=== PATIENT | female | born 1960 | race Two or more races ===

== ENCOUNTER 2017-06-20 08:11 | Inpatient (IN) | payer OTHER ==
[2017-06-20] MEDS ORDERED: SODIUM CHLORIDE 0.9% 1000 ML INFUS.BAG IV STA (08:49)
[2017-06-20] MEDS ORDERED: ACETAMINOPHEN 1000 MG/100 ML VIAL (NON FORMULARY) IVPB ONE (08:51)
--- NOTE | 2017-06-20 09:04 | PDOC ---
History of Present Illness - General Chief Complaint: Psychiatric Stated Complaint: ANXIETY Time Seen by Provider: 06/20/17 08:25 History Source: Patient, EMS Exam Limitations: No Limitations - History of Present Illness Initial Comments: 06/20/17 08:55 The patient is a 56F with a PMH of COPD, hepatic cirrhosis secondary to EtOH abuse who presents to the ED after having a shaking episode. The patient states that she felt "completely fine" until around 0700 this morning where she felt acutely SOB, was shaking, stated she had chills "down to her bone" and her noted that her lips were turning blue. The then called EMS. EMS course significant for vomiting, NBNB. She denies any fever, CP, current SOB, rash, nausea, or vomiting after her initial episode, numbness/tingling/weakness , or changes in vision. Of note, she states that she has had 1 anxiety attack 8- 10 years ago after she stopped drinking cold turkey. She states that this feels like an anxiety attack but she was unable to control it with what she normally does - slow breaths and thinking of "happy thoughts". Past History - Past Medical History Allergies/Adverse Reactions: Allergies Allergy/AdvReac Type Severity Reaction Status Date / Time No Known Allergies Allergy Verified 06/20/17 08:58 Home Medications: Ambulatory Orders Enoxaparin Sodium [Lovenox] 30 mg SQ DAILY 12/19/14 Furosemide [Lasix -] 40 mg PO DAILY 12/19/14 Lactulose 20 gm PO BID 12/19/14 Magnesium Oxide [Mag-Ox -] 400 mg PO BID 12/19/14 Nadolol 20 mg PO HS 12/19/14 Spironolactone 50 mg PO DAILY 12/19/14 Tiotropium [place] [Spiriva] 1 inh PO DAILY 12/19/14 Omeprazole Magnesium [Prilosec Otc] 20 mg PO DAILY 06/20/17 Anemia: No Asthma: Yes COPD: Yes Liver Disease: Yes (CIRRHOSIS) - Suicide/Smoking/Psychosocial Hx Smoking Status: Yes Smoking History: Current every day smoker Have you smoked in the past 12 months: Yes Number of Cigarettes Smoked Daily: 2 Cigars Per Day: 0 'Breaking Loose' booklet given: 01/27/16 Hx Alcohol Use: No Drug/Substance Use Hx: No Substance Use Type: None Hx Substance Use Treatment: No Review of Systems - Review of Systems Able to Perform ROS?: Yes Comments:: 06/20/17 09:05 GENERAL/CONSTITUTIONAL: Positive for chills. No fever or chills. No weakness. HEAD, EYES, EARS, NOSE AND THROAT: No change in vision. No ear pain or discharge. No sore throat. GASTROINTESTINAL: No nausea, vomiting, diarrhea, constipation, or abdominal pain. GENITOURINARY: No dysuria, frequency, hematuria, or change in urination. CARDIOVASCULAR: No chest pain, palpitations, or lightheadedness. RESPIRATORY: Positive for resolved SOB. No cough, wheezing, shortness of breath , or hemoptysis. MUSCULOSKELETAL: Positive for myalgias. No joint or muscle swelling or pain. No neck or back pain. SKIN: No rash or lesions. NEUROLOGIC: No headache, numbness, tingling, weakness, loss of consciousness, or change in strength/sensation. ENDOCRINE: Positive for cold intolerance. No increased thirst. No abnormal weight change. HEMATOLOGIC/LYMPHATIC: No anemia, easy bleeding, or history of blood clots. ALLERGIC/IMMUNOLOGIC: No hives or skin allergy. Is the patient limited [place] proficient: No *Physical Exam - Physical Exam Comments: 06/20/17 09:11 GENERAL: Well developed, well nourished. Awake and alert. No acute distress. HEENT: Normocephalic, atraumatic. Hearing grossly normal. Moist mucous membranes. PERRLA, EOMI. No conjunctival pallor. Sclera are non-icteric. Oropharynx is erythematous. NECK: Supple. Full ROM. No JVD. Mild lymphadenopathy. CARDIOVASCULAR: Regular rate and rhythm. No murmurs, rubs, or gallops. Distal pulses are 2+ and symmetric. PULMONARY: Decreased lung sounds in L upper lobe. No evidence of respiratory distress. No wheezing, rales or rhonchi. ABDOMINAL: Soft. Non-tender. Non-distended. No rebound or guarding. No organomegaly. Normoactive bowel sounds. GENITOURINARY: No CVA tenderness bilaterally. MUSCULOSKELETAL: Normal range of motion at all joints. No bony deformities or tenderness. EXTREMITIES: No cyanosis. No clubbing. No edema. No calf tenderness. SKIN: Warm and dry. Normal capillary refill. No rashes. No jaundice. NEUROLOGICAL: Alert, awake, appropriate. Cranial nerves 2-12 intact. Normal speech. PSYCHIATRIC: Cooperative. Good eye contact. Appropriate mood and affect. 06/20/17 10:42 Heart Score/ECG Review #1 ECG reviewed & interpreted by me at: 09:18 General ECG Interpretation: Sinus Rhythm, Normal Rate, Normal Intervals, No acute ischemic changes Compared to previous ECG there are: Changes noted (New q waves in inferior leads.) ED Treatment Course - LABORATORY CBC & Chemistry Diagram: 06/20/17 09:00 06/20/17 09:00 - RADIOLOGY Radiology Studies Ordered: Category Date Time Status CHEST X-RAY PORTABLE* [RAD] Stat Radiology 06/20/17 08:49 Ordered Medical Decision Making - Medical Decision Making 06/20/17 09:34 The patient is a 56F with a PMH of COPD and liver cirrhosis 2/2 alcoholism who presents to the ED with complaints of myalgias and rigors. Incoming vitals significant for rectal temp of 101.8 with tachycardia of 110. Septic protocol is being followed. Flu swab sent. I also sent TSH/FT4 with concern for cold intolerance. Will give motrin for fever control, zosyn for abx coverage, and 2L fluids. 06/20/17 10:07 Labs significant for lactic acid of 6.5. ICU attending paged. Flu negative. EKG shows no significant change. CXR showing L upper lobe PNA. 06/20/17 10:39 Dr. Cronin, ICU, states that he wants a repeat lactate after 2 L fluids are finished. Order placed. He said he will evaluate the patient in the ER after ICU rounds. 06/20/17 12:34 Repeat lactate of 1.4. BP is 80/49. 2L ordered and running. 06/20/17 13:11 Dr. Cronin recommends the patient go to a tele bed. Order placed. Roseanne consulted. Pt is still getting fluids. *DC/Admit/Observation/Transfer Diagnosis at time of Disposition: COPD exacerbation Pneumonia Qualifiers: Pneumonia type: due to unspecified organism Laterality: left Lung location: upper lobe of lung Qualified Code(s): J18.1 - Lobar pneumonia, unspecified organism - Discharge Dispostion Condition at time of disposition: Guarded Admit: Yes - Referrals Referrals: Alanis Elizondo MD [Primary Care Provider] - - Patient Instructions - Post Discharge Activity
[2017-06-20] MEDS ORDERED: IBUPROFEN 600 MG TABLET (FP) PO ONE ×2 (09:09→09:13)
[2017-06-20 09:13] LABS: BASO % 0.7 % (0-2.0); EOS % 1.4 % (0-4.5); HEMATOCRIT 38.4 % (32.4-45.2); HEMOGLOBIN 12.6 GM/dL (10.7-15.3); LYMPH % 13.1 % (8-40); MCH 31.9 pg (25.7-33.7); MCHC 32.9 g/dl (32.0-36.0); MEAN CELL VOLUME 96.9 fl (80-96); MEAN PLT VOLUME 9.4 fl (7.5-11.1); MONO % 6.7 % (3.8-10.2); NEUT % 78.1 % (42.8-82.8); PLATELET COUNT 52 K/MM3 (134-434); RBC 3.96 M/mm3 (3.60-5.2); RDW 15.6 % (11.6-15.6); WHITE BLOOD COUNT 2.3 K/mm3 (4.0-10.0)
[2017-06-20 09:16] LABS: URINE APPEARANCE CLEAR; URINE BILIRUBIN NEGATIVE (NEGATIVE); URINE BLOOD NEGATIVE (NEGATIVE); URINE COLOR LTYELLOW; URINE GLUCOSE (UA) NEGATIVE (NEGATIVE); URINE KETONE NEGATIVE (NEGATIVE); URINE LEUK ESTERASE NEGATIVE (NEGATIVE); URINE NITRITE NEGATIVE (NEGATIVE); URINE PROTEIN NEGATIVE (NEGATIVE)
[2017-06-20 09:30] LABS: VENOUS PC02 27.8 mmHg (38-52); VENOUS PH 7.41 (7.32-7.42); VENOUS PO2 42.4 mmHg (28-48)
[2017-06-20 09:31] LABS: INR 1.4 (0.82-1.09); PROTHROMBIN TIME (PATIENT) 15.8 SEC (9.98-11.88)
[2017-06-20 09:34] LABS: ACTIVATED PTT 33.1 SECONDS (26.9-34.4)
[2017-06-20 09:35] LABS: ALBUMIN 3.1 g/dl (3.4-5.0); ANION GAP 13 (8-16); BILIRUBIN,TOTAL 1.6 mg/dL (0.2-1.0); BLOOD UREA NITROGEN 7 mg/dL (7-18); CHLORIDE 107 mmol/L (98-107); CO2 18 mmol/L (21-32); CREATININE 0.6 mg/dL (0.55-1.02); GLUCOSE,RANDOM 73 mg/dL (74-106); POTASSIUM 3.9 mmol/L (3.5-5.1); SGOT/AST 34 U/L (15-37); SGPT/ALT 23 U/L (12-78); SODIUM 138 mmol/L (136-145); TOT PROT 6.6 g/dl (6.4-8.2)
[2017-06-20 09:44] LABS: ALK PHOS 131 U/L (45-117)
[2017-06-20] MEDS ORDERED: PIPERACILLIN/TAZOB 4.5 GM/100 ML PRE-DOCKED IVPB ONE (09:59)
--- NOTE | 2017-06-20 10:35 | PDOC ---
Attending Attestation - HPI HPI: 06/20/17 11:13 The patient is a 56 year old female, with a significant past medical history of asthma, COPD, and liver cirrhosis, who presents to the emergency department with chills and witnessed by shaking and turning blue at home this morning. The patient reports one episode of emesis here in the ED, nonbilious/ nonbloody. She denies nausea. She denies chest pain, shortness of breath, headache and dizziness. She denies fever, nausea, diarrhea and constipation. She denies dysuria, frequency, urgency and hematuria. Allergies: NKDA Social history: 1ppw smoker, ETOH (10 years ago) PCP: Dr. Elizondo - Physicial Exam PE: 06/20/17 11:13 Exam Vitals: (+) Febrile (101.8F). Triage Vital signs reviewed General Appearance: (+) ill appering, in moderate distress. Head: Atraumatic, normocephalic Eyes: Pupils equal reactive round, extraocular movement intact Ears: TM's normal bilaterally; Nose: Nares patent bilaterally;no nasal congestion Throat: Posterior oropharynx without erythema, mucous membranes moist, Neck: Supple;No Nuchal rigidity Chest Wall: Nontender Cardiac:(+) Tachcyardic rate with normal rhythm, no murmurs, no rubs, no gallops , Lungs: (+) Decreased breath sounds to upper left lobe Abdomen: Soft, nondistended, normal bowel sounds, nontender to palpation Rectal: Exam deferred Extremities: Full range of motion to all extremities, no cyanosis, clubbing, or edema Skin: Warm and dry, no rashes or lesions, no petechiae Neuro: AOX3; Cranial Nerves 2-12 grossly c intact, Strength intact to all extremities, Sensation intact to all extremities, gait normal Psych: normal mood, normal affect - Medical Decision Making 06/20/17 10:10 Dr. Cronin, [employer], was paged in the ICU. I was informed Dr. Cronin is doing rounds at 10:10 and should try to reach him again in about 20-30 minutes. 06/20/17 10:37 Dr. Cronin returned the page and requests lactic be redrawn at noon after 2 L IV fluid administered. - 06/20/17 11:21 Documentation prepared by Nargsi Davis, acting as medical accounting clerk for Beni Braxton MD, <Nargis Davis - Last Filed: 06/20/17 11:40> - Resident Resident Name: Gurwinder Viramontes - ED Attending Attestation I have performed the following: I have examined & evaluated the patient, The case was reviewed & discussed with the resident, I agree w/resident's findings & plan, Exceptions are as noted - Critical Care Time Total Critical Care Time: 35 Critical Care Statement: The care of this patient involved high complexity decision making to prevent further life threatening deterioration of the patient 's condition and/or to evaluate & treat vital organ system(s) failure or risk of failure. - Medical Decision Making 06/20/17 11:35 History and examination concerning for sepsis secondary to pneumonia. Zosyn ordered 30 mL per [place] normal saline bolus ordered ICU consulted at 1035 for ICU admission Patient seen and evaluated by ICU determined to be stable for MedSurg telemetry. ICU will follow. <Beni Braxton - Last Filed: 06/20/17 17:06> Heart Score/ECG Review - [place] Comment: 06/20/17 11:40 EKG performed at 8:51 demonstrates rate of 106 bpm, rhythm of sinus, axis equal to normal. no T wave inversions, no ST elevations <Nargis Davis - Last Filed: 06/20/17 11:40>
[2017-06-20] MEDS ORDERED: PIPERACILLIN/TAZOB 4.5 GM 4.5 GM/100 ML BAG IVPB ONE (11:15)
[2017-06-20] MEDS ORDERED: SODIUM CHLORIDE 0.9% 1000 ML INFUS.BAG IV ONE (12:30)
--- NOTE | 2017-06-20 13:56 | HP ---
CHIEF COMPLAINT: fever, chills and general malasie at home PCP: Dr. Gomez HISTORY OF PRESENT ILLNESS: Patient is a 56 year old female with a significant past medical history of COPD , hepatic cirrhosis, alcohol abuse (last drink 10 years ago), portal vein thrombosis (on home lovenox). She presented to the ED today with subjective fevers, chills, rigors, palpitations, and full body pains and aches that started earlier today. She also states that she had shortness of breath at home and one episode of vomiting (non bili, non bloody as per pt). She reported feeling faint at home and felt as though she was going to pass out. Patient reported that patient became hypoxic at home and her lips turned blue. She denies any chest pain, diaphoresis, urinary urgency or frequency. She denies any recent travel or any sick contacts. She reports compliance with all her home medications. ER course was notable for: (1) WBC 2.3 (2) BP 78/48, lactic acidosis 6.7 (3) Recent Travel: PAST MEDICAL HISTORY: COPD, hepatic cirrhosis, alcohol abuse (last drink 10 years ago), portal vein thrombosis (on lovenox) PAST SURGICAL HISTORY: Cataract surgery, eustacian tubes Social History: Smoking: none Alcohol: 10 years ago, non recently Drugs: none Family History: Allergies No Known Allergies Allergy (Verified 06/20/17 08:58) HOME MEDICATIONS: Home Medications Medication Instructions Recorded Enoxaparin Sodium [Lovenox] 30 mg SQ DAILY 12/19/14 Furosemide [Lasix -] 40 mg PO DAILY 12/19/14 Lactulose 20 gm PO BID 12/19/14 Magnesium Oxide [Mag-Ox -] 400 mg PO BID 12/19/14 Nadolol 20 mg PO HS 12/19/14 Spironolactone 50 mg PO DAILY 12/19/14 Tiotropium [place] [Spiriva] 1 inh PO DAILY 12/19/14 Omeprazole Magnesium [Prilosec Otc] 20 mg PO DAILY 06/20/17 REVIEW OF SYSTEMS CONSTITUTIONAL: Absent: loss of appetite, weight change HEENT: Absent: rhinorrhea, nasal congestion, throat pain, throat swelling, difficulty swallowing, mouth swelling, ear pain, eye pain, visual changes CARDIOVASCULAR: Absent: chest pain, syncope, palpitations, irregular heart rate, lightheadedness , peripheral edema GENITOURINARY: Absent: dysuria, frequency, urgency, hesitancy, hematuria, flank pain, genital pain MUSCULOSKELETAL: Absent: myalgia, arthralgia, joint swelling, back pain, neck pain SKIN: Absent: rash, itching, pallor HEMATOLOGIC/IMMUNOLOGIC: Absent: easy bleeding, easy bruising, lymphadenopathy, frequent infections ENDOCRINE: Absent: unexplained weight gain, unexplained weight loss, heat intolerance, cold intolerance NEUROLOGIC: Absent: headache, focal weakness or paresthesias, dizziness, unsteady gait, seizure, mental status changes, bladder or bowel incontinence PSYCHIATRIC: Absent: anxiety, depression, suicidal or homicidal ideation, hallucinations. PHYSICAL EXAMINATION Vital Signs - 24 hr 06/20/17 06/20/17 06/20/17 08:15 08:40 08:45 Temperature 101.8 F H 101.8 F H Pulse Rate 117 H Pulse Rate [ 112 H Apical] Respiratory 22 20 Rate Blood Pressure 101/63 Blood Pressure [Right] O2 Sat by Pulse 100 99 100 Oximetry (%) 06/20/17 06/20/17 06/20/17 11:21 11:54 12:44 Temperature 98.9 F Pulse Rate Pulse Rate [ 90 89 90 Apical] Respiratory 20 18 18 Rate Blood Pressure Blood Pressure 84/47 75/43 80/49 [Right] O2 Sat by Pulse 100 98 Oximetry (%) GENERAL: Awake, alert, and fully oriented, in no acute distresss, frail, thin, disheveled HEAD: Normal with no signs of trauma. EYES: Pupils equal, round and reactive to light, extraocular movements intact, sclera anicteric, conjunctiva clear. No lid lag. EARS, NOSE, THROAT: Ears normal, nares patent, oropharynx clear without exudates. Moist mucous membranes. NECK: Normal range of motion, supple without lymphadenopathy, JVD, or masses. LUNGS: Breath sounds equal, clear to auscultation bilaterally. No wheezes, and no crackles. No accessory muscle use. HEART: Regular rate and rhythm, normal S1 and S2 without murmur, rub or gallop. ABDOMEN: Soft, nontender, not distended, normoactive bowel sounds, no guarding, no rebound, no masses. No hepatomegaly or splenomegaly. MUSCULOSKELETAL: Normal range of motion at all joints. No bony deformities or tenderness. No CVA tenderness. UPPER EXTREMITIES: 2+ pulses, warm, well-perfused. No cyanosis. No clubbing. No peripheral edema. LOWER EXTREMITIES: 2+ pulses, warm, well-perfused. No calf tenderness. No peripheral edema. NEUROLOGICAL: Cranial nerves II-XII intact. Normal speech. Normal gait. PSYCHIATRIC: Cooperative. Good eye contact. Appropriate mood and affect. SKIN: Warm, dry, normal turgor, no rashes or lesions noted, normal capillary refill. Laboratory Results - last 24 hr 06/20/17 06/20/17 06/20/17 09:00 09:00 09:00 WBC 2.3 L RBC 3.96 Hgb 12.6 Hct 38.4 MCV 96.9 H MCH 31.9 MCHC 32.9 RDW 15.6 Plt Count 52 L MPV 9.4 Neutrophils % 78.1 D Lymphocytes % 13.1 D Monocytes % 6.7 Eosinophils % 1.4 Basophils % 0.7 PT with INR 15.80 H INR 1.40 H PTT (Actin FS) 33.1 VBG pH POC VBG pCO2 POC VBG pO2 Mixed VBG HCO3 Sodium Potassium Chloride Carbon Dioxide Anion Gap BUN Creatinine Creat Clearance w eGFR Random Glucose Lactic Acid Calcium Total Bilirubin AST ALT Alkaline Phosphatase Ammonia Creatine Kinase Troponin I Total Protein Albumin TSH Free T4 Urine Color Ltyellow Urine Appearance Clear Urine pH 6.0 Ur Specific [place] 1.009 Urine Protein Negative Urine Glucose (UA) Negative Urine Ketones Negative Urine Blood Negative Urine Nitrite Negative Urine Bilirubin Negative Urine Urobilinogen 2.0 H Blood Type Antibody Screen 06/20/17 06/20/17 06/20/17 09:00 09:00 09:00 WBC RBC Hgb Hct MCV MCH MCHC RDW Plt Count MPV Neutrophils % Lymphocytes % Monocytes % Eosinophils % Basophils % PT with INR INR PTT (Actin FS) VBG pH POC VBG pCO2 POC VBG pO2 Mixed VBG HCO3 Sodium 138 Potassium 3.9 Chloride 107 Carbon Dioxide 18 L D Anion Gap 13 BUN 7 Creatinine 0.6 Creat Clearance w eGFR > 60 Random Glucose 73 L Lactic Acid 6.5 H* Calcium 8.0 L Total Bilirubin 1.6 H AST 34 ALT 23 Alkaline Phosphatase 131 H Ammonia Creatine Kinase 140 Troponin I < 0.02 Total Protein 6.6 Albumin 3.1 L TSH 5.35 H Free T4 1.22 Urine Color Urine Appearance Urine pH Ur Specific [place] Urine Protein Urine Glucose (UA) Urine Ketones Urine Blood Urine Nitrite Urine Bilirubin Urine Urobilinogen Blood Type A POSITIVE Antibody Screen Negative 06/20/17 06/20/17 06/20/17 09:00 09:05 09:17 WBC RBC Hgb Hct MCV MCH MCHC RDW Plt Count MPV Neutrophils % Lymphocytes % Monocytes % Eosinophils % Basophils % PT with INR INR PTT (Actin FS) VBG pH 7.41 POC VBG pCO2 27.8 L POC VBG pO2 42.4 Mixed VBG HCO3 17.2 L Sodium Potassium Chloride Carbon Dioxide Anion Gap BUN Creatinine Creat Clearance w eGFR Random Glucose Lactic Acid Calcium Total Bilirubin AST ALT Alkaline Phosphatase Ammonia 33.37 H Creatine Kinase Troponin I Total Protein Albumin TSH Cancelled Free T4 Cancelled Urine Color Urine Appearance Urine pH Ur Specific [place] Urine Protein Urine Glucose (UA) Urine Ketones Urine Blood Urine Nitrite Urine Bilirubin Urine Urobilinogen Blood Type Antibody Screen 06/20/17 12:00 WBC RBC Hgb Hct MCV MCH MCHC RDW Plt Count MPV Neutrophils % Lymphocytes % Monocytes % Eosinophils % Basophils % PT with INR INR PTT (Actin FS) VBG pH POC VBG pCO2 POC VBG pO2 Mixed VBG HCO3 Sodium Potassium Chloride Carbon Dioxide Anion Gap BUN Creatinine Creat Clearance w eGFR Random Glucose Lactic Acid 1.4 Calcium Total Bilirubin AST ALT Alkaline Phosphatase Ammonia Creatine Kinase Troponin I Total Protein Albumin TSH Free T4 Urine Color Urine Appearance Urine pH Ur Specific [place] Urine Protein Urine Glucose (UA) Urine Ketones Urine Blood Urine Nitrite Urine Bilirubin Urine Urobilinogen Blood Type Antibody Screen ASSESSMENT/PLAN: Patient is a 56 year old female with a significant past medical history of COPD , hepatic cirrhosis, alcohol abuse (last drink 10 years ago), portal vein thrombosis (on home lovenox). She presented to the ED today with subjective fevers, chills, rigors, palpitations, and full body pains and aches that started earlier today. She also states that she had shortness of breath at home and one episode of vomiting (non bili, non bloody as per pt). She reported feeling faint at home and felt as though she was going to pass out. Patient reported that patient became hypoxic at home and her lips turned blue. She denies any chest pain, diaphoresis, urinary urgency or frequency. She denies any recent travel or any sick contacts. She reports compliance with all her home medications. Imaging: Chest xray: interstitial opacities in the LUX with infiltrates CT/Abd/Pelvis CT w/contrast 06/20/2017: with following findings: cirrhotic configuation of the liver and portal vein thrombosis with heterogenous enhancement of the hepatic parencyma. Underlying hepatic malignancy cannot be excluded. Portal vein thrombosis may be tumor thrombus. No evidence of acute cholecystitis. Gastric wall thickening, extensive wall thickening through the colon and wall thickening in multiple small bowel loops. Moderate abdominopelvic ascites. Pulmonary: Sepsis secondary to Pneumonia, acute Hypotensive with lactic acidosis in ED, noted to also have leukopenia Lactic acidosis 6.5>1.4 Hypotensive improved with IVF, pt systolic BP in 100s on previous admission On Zosyn as per ID On Supplemental oxygen Monitor respiratory status closely Pulmonary following ID following COPD with acute bronchitis Duonebs scheduled Supplemental oxygen GI: Hepatic cirrhosis, chronic On Lactulose 20gm BID Moderate abdominopelvic ascites seen on Ct GI consult Hematology: Thrombocytopenia @ 52, leukopenia 2.3 Thrombocytopenia may be due to sepsis CBC in a.m. to continue to trend Bleeding risk Portal vein Thrombosis: Subtherapeutic Lovenox 30mg home dose, pt reports pt is followed by Dr. Segura, hematology and she has been on this Lovenox dose for over 6 years Hematology consulted Patient is a bleeding risk, comes in with low platelets, defer to heme for Lovenox adjustment, if any As per CT scan of abd. pelvis, underlying hepatic malignancy cannot be excluded Hepatic malignancy as per oncology/hematology F.E.N. Fluids: NS @ 100cc/hr Electrolytes: hypomag repleted Nutrition: low sodium DVT: Lovenox 30mg home dose GI: Protonix Disposition: full code.
[2017-06-20] MEDS ORDERED: PIPERACILLIN/TAZOB 3.375 GM 50 ML IVPB SCH (14:00)
--- NOTE | 2017-06-20 15:09 | CONSULT ---
Consultation: REQUESTING PROVIDER: Dr. Gurwinder Viramontes CONSULT REQUEST: We have been asked to medically evaluate this patient for critical care. HISTORY OF PRESENT ILLNESS: 56 y/o F w/PMH of COPD, hepatic cirrhosis, alcohol abuse (last drink 10 years ago), portal vein thrombosis (on lovenox) presents to the ER with sudden feeling of fevers, chills, rigors, palpitations, and full body pains and aches that started at 7am this morning. She also had SOB, 1 episode of emesis that was non-bloody, felt light-headed, and felt as though she was going to syncopize but did not have LOC, and has L ear pain. According to she turned pale and lips were blue. Pt was feeling well before these symptoms began earlier today and was at baseline health. She denies having these symptoms in the past. She took tylenol with no relief. She denies recent travel, any changes in meds over the last 2-3 months, new cough (has baseline smoker's cough ), sputum production, rhinorrhea, epiphora, chest pain, chest pain with deep inspiration or position changes, abd pain, diarrhea, constipation, dysuria, blood in urine, lower extremity swelling. Has been compliant with her medications. Sick contact includes a child with pink eye. Saw PCP (Dr. Gomez) 2 weeks ago and had flu shot then. PMH:COPD, hepatic cirrhosis, alcohol abuse (last drink 10 years ago), portal vein thrombosis (on lovenox) PSH: Cataract sx, eustacian tubes placed at 14 yo SH: Smokes 1 ppw. Last alcoholic drink was 10 years ago. Denies drug use. FH: Lymphoma in father and aunt. Cervical ca in mother. REVIEW OF SYSTEMS: CONSTITUTIONAL: +fever, chills, generalized weakness HEENT: +L ear pain Absent: rhinorrhea, nasal congestion, eye pain, epiphora CARDIOVASCULAR: +palpitations, light-headedness Absent: chest pain, syncope, peripheral edema RESPIRATORY: +SOB (now resolved) GASTROINTESTINAL: +1 episode of emesis Absent: abdominal pain, abdominal distension, nausea, diarrhea, constipation, melena, hematochezia GENITOURINARY: Absent: dysuria, frequency, hematuria MUSCULOSKELETAL: +joint pains NEUROLOGIC: +light-headedness, headache Home Medication List Medication Instructions Recorded Confirmed Type Enoxaparin Sodium [Lovenox] 30 mg SQ DAILY 12/19/14 06/20/17 History Furosemide [Lasix -] 40 mg PO DAILY 12/19/14 06/20/17 History Lactulose 20 gm PO BID 12/19/14 06/20/17 History Magnesium Oxide [Mag-Ox -] 400 mg PO BID 12/19/14 06/20/17 History Nadolol 20 mg PO HS 12/19/14 06/20/17 History Spironolactone 50 mg PO DAILY 12/19/14 06/20/17 History Tiotropium [place] [Spiriva] 1 inh PO DAILY 12/19/14 06/20/17 History Omeprazole Magnesium [Prilosec Otc] 20 mg PO DAILY 06/20/17 06/20/17 History PHYSICAL EXAMINATION Vital Signs Temperature 98.6 F 06/20/17 14:05 Pulse Rate 89 06/20/17 14:05 Respiratory Rate 20 06/20/17 14:05 Blood Pressure 78/48 06/20/17 14:05 O2 Sat by Pulse Oximetry (%) 100 06/20/17 14:05 GENERAL: Awake, alert, and fully oriented, in mild distress from chills. EYES: extraocular movements intact, sclera anicteric, conjunctiva clear. LUNGS: Decreased breath sounds in L upper lung field HEART: Regular rate and rhythm, normal S1 and S2 ABDOMEN: Soft, mild lower abd tenderness (which she states is at her baseline from her lovenox injections), not distended, normoactive bowel sounds, no guarding. MUSCULOSKELETAL: No CVA tenderness. LOWER EXTREMITIES: 2+ pulses, warm, well-perfused. No peripheral edema. PSYCHIATRIC: Cooperative. Good eye contact. Appropriate mood and affect. SKIN: Warm, dry, normal turgor, no rashes or lesions noted. Laboratory Results - last 24 hr 06/20/17 06/20/17 06/20/17 09:00 09:00 09:00 WBC 2.3 L RBC 3.96 Hgb 12.6 Hct 38.4 MCV 96.9 H MCH 31.9 MCHC 32.9 RDW 15.6 Plt Count 52 L MPV 9.4 Neutrophils % 78.1 D Lymphocytes % 13.1 D Monocytes % 6.7 Eosinophils % 1.4 Basophils % 0.7 PT with INR 15.80 H INR 1.40 H PTT (Actin FS) 33.1 VBG pH POC VBG pCO2 POC VBG pO2 Mixed VBG HCO3 Sodium Potassium Chloride Carbon Dioxide Anion Gap BUN Creatinine Creat Clearance w eGFR Random Glucose Lactic Acid Calcium Total Bilirubin AST ALT Alkaline Phosphatase Ammonia Creatine Kinase Troponin I Total Protein Albumin TSH Free T4 Urine Color Ltyellow Urine Appearance Clear Urine pH 6.0 Ur Specific [place] 1.009 Urine Protein Negative Urine Glucose (UA) Negative Urine Ketones Negative Urine Blood Negative Urine Nitrite Negative Urine Bilirubin Negative Urine Urobilinogen 2.0 H Blood Type Antibody Screen 06/20/17 06/20/17 06/20/17 09:00 09:00 09:00 WBC RBC Hgb Hct MCV MCH MCHC RDW Plt Count MPV Neutrophils % Lymphocytes % Monocytes % Eosinophils % Basophils % PT with INR INR PTT (Actin FS) VBG pH POC VBG pCO2 POC VBG pO2 Mixed VBG HCO3 Sodium 138 Potassium 3.9 Chloride 107 Carbon Dioxide 18 L D Anion Gap 13 BUN 7 Creatinine 0.6 Creat Clearance w eGFR > 60 Random Glucose 73 L Lactic Acid 6.5 H* Calcium 8.0 L Total Bilirubin 1.6 H AST 34 ALT 23 Alkaline Phosphatase 131 H Ammonia Creatine Kinase 140 Troponin I < 0.02 Total Protein 6.6 Albumin 3.1 L TSH 5.35 H Free T4 1.22 Urine Color Urine Appearance Urine pH Ur Specific [place] Urine Protein Urine Glucose (UA) Urine Ketones Urine Blood Urine Nitrite Urine Bilirubin Urine Urobilinogen Blood Type A POSITIVE Antibody Screen Negative 06/20/17 06/20/17 06/20/17 09:00 09:05 09:17 WBC RBC Hgb Hct MCV MCH MCHC RDW Plt Count MPV Neutrophils % Lymphocytes % Monocytes % Eosinophils % Basophils % PT with INR INR PTT (Actin FS) VBG pH 7.41 POC VBG pCO2 27.8 L POC VBG pO2 42.4 Mixed VBG HCO3 17.2 L Sodium Potassium Chloride Carbon Dioxide Anion Gap BUN Creatinine Creat Clearance w eGFR Random Glucose Lactic Acid Calcium Total Bilirubin AST ALT Alkaline Phosphatase Ammonia 33.37 H Creatine Kinase Troponin I Total Protein Albumin TSH Cancelled Free T4 Cancelled Urine Color Urine Appearance Urine pH Ur Specific [place] Urine Protein Urine Glucose (UA) Urine Ketones Urine Blood Urine Nitrite Urine Bilirubin Urine Urobilinogen Blood Type Antibody Screen 06/20/17 12:00 WBC RBC Hgb Hct MCV MCH MCHC RDW Plt Count MPV Neutrophils % Lymphocytes % Monocytes % Eosinophils % Basophils % PT with INR INR PTT (Actin FS) VBG pH POC VBG pCO2 POC VBG pO2 Mixed VBG HCO3 Sodium Potassium Chloride Carbon Dioxide Anion Gap BUN Creatinine Creat Clearance w eGFR Random Glucose Lactic Acid 1.4 Calcium Total Bilirubin AST ALT Alkaline Phosphatase Ammonia Creatine Kinase Troponin I Total Protein Albumin TSH Free T4 Urine Color Urine Appearance Urine pH Ur Specific [place] Urine Protein Urine Glucose (UA) Urine Ketones Urine Blood Urine Nitrite Urine Bilirubin Urine Urobilinogen Blood Type Antibody Screen Imaging: CXR: Interstital opacities in the left upper lobe suggestive of infiltrates. Micro: Blood culture 06/20/17: Pending Urine culture 06/20/17: pending Flu nasal swab 06/20/17: negative Active Medications Piperacillin/Tazobactam/Dextrose (Zosyn 3.375gm Ivpb (Premix)) 50 mls @ 100 mls /hr IVPB Q8H-IV CECILIA PRN Reason: Protocol Last Admin: 06/20/17 14:19 Dose: Not Given ASSESSMENT/PLAN: 56 y/o F w/PMH of COPD, hepatic cirrhosis, alcohol abuse (last drink 10 years ago), portal vein thrombosis (on lovenox) presents to the ER with sudden feeling of fevers, chills, rigors, palpitations, and full body pains and aches that started at 7am this morning. Neuro: -Awake, alert, and oriented x3. Pt is at baseline mental status. C/V: -Sepsis secondary to likely to HCAP -c/w abx as per ID -Keep MAP > 65, IVF - NS -f/u cultures -lactic acid now normalized s/p 2 L fluids -vital signs q4h Resp: -COPD -c/w spiriva -keep O2 saturation above 90% -GI: -Liver cirrhosis -monitor aminotransferases -pt w/hx of alcohol abuse -Portal vein thrombosis -c/w lovenox -DVT ppx -c/w lovenox (on lovenox for portal vein thrombosis) -FEN -IVF - NS to maintain MAP >65 -Replete lytes as needed -Dispo: -Pt's clinical status improving s/p fluids and abx. BP improved s/p fluids. Mental status at baseline. Pt at this time does not require the ICU and can be managed on medical floors. <Eyd Macias - Last Filed: 06/20/17 15:11> Consultation: REQUESTING PROVIDER: CONSULT REQUEST: We have been asked to medically evaluate this patient for ( specify). HISTORY OF PRESENT ILLNESS: PHYSICAL EXAMINATION Vital Signs - 24 hr 06/20/17 06/20/17 06/20/17 08:15 08:40 08:45 Temperature 101.8 F H 101.8 F H Pulse Rate 117 H Pulse Rate [ 112 H Apical] Respiratory 22 20 Rate Blood Pressure 101/63 Blood Pressure [Right] O2 Sat by Pulse 100 99 100 Oximetry (%) 06/20/17 06/20/17 06/20/17 11:21 11:54 12:44 Temperature 98.9 F Pulse Rate Pulse Rate [ 90 89 90 Apical] Respiratory 20 18 18 Rate Blood Pressure Blood Pressure 84/47 75/43 80/49 [Right] O2 Sat by Pulse 100 98 Oximetry (%) 06/20/17 14:05 Temperature 98.6 F Pulse Rate Pulse Rate [ 89 Apical] Respiratory 20 Rate Blood Pressure Blood Pressure 78/48 [Right] O2 Sat by Pulse 100 Oximetry (%) Laboratory Results - last 24 hr 06/20/17 06/20/17 06/20/17 09:00 09:00 09:00 WBC 2.3 L RBC 3.96 Hgb 12.6 Hct 38.4 MCV 96.9 H MCH 31.9 MCHC 32.9 RDW 15.6 Plt Count 52 L MPV 9.4 Neutrophils % 78.1 D Lymphocytes % 13.1 D Monocytes % 6.7 Eosinophils % 1.4 Basophils % 0.7 PT with INR 15.80 H INR 1.40 H PTT (Actin FS) 33.1 VBG pH POC VBG pCO2 POC VBG pO2 Mixed VBG HCO3 Sodium Potassium Chloride Carbon Dioxide Anion Gap BUN Creatinine Creat Clearance w eGFR Random Glucose Lactic Acid Calcium Magnesium Total Bilirubin AST ALT Alkaline Phosphatase Ammonia Creatine Kinase Troponin I Total Protein Albumin TSH Free T4 Urine Color Ltyellow Urine Appearance Clear Urine pH 6.0 Ur Specific [place] 1.009 Urine Protein Negative Urine Glucose (UA) Negative Urine Ketones Negative Urine Blood Negative Urine Nitrite Negative Urine Bilirubin Negative Urine Urobilinogen 2.0 H Ur Leukocyte Esterase Negative Blood Type Antibody Screen 06/20/17 06/20/17 06/20/17 09:00 09:00 09:00 WBC RBC Hgb Hct MCV MCH MCHC RDW Plt Count MPV Neutrophils % Lymphocytes % Monocytes % Eosinophils % Basophils % PT with INR INR PTT (Actin FS) VBG pH POC VBG pCO2 POC VBG pO2 Mixed VBG HCO3 Sodium 138 Potassium 3.9 Chloride 107 Carbon Dioxide 18 L D Anion Gap 13 BUN 7 Creatinine 0.6 Creat Clearance w eGFR > 60 Random Glucose 73 L Lactic Acid 6.5 H* Calcium 8.0 L Magnesium 1.6 L Total Bilirubin 1.6 H AST 34 ALT 23 Alkaline Phosphatase 131 H Ammonia Creatine Kinase 140 Troponin I < 0.02 Total Protein 6.6 Albumin 3.1 L TSH 5.35 H Free T4 1.22 Urine Color Urine Appearance Urine pH Ur Specific [place] Urine Protein Urine Glucose (UA) Urine Ketones Urine Blood Urine Nitrite Urine Bilirubin Urine Urobilinogen Ur Leukocyte Esterase Blood Type A POSITIVE Antibody Screen Negative 06/20/17 06/20/17 06/20/17 09:00 09:05 09:17 WBC RBC Hgb Hct MCV MCH MCHC RDW Plt Count MPV Neutrophils % Lymphocytes % Monocytes % Eosinophils % Basophils % PT with INR INR PTT (Actin FS) VBG pH 7.41 POC VBG pCO2 27.8 L POC VBG pO2 42.4 Mixed VBG HCO3 17.2 L Sodium Potassium Chloride Carbon Dioxide Anion Gap BUN Creatinine Creat Clearance w eGFR Random Glucose Lactic Acid Calcium Magnesium Total Bilirubin AST ALT Alkaline Phosphatase [place]monia 33.37 H Creatine Kinase Troponin I Total Protein Albumin TSH Cancelled Free T4 Cancelled Urine Color Urine Appearance Urine pH Ur Specific [place] Urine Protein Urine Glucose (UA) Urine Ketones Urine Blood Urine Nitrite Urine Bilirubin Urine Urobilinogen Ur Leukocyte Esterase Blood Type Antibody Screen 06/20/17 12:00 WBC RBC Hgb Hct MCV MCH MCHC RDW Plt Count MPV Neutrophils % Lymphocytes % Monocytes % Eosinophils % Basophils % PT with INR INR PTT (Actin FS) VBG pH POC VBG pCO2 POC VBG pO2 Mixed VBG HCO3 Sodium Potassium Chloride Carbon Dioxide Anion Gap BUN Creatinine Creat Clearance w eGFR Random Glucose Lactic Acid 1.4 Calcium Magnesium Total Bilirubin AST ALT Alkaline Phosphatase Ammonia Creatine Kinase Troponin I Total Protein Albumin TSH Free T4 Urine Color Urine Appearance Urine pH Ur Specific [place] Urine Protein Urine Glucose (UA) Urine Ketones Urine Blood Urine Nitrite Urine Bilirubin Urine Urobilinogen Ur Leukocyte Esterase Blood Type Antibody Screen Active Medications Generic Name Dose Route Start Last Admin Trade Name Freq PRN Reason Stop Dose Admin Piperacillin/Tazobactam/Dextrose 50 mls @ 100 mls/hr 06/20/17 14:00 06/20/17 14:19 Zosyn 3.375gm Ivpb (Premix) IVPB Not Given Q8H-IV CECILIA Protocol ASSESSMENT/PLAN: Patient has cleared her lactic acid to only 1.4. She is awake, alert, and oriented. She is not tachycardic and appears comfortable. Last cycled MAP: 66. Patient known to have low BP likely due to low flow state due to cirrhosis. Should address dose of Lovenox as patient with known IVC thrombus and her lovenox dose is only for prophylaxis. Vital signs have been ordered Q 4 hours. Please inform us for change in status. Dispo: We will continue to follow the patient. Thank you for this consultative opportunity. <Shahzad Cronin - Last Filed: 06/20/17 15:43> Visit type - Emergency Visit Emergency Visit: Yes ED Registration Date: 06/20/17 Care time: The patient presented to the Emergency Department on the above date and was hospitalized for further evaluation of their emergent condition. - New Patient This patient is new to me today: Yes Date on this admission: 06/20/17 - Critical Care Critical Care patient: No <Edy Macias - Last Filed: 06/20/17 15:11>
[2017-06-20 15:26] LABS: MAGNESIUM 1.6 mg/dL (1.8-2.4)
[2017-06-20] MEDS ORDERED: SODIUM CHLORIDE 1,000 ML IV SCH ×2 (15:45→17:39)
[2017-06-20] MEDS ORDERED: MAGNESIUM SULF 50% (8.12 MEQ/2 ML-1 GM VIAL) IVPB ONE (15:45)
--- NOTE | 2017-06-20 16:14 | CON.PULM ---
Consult Consult Specialty:: PULMONARY Referred by:: ZACHARY Reason for Consultation:: SOB - History of Present Illness Chief Complaint: SOB/FEVER/CHILLS History of Present Illness: The patient is a 56F with a PMH of COPD, hepatic cirrhosis secondary to EtOH abuse who presents to the ED after having a shaking episode. The patient states that she felt "completely fine" until around 0700 this morning where she felt acutely SOB, was shaking, stated she had chills "down to her bone" and her noted that her lips were turning blue. The then called EMS. EMS course significant for vomiting, NBNB. She denies any fever, CP, current SOB, rash, nausea, or vomiting after her initial episode, numbness/tingling/weakness , or changes in vision. Of note, she states that she has had 1 anxiety attack 8- 10 years ago after she stopped drinking cold turkey. Patient denies sick contacts and is compliant with her meds. 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 No: O2 Dependent Gastrointestinal: Yes: Ascites, Esophageal Varices, Other (ETOH INDUCED CIRRHOSIS PORTAL VEIN THROMBOSIS) Hepatobiliary: Yes: Cirrhosis, Cholelithiasis Renal/: No: Renal Failure Reproductive: Yes: Postmenopausal ...: No Heme/Onc: Yes: Anemia, Thrombocytopenia, Other (LEUKOPENIA) Infectious Disease: Yes: Other (HEP -). No: AIDS - Alcohol/Substance Use Hx Alcohol Use: No - Smoking History Smoking history: Current every day smoker Have you smoked in the past 12 months: Yes Aproximately how many cigarettes per day: 2 - Social History Usual Living Arrangement: Other (FAMILY) ADL: Family Assistance Place of : [facility] History of Recent Travel: No Home Medications - Allergies Allergies/Adverse Reactions: Allergies Allergy/AdvReac Type Severity Reaction Status Date / Time No Known Allergies Allergy Verified 06/20/17 08:58 - Home Medications Home Medications: Ambulatory Orders Enoxaparin Sodium [Lovenox] 30 mg SQ DAILY 12/19/14 Furosemide [Lasix -] 40 mg PO DAILY 12/19/14 Lactulose 20 gm PO BID 12/19/14 Magnesium Oxide [Mag-Ox -] 400 mg PO BID 12/19/14 Nadolol 20 mg PO HS 12/19/14 Spironolactone 50 mg PO DAILY 12/19/14 Tiotropium [place] [Spiriva] 1 inh PO DAILY 12/19/14 Omeprazole Magnesium [Prilosec Otc] 20 mg PO DAILY 06/20/17 Family Disease History - Family Disease History Family History: Unremarkable Review of Systems - Review of Systems Constitutional: reports: Fever, Lethargy Eyes: reports: Blurred Vision HENT: denies: Difficult Swallowing Neck: denies: Decreased ROM Cardiovascular: reports: Shortness of Breath. denies: Chest Pain Respiratory: reports: SOB on Exertion. denies: Hemoptysis, Orthopnea, Wheezing Gastrointestinal: denies: Abdominal Pain Genitourinary: reports: No Symptoms Breasts: reports: No Symptoms Reported Musculoskeletal: reports: No Symptoms Integumentary: reports: No Symptoms Physical Exam Vital Sings: Vital Signs Temperature 98.6 F 06/20/17 14:05 Pulse Rate 89 06/20/17 14:05 Respiratory Rate 20 06/20/17 14:05 Blood Pressure 78/48 06/20/17 14:05 O2 Sat by Pulse Oximetry (%) 100 06/20/17 14:05 Constitutional: Yes: Calm, Poor Hygeine, Thin Eyes: Yes: EOM Intact HENT: Yes: Normocephalic Neck: Yes: Trachea Midline Cardiovascular: Yes: Regular Rate and Rhythm, S1, S2 Respiratory: Yes: Diminished, Hyperresonant. No: Rales, Wheezes Gastrointestinal: Yes: Soft, Ascites Renal/: Yes: WNL Edema: No Labs: CBC, BMP 06/20/17 09:00 06/20/17 09:00 Imaging - Results Chest X-ray: Report Reviewed, Image Reviewed Cat Scan: Report Reviewed, Image Reviewed Problem List - Problems (1) COPD exacerbation Code(s): J44.1 - CHRONIC OBSTRUCTIVE PULMONARY DISEASE W (ACUTE) EXACERBATION (2) Pneumonia Code(s): J18.9 - PNEUMONIA, UNSPECIFIED ORGANISM Qualifiers: Pneumonia type: due to unspecified organism Laterality: left Lung location: upper lobe of lung Qualified Code(s): J18.1 - Lobar pneumonia, unspecified organism (3) Cirrhosis Code(s): K74.60 - UNSPECIFIED CIRRHOSIS OF LIVER (4) DVT prophylaxis Code(s): [id number] - (5) Leukopenia Code(s): D72.819 - DECREASED WHITE BLOOD CELL COUNT, UNSPECIFIED Assessment/Plan Etoh induced cirrhosis with portyal vein thrombosis on lovenox sudden shaking chills/sob/weakness noted lactic acid elevation/LUX infiltrate COPD panculture/iv fluids/o2 supplementation/empiric antibiotics lovenox to continue bronchodilators as needed consider ct chest when stable Paola COWART MD
[2017-06-20] MEDS ORDERED: MAGNESIUM SULF 50% (8.12 MEQ/2 ML-1 GM VIAL) ONE (16:43)
[2017-06-20] MEDS: ALBUTEROL SO4 2.5/IPRATROPIUM 0.5 INH SOL 3 ML VIAL.NEB. NEB SCH ×2 (19:15→23:57)
[2017-06-20 20:30] VITALS: BMI 18.5
[2017-06-20] MEDS: MAGNESIUM OXIDE 400 MG TABLET (FP) PO SCH (22:58)
[2017-06-20] MEDS: LACTULOSE 20 GM/30 ML UDC (FOR ORAL USE ONLY) PO SCH (22:58)
[2017-06-20] MEDS: NADOLOL 20 MG TABLET (FP) PO SCH (22:58)
[2017-06-21] MEDS ORDERED: PT OWN MED DRAWER 7, Y5N ONE ×2 (02:52→18:49)
[2017-06-21] MEDS: PIPERACILLIN/TAZOB 3.375 GM 3.375 GM in DEXTROSE 5%-WATER - 100 ML IVPB SCH ×3 (03:08→18:54)
[2017-06-21] MEDS: ALBUTEROL SO4 2.5/IPRATROPIUM 0.5 INH SOL 3 ML VIAL.NEB. NEB SCH ×4 (06:55→23:10)
[2017-06-21 07:28] LABS: HEMATOCRIT 37.2 % (32.4-45.2); MCH 31.6 pg (25.7-33.7); MCHC 32.4 g/dl (32.0-36.0); MEAN CELL VOLUME 97.7 fl (80-96); MEAN PLT VOLUME 10.4 fl (7.5-11.1); PLATELET COUNT 49 K/MM3 (134-434); RDW 15.9 % (11.6-15.6); WHITE BLOOD COUNT 4.1 K/mm3 (4.0-10.0)
[2017-06-21 07:42] LABS: ALBUMIN 2.7 g/dl (3.4-5.0); ANION GAP 13 (8-16); BLOOD UREA NITROGEN 7 mg/dL (7-18); CHLORIDE 116 mmol/L (98-107); CO2 16 mmol/L (21-32); CREATININE 0.5 mg/dL (0.55-1.02); GLUCOSE,RANDOM 79 mg/dL (74-106); MAGNESIUM 2.3 mg/dL (1.8-2.4); POTASSIUM 3.4 mmol/L (3.5-5.1); SGOT/AST 39 U/L (15-37); SGPT/ALT 21 U/L (12-78); SODIUM 145 mmol/L (136-145)
[2017-06-21 07:43] LABS: ALK PHOS 112 U/L (45-117); BILIRUBIN,TOTAL 1.3 mg/dL (0.2-1.0); TOT PROT 5.8 g/dl (6.4-8.2)
[2017-06-21] MEDS ORDERED: POTASSIUM CHLORIDE TABS 20 MEQ TABLET.ER (FP) PO ONE ×2 (07:52→11:00)
[2017-06-21] MEDS: PANTOPRAZOLE 20 MG TABLET (FP) PO SCH (10:31)
[2017-06-21] MEDS: SPIRONOLACTONE 25 MG TABLET (FP) PO SCH (10:31)
[2017-06-21] MEDS: LACTULOSE 20 GM/30 ML UDC (FOR ORAL USE ONLY) PO SCH ×2 (10:31→18:54)
[2017-06-21] MEDS: MAGNESIUM OXIDE 400 MG TABLET (FP) PO SCH ×2 (10:31→22:57)
[2017-06-21] MEDS: ENOXAPARIN NA (PORCINE) 30 MG/0.3 ML DISP.SYRIN SQ SCH (10:31)
--- NOTE | 2017-06-21 11:18 | EKG ---
Test Reason : Blood Pressure : / mmHG Vent. Rate : 106 BPM Atrial Rate : 106 BPM P-R Int : 154 ms QRS Dur : 088 ms QT Int : 348 ms P-R-T Axes : 079 073 041 degrees QTc Int : 462 ms SINUS TACHYCARDIA POSSIBLE LEFT ATRIAL ENLARGEMENT T WAVE ABNORMALITY, CONSIDER INFERIOR ISCHEMIA ABNORMAL ECG WHEN COMPARED WITH ECG OF 25-NOV-2015 05:55, VENT. RATE HAS INCREASED BY 36 BPM CLINICAL CORRELATION IS RECOMMENDED Confirmed by MALI LLANES MD ([id number]) on 06/21/2017 11:18:19 AM Referred By: Confirmed By:MALI LLANES MD
--- NOTE | 2017-06-21 12:51 | PN ---
Progress Note (short form) - Note Progress Note: Agitated because the room is cold. Reports some non-specific abdominal discomfort. Intake & Output 06/18/17 06/19/17 06/20/17 06/21/17 23:59 23:59 23:59 23:59 Intake Total 400 700 Balance 400 700 Weight 95 lb Last Vital Signs Temp Pulse Resp BP Pulse Ox 98 F 71 20 106/68 99 06/21/17 10:00 06/21/17 10:00 06/21/17 10:00 06/21/17 10:00 06/20/17 20:17 Active Medications Albuterol/Ipratropium (Duoneb -) 1 amp NEB Q6HPO [facility] Last Admin: 06/21/17 11:57 Dose: 1 amp Enoxaparin Sodium (Lovenox -) 30 mg SQ DAILY [facility] Last Admin: 06/21/17 10:31 Dose: 30 mg Sodium Chloride (Normal Saline -) 1,000 mls @ 100 mls/hr IV ASDIR [facility] Last Admin: 06/20/17 22:57 Dose: 100 mls/hr Piperacillin Sod/Tazobactam (Sod 3.375 gm/ Dextrose) 100 mls @ 100 mls/hr IVPB Q8H-IV CECILIA PRN Reason: Protocol Last Admin: 06/21/17 11:03 Dose: 100 mls/hr Lactulose (Cephulac (Oral Use)) 20 gm PO BID [facility] Last Admin: 06/21/17 10:31 Dose: 20 gm Magnesium Oxide (Mag-Ox -) 400 mg PO BID [facility] Last Admin: 06/21/17 10:31 Dose: 400 mg Nadolol (Corgard -) 20 mg PO HS [facility] Last Admin: 06/20/17 22:58 Dose: 20 mg Pantoprazole Sodium (Protonix -) 20 mg PO DAILY [facility] Last Admin: 06/21/17 10:31 Dose: 20 mg Spironolactone (Aldactone -) 50 mg PO DAILY [facility] Last Admin: 06/21/17 10:31 Dose: 50 mg Tiotropium [place] (Spiriva -) 1 puff IH DAILY [facility] Constitutional: Yes: Agitated, awake and alert Eyes: Yes: EOM Intact HENT: Yes: Normocephalic Neck: Yes: Trachea Midline Cardiovascular: Yes: Regular Rate and Rhythm, S1, S2 Respiratory: Yes: Diminished, (+) BS. No: Rales, Wheezes Gastrointestinal: Yes: Soft, Ascites Renal/: Yes: WNL Edema: No Labs: CBC, BMP Problem List - Problems (1) COPD exacerbation Code(s): J44.1 - CHRONIC OBSTRUCTIVE PULMONARY DISEASE W (ACUTE) EXACERBATION (2) Pneumonia Code(s): J18.9 - PNEUMONIA, UNSPECIFIED ORGANISM Qualifiers: Pneumonia type: due to unspecified organism Laterality: left Lung location: upper lobe of lung Qualified Code(s): J18.1 - Lobar pneumonia, unspecified organism (3) Cirrhosis Code(s): K74.60 - UNSPECIFIED CIRRHOSIS OF LIVER (4) DVT prophylaxis Code(s): [id number] - (5) Leukopenia Code(s): D72.819 - DECREASED WHITE BLOOD CELL COUNT, UNSPECIFIED Assessment/Plan Etoh induced cirrhosis with portyal vein thrombosis on lovenox sudden shaking chills/sob/weakness noted lactic acid elevation/LUX infiltrate COPD ABX Follow cultures Lovenox Bronchodilators as needed Abdominal pain workup Dr Cronin
--- NOTE | 2017-06-21 13:10 | CONSULT ---
Consult Consult Specialty:: Hematology - History of Present Illness History of Present Illness: Patient is a 56 year old female with a significant past medical history of COPD , hepatic cirrhosis, alcohol abuse (last drink 10 years ago), portal vein thrombosis (on home lovenox) was admitted for possible PNA. Her Past HX: Reviewed paper report with : Pts care at 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 Cirrhosis: chronic , alcohol induced , not on transplant list as she was diagnosed to have Hepato-Pulm ( pt also an ACTIVE smoker), HE and her MELD is around 10-12. She is on HCC surveillance, as per last MRI abd was last year and also had an EGD last year. She has an appt coming up with Hepatology in Jun 2017. Now here, Hematology was consulted for the stated hx of PVT. 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 No: O2 Dependent Gastrointestinal: Yes: Ascites, Esophageal Varices, Other (ETOH INDUCED CIRRHOSIS PORTAL VEIN THROMBOSIS) Hepatobiliary: Yes: Cirrhosis, Cholelithiasis Renal/: No: Renal Failure ...LMP Comment: post menopausal ...: No Infectious Disease: Yes: Other (HEP -). No: AIDS - Alcohol/Substance Use Hx Alcohol Use: No - Smoking History Smoking history: Current every day smoker Have you smoked in the past 12 months: Yes Aproximately how many cigarettes per day: 2 - Social History Usual Living Arrangement: Other (FAMILY) ADL: Family Assistance History of Recent Travel: No Home Medications - Allergies Allergies/Adverse Reactions: Allergies Allergy/AdvReac Type Severity Reaction Status Date / Time No Known Allergies Allergy Verified 06/20/17 08:58 - Home Medications Home Medications: Ambulatory Orders Enoxaparin Sodium [Lovenox] 30 mg SQ DAILY 12/19/14 Furosemide [Lasix -] 40 mg PO DAILY 12/19/14 Lactulose 20 gm PO BID 12/19/14 Magnesium Oxide [Mag-Ox -] 400 mg PO BID 12/19/14 Nadolol 20 mg PO HS 12/19/14 Spironolactone 50 mg PO DAILY 12/19/14 Tiotropium [place] [Spiriva] 1 inh PO DAILY 12/19/14 Omeprazole Magnesium [Prilosec Otc] 20 mg PO DAILY 06/20/17 Review of Systems - Review of Systems Constitutional: reports: Chills, Fever, Loss of Appetite Gastrointestinal: reports: Bloating Neurological: reports: No Symptoms Physical Exam Vital Signs: Vital Signs Temperature 98 F 06/21/17 10:00 Pulse Rate 71 06/21/17 10:00 Respiratory Rate 20 06/21/17 10:00 Blood Pressure 106/68 06/21/17 10:00 O2 Sat by Pulse Oximetry (%) 99 06/20/17 20:17 Constitutional: Yes: Mild Distress, Thin HENT: Yes: Atraumatic, Normocephalic Neck: Yes: Supple Cardiovascular: Yes: Regular Rate and Rhythm Respiratory: Yes: Regular, CTA Bilaterally Gastrointestinal: Yes: Distention Edema: No Labs: CBC, BMP 06/21/17 05:05 06/21/17 05:05 Imaging - Results Cat Scan: Report Reviewed Problem List - Problems (1) Otitis media Code(s): H66.90 - OTITIS MEDIA, UNSPECIFIED, UNSPECIFIED EAR (2) Portal vein thrombosis Code(s): I81 - PORTAL VEIN THROMBOSIS (3) Thrombocytopenia Code(s): D69.6 - THROMBOCYTOPENIA, UNSPECIFIED (4) Splenomegaly Code(s): R16.1 - SPLENOMEGALY, NOT ELSEWHERE CLASSIFIED Assessment/Plan PVT well established pt with and been on lovenox at the same dosage for years, the CT scan here is reviewed, unknown extension of the chronic PVT. As pt has varices/cirrhosis/thrombocytopenia and remains at risk for bleeding, will not alter the dosing of the Lovenox at least for now. Thrombocytopenia likely from cirrhosis/splenomegaly will continue to monitor closely, dyana in the setting of acute illness may fluctuate. for coags Cirrhosis alcohol induced need to monitor AFP wnl may need MR liver either IP/OP monitor for ascites follows with dr.David Sierra at [facility] PNA: flu negative abx per ID d/w primary
[2017-06-21] MEDS: TIOTROPIUM BROMIDE 18 MCG/INH (DEVICE W/ 5 CAPSULES) IH SCH (14:01)
[2017-06-21] MEDS ORDERED: ACETAMINOPHEN 325 MG TABLET (FP) PO PRN (14:15)
--- NOTE | 2017-06-21 15:18 | CON.GI ---
Consult Consult Specialty:: Gastroenterology ( covering Dr. Jarrett) Referred by:: Dr Arroyo Reason for Consultation:: Cirrhosis - History of Present Illness Chief Complaint: Chills. History of Present Illness: 56F with alcoholic cirrhosis developed chills yesterday morning. She also describes dyspnea and cyanotic lips. She also had a diffuse abdominal ache agravted by lactulose that is causing her to have postprandial nausea and diarrhea. Her cirrhosis is related to alcohol which she gave up 190 years ago. She is followed by Dr Zach Sierar for the cirrhosis and by Dr Jude Segura for portal vein thrombosis at [facility]. She has had EGDs and colonoscopies with Dr. Zach Sierra but never required variceal banding. She has required paracenteses for ascites in the past. She denies having had colon polyps removed. Her CT reveals ascites, paraesophageal and gastric varices, splenomegaly, portal vein thromboses and a cirrhotic liver and prominent pancreatic head as well as thickened gastric, enteric and colonic andrews. Her weight has been steady and her appetite good. NO bleeding. Her abdomen has been distending since she was started on IV fluids. 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 No: O2 Dependent Gastrointestinal: Yes: Ascites, Esophageal Varices, Other (ETOH INDUCED CIRRHOSIS PORTAL VEIN THROMBOSIS) Hepatobiliary: Yes: Cirrhosis (alcoholic with encephalopathy, ascites, portal vein thrombosis and varices ), Cholelithiasis Renal/: No: Renal Failure ...LMP Comment: post menopausal ...: No Heme/Onc: Yes: Anemia, Thrombocytopenia Infectious Disease: Yes: Other - Past Surgical History Past Surgical History: Yes: Cataract Removal (bilateral), Colonoscopy, , Tonsillectomy, Upper Endoscopy Additional Surgical History: Right myringotomy - Alcohol/Substance Use Hx Alcohol Use: Yes (quit 10 years ago) History of Substance Use: reports: Marijuana - Smoking History Smoking history: Current every day smoker Have you smoked in the past 12 months: Yes Aproximately how many cigarettes per day: 2 - Social History Usual Living Arrangement: With Spouse (FAMILY) ADL: Family Assistance Place of : Other ([place] Came to [place] (year[place] age 3 History of Recent Travel: No Home Medications - Allergies Allergies/Adverse Reactions: Allergies Allergy/AdvReac Type Severity Reaction Status Date / Time No Known Allergies Allergy Verified 06/20/17 08:58 - Home Medications Home Medications: Ambulatory Orders Enoxaparin Sodium [Lovenox] 30 mg SQ DAILY 12/19/14 Furosemide [Lasix -] 40 mg PO DAILY 12/19/14 Lactulose 20 gm PO BID 12/19/14 Magnesium Oxide [Mag-Ox -] 400 mg PO BID 12/19/14 Nadolol 20 mg PO HS 12/19/14 Spironolactone 50 mg PO DAILY 12/19/14 Tiotropium [place] [Spiriva] 1 inh PO DAILY 12/19/14 Omeprazole Magnesium [Prilosec Otc] 20 mg PO DAILY 06/20/17 Family Disease History - Family Disease History Family Disease History: CA: Father (unknown type age 70), Mother ( of cervical cancer), Sister (battling cervical cancer) Review of Systems - Review of Systems Constitutional: reports: Chills, Fever, Loss of Appetite, Weakness Eyes: reports: No Symptoms Neck: reports: No Symptoms Cardiovascular: reports: Shortness of Breath Respiratory: reports: SOB Gastrointestinal: reports: Abdominal Pain, Bloating, Diarrhea (on lactulose), Nausea Genitourinary: reports: No Symptoms Hematology/Lymphatic: reports: Easily Bruised Physical Exam-GI Vital Signs: Vital Signs Temperature 98 F 06/21/17 10:00 Pulse Rate 71 06/21/17 10:00 Respiratory Rate 20 06/21/17 10:00 Blood Pressure 106/68 06/21/17 10:00 O2 Sat by Pulse Oximetry (%) 99 06/20/17 20:17 CBC,CMP WBC 4.1 K/mm3 (4.0-10.0) D 06/21/17 05:05 RBC 3.80 M/mm3 (3.60-5.2) 06/21/17 05:05 Hgb 12.0 GM/dL (10.7-15.3) 06/21/17 05:05 Hct 37.2 % (32.4-45.2) 06/21/17 05:05 MCV 97.7 fl (80-96) H 06/21/17 05:05 MCH 31.6 pg (25.7-33.7) 06/21/17 05:05 MCHC 32.4 g/dl (32.0-36.0) 06/21/17 05:05 RDW 15.9 % (11.6-15.6) H 06/21/17 05:05 Plt Count 49 K/MM3 (134-434) L 06/21/17 05:05 MPV 10.4 fl (7.5-11.1) D 06/21/17 05:05 Neutrophils % 78.1 % (42.8-82.8) D 06/20/17 09:00 Lymphocytes % 13.1 % (8-40) D 06/20/17 09:00 Monocytes % 6.7 % (3.8-10.2) 06/20/17 09:00 Eosinophils % 1.4 % (0-4.5) 06/20/17 09:00 Basophils % 0.7 % (0-2.0) 06/20/17 09:00 Sodium 145 mmol/L (136-145) 06/21/17 05:05 Potassium 3.4 mmol/L (3.5-5.1) L 06/21/17 05:05 Chloride 116 mmol/L (98-107) H 06/21/17 05:05 Carbon Dioxide 16 mmol/L (21-32) L 06/21/17 05:05 Anion Gap 13 (8-16) 06/21/17 05:05 BUN 7 mg/dL (7-18) 06/21/17 05:05 Creatinine 0.5 mg/dL (0.55-1.02) L 06/21/17 05:05 Creat Clearance w eGFR > 60 (>60) 06/21/17 05:05 Random Glucose 79 mg/dL (74-106) 06/21/17 05:05 Lactic Acid 1.4 mmol/L (0.4-2.0) 06/20/17 12:00 Calcium 8.0 mg/dL (8.5-10.1) L 06/21/17 05:05 Magnesium 2.3 mg/dL (1.8-2.4) D 06/21/17 05:05 Total Bilirubin 1.3 mg/dL (0.2-1.0) H 06/21/17 05:05 AST 39 U/L (15-37) H 06/21/17 05:05 ALT 21 U/L (12-78) 12/30/17 05:05 Alkaline Phosphatase 112 U/L (45-117) 06/21/17 05:05 Ammonia 33.37 umol/L (11-32) H 06/20/17 09:05 Creatine Kinase 140 IU/L (26-192) 06/20/17 09:00 Troponin I < 0.02 ng/ml (0.00-0.05) 06/20/17 09:00 Total Protein 5.8 g/dl (6.4-8.2) L 06/21/17 05:05 Albumin 2.7 g/dl (3.4-5.0) L 06/21/17 05:05 TSH 5.35 uIU/ml (0.358-3.74) H 06/20/17 09:00 Free T4 1.22 ng/dl (0.76-1.46) 06/20/17 09:00 Current Medications Generic Name Dose Route Start Last Admin Trade Name Freq PRN Reason Stop Dose Admin Acetaminophen 650 mg 06/21/17 14:15 Tylenol - PO Q6H PRN FEVER OR PAIN Albuterol/Ipratropium 1 amp 06/20/17 19:15 06/21/17 11:57 Duoneb - NEB 1 amp Q6HPO CECILIA Administration Enoxaparin Sodium 30 mg 06/21/17 10:00 06/21/17 10:31 Lovenox - SQ 30 mg DAILY CECILIA Administration Sodium Chloride 1,000 mls @ 100 mls/hr 06/20/17 17:39 06/20/17 22:57 Normal Saline - IV 100 mls/hr ASDIR CECILIA Administration Piperacillin Sod/Tazobactam 100 mls @ 100 mls/hr 06/21/17 03:00 06/21/17 11: 03 Sod 3.375 gm/ Dextrose IVPB 100 mls/hr Q8H-IV CECILIA Administration Protocol Lactulose 20 gm 06/20/17 22:00 06/21/17 10:31 Cephulac (Oral Use) PO 20 gm BID CECILIA Administration Magnesium Oxide 400 mg 06/20/17 22:00 06/21/17 10:31 Mag-Ox - PO 400 mg BID CECILIA Administration Nadolol 20 mg 06/20/17 22:00 06/20/17 22:58 Corgard - PO 20 mg HS CECILIA Administration Pantoprazole Sodium 20 mg 06/21/17 10:00 06/21/17 10:31 Protonix - PO 20 mg DAILY CECILIA Administration Spironolactone 50 mg 06/21/17 10:00 06/21/17 10:31 Aldactone - PO 50 mg DAILY CECILIA Administration Tiotropium [place] 1 puff 06/21/17 10:00 06/21/17 14:01 Spiriva - IH 1 inhaler DAILY CECILIA Administration Constitutional: Yes: Anxious, Thin Eyes: Yes: Conjunctiva Clear HENT: Yes: Atraumatic Neck: Yes: Supple Cardiovascular: Yes: Regular Rate and Rhythm Respiratory: Yes: Rhonchi (scattered bilaterally), Other (chest spider angiomas) Gastrointestinal Inspection: Yes: Distention, Scars (healed vertical suprapubic incision) ...Auscultate: Yes: Normoactive Bowel Sounds ...Palpate: Yes: Soft, Other (nontender) ...Percussion: Yes: Tympanitic ...Rectal Exam: Yes: Guaiac Negative (loose yellow/brown stool), Sphincter Tone Normal Edema: No Peripheral Pulses WNL: Yes Neurological: Yes: Alert, Oriented, Babinski negative Labs: CBC, BMP 06/21/17 05:05 06/21/17 05:05 INR, PTT INR 1.40 (0.82-1.09) H 06/20/17 09:00 Laboratory Tests 06/20/17 06/20/17 06/20/17 09:00 09:00 09:05 Lactic Acid 6.5 H* Total Bilirubin 1.6 H AST 34 ALT 23 Alkaline Phosphatase 131 H Ammonia 33.37 H 06/20/17 06/21/17 12:00 05:05 Lactic Acid 1.4 Total Bilirubin 1.3 H AST 39 H ALT 21 Alkaline Phosphatase 112 Ammonia Imaging - Results Cat Scan: Report Reviewed ( Final Report CT ABDOMEN & PELVIS CT WITH CONTR Show Printer-Friendly Version with Image (1 of 1) Show Printer-Friendly Version without images Patient Name: Mona Che : 1960 ID: [id number] Study Date: 20-Jun-2017 14:25 [facility] Name: MONA CHE DEPARTMENT OF RADIOLOGY Phys: Gurwinder Viramontes RESIDENT : 1960 Age: 56 Sex: F [facility] Acct: [id number] Loc: [facility] Exam Date: 06/20/17 Status: [place] [address] Unit Number: [id number] EXAM#: TYPE/EXAM: RESULT: [id number] CT/ABDOMEN PELVIS CT WITH CONTR Exam: CT abdomen and pelvis with IV contrast. INDICATION: Right lower quadrant tenderness. TECHNIQUE: Contiguous axial CT images of the abdomen and pelvis were obtained with oral contrast, following the intravenous administration of 80 mL of Omnipaque 350 contrast. Coronal and sagittal reconstructions obtained. COMPARISON: CT abdomen/pelvis. FINDINGS: There is subsegmental dependent atelectasis in both lung bases. The heart is not enlarged. There is a cirrhotic configuration of the liver. There is cholelithiasis and gallbladder wall thickening. The common bile duct is not definitively dilated. There is heterogeneous enhancement of the pancreatic head. The pancreas is otherwise unremarkable. There is at least moderate splenomegaly. There is thrombosis of the portal vein and partial thrombosis in the SMV at its confluence with the splenic vein. There is no mass in the adrenal glands. Normal size kidneys with symmetric enhancement. There is no hydronephrosis. There are left splenorenal venous collaterals. Normal caliber abdominal aorta with mild calcific atherosclerosis. There is diffuse colonic wall thickening, most prominent from the cecum through the splenic flexure. There is also gastric wall thickening and wall thickening multiple small bowel loops. The appendix is fluid-filled and dilated, measuring up to 11 mm in diameter. There is a small hiatal hernia. There are paraesophageal and gastric varices. There are no dilated loops of large or small bowel to suggest obstruction. There is no free intraperitoneal air. There is a moderate volume of free fluid in the abdomen and pelvis with no drainable collection. Urinary bladder is moderately well distended, otherwise unremarkable. The uterus unremarkable. No acute fracture in the visualized osseous structures. IMPRESSION: 1. Cirrhotic configuration of the liver and portal vein thrombosis as described above, with heterogeneous enhancement of the hepatic parenchyma. Underlying hepatic malignancy cannot be excluded. Portal vein thrombus may be bland or tumor thrombus. Please correlate clinically , with serum AFP and multiphase contrast-enhanced MRI or CT of the liver. 2. Heterogeneous enhancement of the pancreatic head is nonspecific, but may be attributed to pancreatitis. Please correlate clinically with pancreatic enzymes. 3. Cholelithiasis with gallbladder wall thickening. No CT evidence of acute cholecystitis. Gallbladder wall thickening is nonspecific with a broad differential including cirrhosis, adjacent inflammatory processes as well as chronic cholecystitis. 4. Gastric wall thickening, extensive wall thickening throughout the colon and wall thickening in multiple small bowel loops is presumably secondary to portal enteropathy. Secondary dilated and fluid-filled appendix. A superimposed infectious or inflammatory enterocolitis/ gastritis cannot be excluded radiologically, requiring clinical correlation. 5. Moderate abdominopelvic ascites. Moderate splenomegaly. Paraesophageal and gastric varices. Reported By: Tucker Perez DO 06/20/17 1507 Technologist: Chi Macias Transcribed Date/Time: 06/20/17 1507 Vice President Quality Assurance: Tucker Perez DO Printed Date/Time: By: Signed by : Tucker Perez Signed on: 20-Jun-2017 15:08) Assessment/Plan Alcoholic cirrhosis complicated by ascites, hepatic encephalopathy, coagulopathy , portal vein thrombosis and esophageal and gastric varices. The ascites is increasing with IV fluid which I will stop. I will adjust her lactulose to the regimen that she is accustomed to so that she can eat better. I believe that her abdominal pain reflect spontaneous bacterial peritonitis superinfection perhaps from her pneumonia with bacteremia which also accounts for her lactic acidosis. She is at risk for hepatorenal syndrome so I will order only a diagnostic paracentesis. The current antibiotics will cover this. I will order an AFP and Ca 19.9 given her pancreatic and hepatic CT abnormalities. I agree that her bowel wall thickening reflects portal hypertension aggravated by her portal vein thrombosis but will screen her stool for WBCs. Dr Jarrett will return on 06/24/17.
--- NOTE | 2017-06-21 15:33 | CON.ID ---
Consult Consult Specialty:: infectious diseases Reason for Consultation:: fever,sepsis - History of Present Illness Chief Complaint: fever,weakness History of Present Illness: Patient is a 56 year old female with a significant past medical history of COPD , hepatic cirrhosis, alcohol abuse (last drink 10 years ago), portal vein thrombosis (on home lovenox) was admitted with the thought process of pna asking the patient the patient mentions that she developed fever suddenly and felt very weak she though she had hig grade fever she currently feels better of notice is that her wbc is very low currently she looks sick - History Source History Provided By: Patient Limitations to Obtaining History: No Limitations - 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 No: O2 Dependent Gastrointestinal: Yes: Ascites, Esophageal Varices, Other (ETOH INDUCED CIRRHOSIS PORTAL VEIN THROMBOSIS) Hepatobiliary: Yes: Cirrhosis (alcoholic with encephalopathy, ascites, portal vein thrombosis and varices ), Cholelithiasis Renal/: No: Renal Failure ...LMP Comment: post menopausal ...: No Infectious Disease: Yes: Other - Past Surgical History Past Surgical History: Yes: Cataract Removal (bilateral), Colonoscopy, , Tonsillectomy, Upper Endoscopy Additional Surgical History: Right myringotomy - Alcohol/Substance Use Hx Alcohol Use: Yes (quit 10 years ago) History of Substance Use: reports: Marijuana - Smoking History Smoking history: Current every day smoker Have you smoked in the past 12 months: Yes Aproximately how many cigarettes per day: 2 - Social History Usual Living Arrangement: With Spouse (FAMILY) ADL: Family Assistance History of Recent Travel: No Home Medications - Allergies Allergies/Adverse Reactions: Allergies Allergy/AdvReac Type Severity Reaction Status Date / Time No Known Allergies Allergy Verified 06/20/17 08:58 - Home Medications Home Medications: Ambulatory Orders Enoxaparin Sodium [Lovenox] 30 mg SQ DAILY 12/19/14 Furosemide [Lasix -] 40 mg PO DAILY 12/19/14 Lactulose 20 gm PO BID 12/19/14 Magnesium Oxide [Mag-Ox -] 400 mg PO BID 12/19/14 Nadolol 20 mg PO HS 12/19/14 Spironolactone 50 mg PO DAILY 12/19/14 Tiotropium [place] [Spiriva] 1 inh PO DAILY 12/19/14 Omeprazole Magnesium [Prilosec Otc] 20 mg PO DAILY 06/20/17 Family Disease History - Family Disease History Family Disease History: CA: Father (unknown type age 70), Mother ( of cervical cancer), Sister (battling cervical cancer) Review of Systems - Review of Systems Constitutional: reports: Fever Eyes: reports: No Symptoms HENT: reports: No Symptoms Neck: reports: No Symptoms Cardiovascular: reports: No Symptoms Respiratory: reports: No Symptoms Gastrointestinal: reports: Other Musculoskeletal: reports: No Symptoms Integumentary: reports: No Symptoms Neurological: reports: No Symptoms Endocrine: reports: No Symptoms Hematology/Lymphatic: reports: No Symptoms Psychiatric: reports: No Symptoms Physical Exam Vital Signs: Vital Signs Temperature 98 F 06/21/17 10:00 Pulse Rate 71 06/21/17 10:00 Respiratory Rate 20 06/21/17 10:00 Blood Pressure 106/68 06/21/17 10:00 O2 Sat by Pulse Oximetry (%) 99 06/20/17 20:17 Constitutional: Yes: Calm, Mild Distress Eyes: Yes: Conjunctiva Clear HENT: Yes: Atraumatic, Normocephalic Neck: Yes: Supple, Trachea Midline Cardiovascular: Yes: Regular Rate and Rhythm Respiratory: Yes: Regular, Poor Air Entry (bases) Gastrointestinal: Yes: Soft, Hypoactive Bowel Sounds, Tenderness (in both lower quadrants some guarding also noted) Musculoskeletal: Yes: WNL Extremities: Yes: WNL Neurological: Yes: Alert, Oriented Psychiatric: Yes: Alert, Oriented Labs: CBC, BMP 06/21/17 05:05 06/21/17 05:05 Imaging - Results Chest X-ray: Report Reviewed, Image Reviewed Assessment/Plan COPD, hepatic cirrhosis, alcohol abuse fever looking at the patient i think the pathology is coming from her abdomen plan will start patient on zosyn please get a ct scan of the abdomen close watch on wbc hydration rest as per priamry team
--- NOTE | 2017-06-21 15:38 | PN ---
Progress Note, Physician History of Present Illness: continues to c/o of [facility] pain room too cold upset - Current Medication List Current Medications: Active Medications Acetaminophen (Tylenol -) 650 mg PO Q6H PRN PRN Reason: FEVER OR PAIN Albuterol/Ipratropium (Duoneb -) 1 amp NEB Q6HPO [facility] Last Admin: 06/21/17 11:57 Dose: 1 amp Enoxaparin Sodium (Lovenox -) 30 mg SQ DAILY [facility] Last Admin: 06/21/17 10:31 Dose: 30 mg Sodium Chloride (Normal Saline -) 1,000 mls @ 100 mls/hr IV ASDIR [facility] Last Admin: 06/20/17 22:57 Dose: 100 mls/hr Piperacillin Sod/Tazobactam (Sod 3.375 gm/ Dextrose) 100 mls @ 100 mls/hr IVPB Q8H-IV CECILIA PRN Reason: Protocol Last Admin: 06/21/17 11:03 Dose: 100 mls/hr Lactulose (Cephulac (Oral Use)) 20 gm PO BID [facility] Last Admin: 06/21/17 10:31 Dose: 20 gm Magnesium Oxide (Mag-Ox -) 400 mg PO BID [facility] Last Admin: 06/21/17 10:31 Dose: 400 mg Nadolol (Corgard -) 20 mg PO HS [facility] Last Admin: 06/20/17 22:58 Dose: 20 mg Pantoprazole Sodium (Protonix -) 20 mg PO DAILY [facility] Last Admin: 06/21/17 10:31 Dose: 20 mg Spironolactone (Aldactone -) 50 mg PO DAILY [facility] Last Admin: 06/21/17 10:31 Dose: 50 mg Tiotropium [place] (Spiriva -) 1 puff IH DAILY [facility] Last Admin: 06/21/17 14:01 Dose: 1 inhaler - Objective Vital Signs: Vital Signs Temperature 98 F 06/21/17 10:00 Pulse Rate 71 06/21/17 10:00 Respiratory Rate 20 06/21/17 10:00 Blood Pressure 106/68 06/21/17 10:00 O2 Sat by Pulse Oximetry (%) 99 06/20/17 20:17 Constitutional: Yes: No Distress, Calm Neck: Yes: Supple, Trachea Midline Cardiovascular: Yes: Regular Rate and Rhythm Gastrointestinal: Yes: Normal Bowel Sounds, Soft, Ascites Musculoskeletal: Yes: WNL Extremities: Yes: WNL Neurological: Yes: Alert, Oriented Psychiatric: Yes: Alert, Oriented Labs: CBC, BMP 06/21/17 05:05 06/21/17 05:05 INR, PTT INR 1.40 (0.82-1.09) H 06/20/17 09:00 Assessment/Plan Problem List - Problems (1) COPD exacerbation Code(s): J44.1 - CHRONIC OBSTRUCTIVE PULMONARY DISEASE W (ACUTE) EXACERBATION (2) Pneumonia Code(s): J18.9 - PNEUMONIA, UNSPECIFIED ORGANISM Qualifiers: Pneumonia type: due to unspecified organism Laterality: left Lung location: upper lobe of lung Qualified Code(s): J18.1 - Lobar pneumonia, unspecified organism (3) Cirrhosis Code(s): K74.60 - UNSPECIFIED CIRRHOSIS OF LIVER (4) DVT prophylaxis Code(s): DOM9294 - (5) Leukopenia Code(s): D72.819 - DECREASED WHITE BLOOD CELL COUNT, UNSPECIFIED abd pain improving gi following plan conitnue current mgmt continue abx plan as per gi might consider working for abd pathology
--- NOTE | 2017-06-21 15:58 | PN ---
Physical Exam: SUBJECTIVE: Patient seen and examined OBJECTIVE: Vital Signs Period Temp Pulse Resp BP Sys/Davis Pulse Ox Last 24 Hr 97.3 F-99 F 60-81 18-22 84-106/43-68 99-99 GENERAL: Awake, alert, and fully oriented, in no acute distresss, frail, thin, disheveled HEAD: Normal with no signs of trauma. EYES: Pupils equal, round and reactive to light, extraocular movements intact, sclera anicteric, conjunctiva clear. No lid lag. EARS, NOSE, THROAT: Ears normal, nares patent, oropharynx clear without exudates. Moist mucous membranes. NECK: Normal range of motion, supple without lymphadenopathy, JVD, or masses. LUNGS: Breath sounds equal, clear to auscultation bilaterally. No wheezes, and no crackles. No accessory muscle use. HEART: Regular rate and rhythm, normal S1 and S2 without murmur, rub or gallop. ABDOMEN: Soft, nontender, not distended, normoactive bowel sounds, no guarding, no rebound, no masses. No hepatomegaly or splenomegaly. MUSCULOSKELETAL: Normal range of motion at all joints. No bony deformities or tenderness. No CVA tenderness. UPPER EXTREMITIES: 2+ pulses, warm, well-perfused. No cyanosis. No clubbing. No peripheral edema. LOWER EXTREMITIES: 2+ pulses, warm, well-perfused. No calf tenderness. No peripheral edema. NEUROLOGICAL: Cranial nerves II-XII intact. Normal speech. Normal gait. PSYCHIATRIC: Cooperative. Good eye contact. Appropriate mood and affect. SKIN: Warm, dry, normal turgor, no rashes or lesions noted, normal capillary refill. Laboratory Results - last 24 hr 06/21/17 06/21/17 05:05 05:05 WBC 4.1 D RBC 3.80 Hgb 12.0 Hct 37.2 MCV 97.7 H MCH 31.6 MCHC 32.4 RDW 15.9 H Plt Count 49 L MPV 10.4 D Sodium 145 Potassium 3.4 L Chloride 116 H Carbon Dioxide 16 L Anion Gap 13 BUN 7 Creatinine 0.5 L Creat Clearance w eGFR > 60 Random Glucose 79 Calcium 8.0 L Magnesium 2.3 D Total Bilirubin 1.3 H AST 39 H ALT 21 Alkaline Phosphatase 112 Total Protein 5.8 L Albumin 2.7 L Active Medications Generic Name Dose Route Start Last Admin Trade Name Freq PRN Reason Stop Dose Admin Acetaminophen 650 mg 06/21/17 14:15 Tylenol - PO Q6H PRN FEVER OR PAIN Albuterol/Ipratropium 1 amp 06/20/17 19:15 06/21/17 11:57 Duoneb - NEB 1 amp Q6HPO CECILIA Administration Enoxaparin Sodium 30 mg 06/21/17 10:00 06/21/17 10:31 Lovenox - SQ 30 mg DAILY CECILIA Administration Piperacillin Sod/Tazobactam 100 mls @ 100 mls/hr 06/21/17 03:00 06/21/17 11: 03 Sod 3.375 gm/ Dextrose IVPB 100 mls/hr Q8H-IV CECILIA Administration Protocol Lactulose 20 gm 06/22/17 10:00 Cephulac (Oral Use) PO DAILY CECILIA Magnesium Oxide 400 mg 06/20/17 22:00 06/21/17 10:31 Mag-Ox - PO 400 mg BID CECILIA Administration Nadolol 20 mg 06/20/17 22:00 06/20/17 22:58 Corgard - PO 20 mg HS CECILIA Administration Pantoprazole Sodium 20 mg 06/21/17 10:00 06/21/17 10:31 Protonix - PO 20 mg DAILY CECILIA Administration Spironolactone 50 mg 06/21/17 10:00 06/21/17 10:31 Aldactone - PO 50 mg DAILY CECILIA Administration Tiotropium [place] 1 puff 06/21/17 10:00 06/21/17 14:01 Spiriva - IH 1 inhaler DAILY CECILIA Administration ASSESSMENT/PLAN: Patient is a 56 year old female with a significant past medical history of COPD , hepatic cirrhosis, alcohol abuse (last drink 10 years ago), portal vein thrombosis (on home lovenox). She presented to the ED today with subjective fevers, chills, rigors, palpitations, and full body pains and aches. She also states that she had shortness of breath at home and one episode of vomiting ( non bili, non bloody as per pt). She reported feeling faint at home and felt as though she was going to pass out. Patient reported that patient became hypoxic at home and her lips turned blue. She denies any chest pain, diaphoresis, urinary urgency or frequency. She denies any recent travel or any sick contacts. She reports compliance with all her home medications. Imaging: Chest xray: interstitial opacities in the LUX with infiltrates CT/Abd/Pelvis CT w/contrast 06/20/2017: with following findings: cirrhotic configuation of the liver and portal vein thrombosis with heterogenous enhancement of the hepatic parencyma. Underlying hepatic malignancy cannot be excluded. Portal vein thrombosis may be tumor thrombus. No evidence of acute cholecystitis. Gastric wall thickening, extensive wall thickening through the colon and wall thickening in multiple small bowel loops. Moderate abdominopelvic ascites. Pulmonary: Sepsis secondary to Pneumonia, acute Hypotensive with lactic acidosis in ED, noted to also have leukopenia Lactic acidosis 6.5>1.4 Hypotensive improved with IVF, pt systolic BP in 100s on previous admission On Zosyn as per ID On Supplemental oxygen Monitor respiratory status closely Pulmonary following ID following COPD with acute bronchitis Duonebs scheduled Supplemental oxygen GI: Hepatic cirrhosis, chronic On Lactulose 20gm BID Moderate abdominopelvic ascites seen on Ct diagnostic paracentesis as per GI GI consult Hematology: Thrombocytopenia @ 49, leukopenia 2.3 Thrombocytopenia may be due to sepsis CBC in a.m. to continue to trend Bleeding risk Portal vein Thrombosis: Subtherapeutic Lovenox 30mg home dose, pt reports pt is followed by Dr. Segura, hematology and she has been on this Lovenox dose for over 6 years Hematology consulted Patient is a bleeding risk, comes in with low platelets, defer to heme for Lovenox adjustment, if any As per CT scan of abd. pelvis, underlying hepatic malignancy cannot be excluded Hepatic malignancy as per oncology/hematology F.E.N. Fluids: NS @ 100cc/hr Electrolytes: hypomag repleted Nutrition: low sodium DVT: Lovenox 30mg home dose GI: Protonix Disposition: full code. Visit type - Emergency Visit Emergency Visit: Yes ED Registration Date: 06/20/17 Care time: The patient presented to the Emergency Department on the above date and was hospitalized for further evaluation of their emergent condition. - New Patient This patient is new to me today: No - Critical Care Critical Care patient: No - Discharge Referral Referred to [facility] Med P.C.: No
[2017-06-21] MEDS ORDERED: IBUPROFEN 600 MG TABLET (FP) PO ONE (22:34)
[2017-06-21] MEDS: NADOLOL 20 MG TABLET (FP) PO SCH (22:57)
[2017-06-22] MEDS ORDERED: PT OWN MED DRAWER 7, Y5N ONE ×4 (02:48→18:29)
[2017-06-22] MEDS: PIPERACILLIN/TAZOB 3.375 GM 3.375 GM in DEXTROSE 5%-WATER - 100 ML IVPB SCH ×3 (03:06→17:06)
[2017-06-22] MEDS: ALBUTEROL SO4 2.5/IPRATROPIUM 0.5 INH SOL 3 ML VIAL.NEB. NEB SCH ×4 (05:35→23:05)
[2017-06-22 06:45] LABS: BASO % 0.3 % (0-2.0); EOS % 1.4 % (0-4.5); HEMOGLOBIN 12.4 GM/dL (10.7-15.3); LYMPH % 11.7 % (8-40); MCH 32.7 pg (25.7-33.7); MCHC 33.6 g/dl (32.0-36.0); MEAN CELL VOLUME 97.2 fl (80-96); MEAN PLT VOLUME 10.8 fl (7.5-11.1); MONO % 9.2 % (3.8-10.2); NEUT % 77.4 % (42.8-82.8); PLATELET COUNT 73 K/MM3 (134-434); RBC 3.81 M/mm3 (3.60-5.2); RDW 16.6 % (11.6-15.6)
[2017-06-22 06:52] LABS: INR 1.52 (0.82-1.09); PROTHROMBIN TIME (PATIENT) 17.2 SEC (9.98-11.88)
[2017-06-22 06:55] LABS: ACTIVATED PTT 37.4 SECONDS (26.9-34.4)
[2017-06-22 07:03] LABS: CHLORIDE 115 mmol/L (98-107); POTASSIUM 3.5 mmol/L (3.5-5.1); SODIUM 143 mmol/L (136-145)
[2017-06-22 07:12] LABS: ALBUMIN 2.4 g/dl (3.4-5.0); ALK PHOS 97 U/L (45-117); AMYLASE 59 U/L (25-115); ANION GAP 12 (8-16); BILIRUBIN,TOTAL 1.8 mg/dL (0.2-1.0); BLOOD UREA NITROGEN 9 mg/dL (7-18); CALCIUM 7.4 mg/dL (8.5-10.1); CO2 16 mmol/L (21-32); CREATININE 0.6 mg/dL (0.55-1.02); GLUCOSE,RANDOM 80 mg/dL (74-106); LIPASE 76 U/L (73-393); SGOT/AST 28 U/L (15-37); SGPT/ALT 20 U/L (12-78); TOT PROT 5.7 g/dl (6.4-8.2)
[2017-06-22] MEDS: MAGNESIUM OXIDE 400 MG TABLET (FP) PO SCH ×2 (10:30→21:14)
[2017-06-22] MEDS: PANTOPRAZOLE 20 MG TABLET (FP) PO SCH (10:30)
[2017-06-22] MEDS: ENOXAPARIN NA (PORCINE) 30 MG/0.3 ML DISP.SYRIN SQ SCH (10:30)
[2017-06-22] MEDS: SPIRONOLACTONE 25 MG TABLET (FP) PO SCH (10:30)
[2017-06-22] MEDS ORDERED: IBUPROFEN 400 MG TABLET (FP) PO ONE (10:34)
--- NOTE | 2017-06-22 11:25 | PN ---
Progress Note (short form) - Note Progress Note: Anxious and weeping as she is not sure if she has some increased right sided abdominal discomfort. Denies CP or SOB. Currently on RA. Some occasional dry cough. Intake & Output 06/19/17 06/20/17 06/21/17 06/22/17 23:59 23:59 23:59 23:59 Intake Total 400 1900 300 Balance 400 1900 300 Weight 95 lb 94 lb 6.4 oz Last Vital Signs Temp Pulse Resp BP Pulse Ox 99.5 F 78 22 90/41 95 06/21/17 18:00 06/22/17 06:00 06/22/17 06:00 06/22/17 06:00 06/21/17 21:00 Active Medications Albuterol/Ipratropium (Duoneb -) 1 amp NEB Q6HPO [facility] Last Admin: 06/22/17 06:00 Dose: 1 amp Enoxaparin Sodium (Lovenox -) 30 mg SQ DAILY [facility] Last Admin: 06/22/17 10:30 Dose: 30 mg Piperacillin Sod/Tazobactam (Sod 3.375 gm/ Dextrose) 100 mls @ 100 mls/hr IVPB Q8H-IV CECILIA PRN Reason: Protocol Last Admin: 06/22/17 10:31 Dose: 100 mls/hr Lactulose (Cephulac (Oral Use)) 20 gm PO DAILY@1830 [facility] Last Admin: 06/21/17 18:54 Dose: Not Given Magnesium Oxide (Mag-Ox -) 400 mg PO BID [facility] Last Admin: 06/22/17 10:30 Dose: 400 mg Nadolol (Corgard -) 20 mg PO HS [facility] Last Admin: 06/21/17 22:57 Dose: 20 mg Pantoprazole Sodium (Protonix -) 20 mg PO DAILY [facility] Last Admin: 06/22/17 10:30 Dose: 20 mg Spironolactone (Aldactone -) 50 mg PO DAILY [facility] Last Admin: 06/22/17 10:30 Dose: 50 mg Tiotropium [place] (Spiriva -) 1 puff IH DAILY [facility] Last Admin: 06/21/17 14:01 Dose: 1 inhaler Constitutional: Yes: Anxious, awake and alert Eyes: Yes: EOM Intact HENT: Yes: Normocephalic Neck: Yes: Trachea Midline Cardiovascular: Yes: Regular Rate and Rhythm, S1, S2 Respiratory: Yes: Diminished, (+) BS. No: Rales, Wheezes Gastrointestinal: Yes: Soft, Ascites Renal/: Yes: WNL Edema: No Labs: Laboratory Results - last 24 hr 06/22/17 06/22/17 06/22/17 05:05 05:05 05:05 WBC 5.0 RBC 3.81 Hgb 12.4 Hct 37.0 MCV 97.2 H MCH 32.7 MCHC 33.6 RDW 16.6 H Plt Count 73 L D MPV 10.8 Neutrophils % 77.4 Lymphocytes % 11.7 Monocytes % 9.2 Eosinophils % 1.4 Basophils % 0.3 PT with INR 17.20 H INR 1.52 H PTT (Actin FS) 37.4 H Sodium 143 Potassium 3.5 Chloride 115 H Carbon Dioxide 16 L Anion Gap 12 BUN 9 D Creatinine 0.6 Creat Clearance w eGFR > 60 Random Glucose 80 Calcium 7.4 L Magnesium 2.0 Ferritin 177.628 Total Bilirubin 1.8 H D AST 28 D ALT 20 Alkaline Phosphatase 97 Ammonia C-Reactive Protein 7.2 H D Total Protein 5.7 L Albumin 2.4 L Total Amylase 59 Lipase 76 06/22/17 05:05 WBC RBC Hgb Hct MCV MCH MCHC RDW Plt Count MPV Neutrophils % Lymphocytes % Monocytes % Eosinophils % Basophils % PT with INR INR PTT (Actin FS) Sodium Potassium Chloride Carbon Dioxide Anion Gap BUN Creatinine Creat Clearance w eGFR Random Glucose Calcium Magnesium Ferritin Total Bilirubin AST ALT Alkaline Phosphatase Ammonia 42.51 H C-Reactive Protein Total Protein Albumin Total Amylase Lipase Problem List - Problems (1) COPD exacerbation Code(s): J44.1 - CHRONIC OBSTRUCTIVE PULMONARY DISEASE W (ACUTE) EXACERBATION (2) Pneumonia Code(s): J18.9 - PNEUMONIA, UNSPECIFIED ORGANISM Qualifiers: Pneumonia type: due to unspecified organism Laterality: left Lung location: upper lobe of lung Qualified Code(s): J18.1 - Lobar pneumonia, unspecified organism (3) Cirrhosis Code(s): K74.60 - UNSPECIFIED CIRRHOSIS OF LIVER (4) DVT prophylaxis Code(s): [id number] - (5) Leukopenia Code(s): D72.819 - DECREASED WHITE BLOOD CELL COUNT, UNSPECIFIED Assessment/Plan ETOH induced cirrhosis with portal vein thrombosis on lovenox (?) Liver CA (?) SBP Ascites Lactic acidosis Basilar atelectasis : Do not suspect CAP COPD ABX per ID Follow cultures Lovenox Bronchodilators as needed Abdominal pain workup ongoing (?) transfer to Primary Cirrhosis team Dr Cronin
[2017-06-22] MEDS: TIOTROPIUM BROMIDE 18 MCG/INH (DEVICE W/ 5 CAPSULES) IH SCH (11:44)
[2017-06-22] MEDS ORDERED: VANCOMYCIN 1 GRAM (PRE-DOCKED) 1,000 MG/250 ML BAG IVPB ONE (14:05)
--- NOTE | 2017-06-22 15:46 | PN ---
Progress Note, Physician History of Present Illness: says she is feeling better still discomfort on the sides now no breathing issues - Current Medication List Current Medications: Active Medications Albuterol/Ipratropium (Duoneb -) 1 amp NEB Q6HPO [facility] Last Admin: 06/22/17 12:30 Dose: Not Given Enoxaparin Sodium (Lovenox -) 30 mg SQ DAILY [facility] Last Admin: 06/22/17 10:30 Dose: 30 mg Piperacillin Sod/Tazobactam (Sod 3.375 gm/ Dextrose) 100 mls @ 100 mls/hr IVPB Q8H-IV [facility] PRN Reason: Protocol Last Admin: 06/22/17 10:31 Dose: 100 mls/hr Lactulose (Cephulac (Oral Use)) 20 gm PO DAILY@1830 [facility] Last Admin: 06/21/17 18:54 Dose: Not Given Magnesium Oxide (Mag-Ox -) 400 mg PO BID [facility] Last Admin: 06/22/17 10:30 Dose: 400 mg Nadolol (Corgard -) 20 mg PO HS [facility] Last Admin: 06/21/17 22:57 Dose: 20 mg Pantoprazole Sodium (Protonix -) 20 mg PO DAILY [facility] Last Admin: 06/22/17 10:30 Dose: 20 mg Spironolactone (Aldactone -) 50 mg PO DAILY [facility] Last Admin: 06/22/17 10:30 Dose: 50 mg Tiotropium [place] (Spiriva -) 1 puff IH DAILY [facility] Last Admin: 06/22/17 11:44 Dose: 1 inhaler - Objective Vital Signs: Vital Signs Temperature 98.1 F 06/22/17 10:00 Pulse Rate 70 06/22/17 10:00 Respiratory Rate 22 06/22/17 10:00 Blood Pressure 146/72 06/22/17 10:00 O2 Sat by Pulse Oximetry (%) 96 06/22/17 10:00 Constitutional: Yes: Calm, Mild Distress Eyes: Yes: Conjunctiva Clear Cardiovascular: Yes: Regular Rate and Rhythm Respiratory: Yes: Regular, CTA Bilaterally Gastrointestinal: Yes: Normal Bowel Sounds, Soft, Ascites, Other (pain in the sides) Musculoskeletal: Yes: WNL Extremities: Yes: WNL Neurological: Yes: Alert, Oriented Psychiatric: Yes: Alert Labs: CBC, BMP 06/22/17 05:05 06/22/17 05:05 INR, PTT INR 1.52 (0.82-1.09) H 06/22/17 05:05 Assessment/Plan Problem List - Problems (1) COPD exacerbation Code(s): J44.1 - CHRONIC OBSTRUCTIVE PULMONARY DISEASE W (ACUTE) EXACERBATION (2) Pneumonia Code(s): J18.9 - PNEUMONIA, UNSPECIFIED ORGANISM Qualifiers: Pneumonia type: due to unspecified organism Laterality: left Lung location: upper lobe of lung Qualified Code(s): J18.1 - Lobar pneumonia, unspecified organism (3) Cirrhosis Code(s): K74.60 - UNSPECIFIED CIRRHOSIS OF LIVER (5) Leukopenia Code(s): D72.819 - DECREASED WHITE BLOOD CELL COUNT, UNSPECIFIED plan conitnue current mgmt continue abx plan as per gi might consider working for abd pathology
--- NOTE | 2017-06-22 16:01 | PN ---
Physical Exam: SUBJECTIVE: Patient seen and examined at the bedside. OBJECTIVE: Patient having episodes of dyspnea at on room air, encouraged to keep the oxygen @ 2 liters on at all times and alternate with venti mask at 35% After albuterol treatment and venti mask, pt respiratory status improved Chest xray showed new left upper lobe infiltrate, discussed with motorcycle repairer, given Vanco 1 gram x 1 now She received 2 liters of NS in ER for lactic acidosis Vital Signs Period Temp Pulse Resp BP Sys/Davis Pulse Ox Last 24 Hr 98.1 F-99.5 F 70-78 20-22 90-146/41-72 95-96 GENERAL: Awake, alert, and fully oriented, frail, thin, disheveled HEAD: Normal with no signs of trauma. EYES: Pupils equal, round and reactive to light, extraocular movements intact, sclera anicteric, conjunctiva clear. No lid lag. EARS, NOSE, THROAT: Ears normal, nares patent, oropharynx clear without exudates. Moist mucous membranes. NECK: Normal range of motion, supple without lymphadenopathy, JVD, or masses. LUNGS: Breath sounds equal, diminished at the bases, chest xray shows new upper lobe infiltrate HEART: Regular rate and rhythm, normal S1 and S2 without murmur, rub or gallop. ABDOMEN: Soft, nontender, mildly distended, normoactive bowel sounds, no guarding, no rebound, no masses. No hepatomegaly or splenomegaly. MUSCULOSKELETAL: Normal range of motion at all joints. No bony deformities or tenderness. No CVA tenderness. UPPER EXTREMITIES: 2+ pulses, warm, well-perfused. No cyanosis. No clubbing. No peripheral edema. LOWER EXTREMITIES: 2+ pulses, warm, well-perfused. No calf tenderness. No peripheral edema. NEUROLOGICAL: Cranial nerves II-XII intact. Normal speech. Normal gait. PSYCHIATRIC: Cooperative. Good eye contact. Appropriate mood and affect. SKIN: Warm, dry, normal turgor, no rashes or lesions noted, normal capillary refill. Laboratory Results - last 24 hr 06/22/17 06/22/17 06/22/17 05:05 05:05 05:05 WBC 5.0 RBC 3.81 Hgb 12.4 Hct 37.0 MCV 97.2 H MCH 32.7 MCHC 33.6 RDW 16.6 H Plt Count 73 L D MPV 10.8 Neutrophils % 77.4 Lymphocytes % 11.7 Monocytes % 9.2 Eosinophils % 1.4 Basophils % 0.3 PT with INR 17.20 H INR 1.52 H PTT (Actin FS) 37.4 H Sodium 143 Potassium 3.5 Chloride 115 H Carbon Dioxide 16 L Anion Gap 12 BUN 9 D Creatinine 0.6 Creat Clearance w eGFR > 60 Random Glucose 80 Calcium 7.4 L Magnesium 2.0 Ferritin 177.628 Total Bilirubin 1.8 H D AST 28 D ALT 20 Alkaline Phosphatase 97 Ammonia C-Reactive Protein 7.2 H D Total Protein 5.7 L Albumin 2.4 L Total Amylase 59 Lipase 76 06/22/17 05:05 WBC RBC Hgb Hct MCV MCH MCHC RDW Plt Count MPV Neutrophils % Lymphocytes % Monocytes % Eosinophils % Basophils % PT with INR INR PTT (Actin FS) Sodium Potassium Chloride Carbon Dioxide Anion Gap BUN Creatinine Creat Clearance w eGFR Random Glucose Calcium Magnesium Ferritin Total Bilirubin AST ALT Alkaline Phosphatase Ammonia 42.51 H C-Reactive Protein Total Protein Albumin Total Amylase Lipase Active Medications Generic Name Dose Route Start Last Admin Trade Name Freq PRN Reason Stop Dose Admin Albuterol/Ipratropium 1 amp 06/20/17 19:15 06/22/17 12:30 Duoneb - NEB Not Given Q6HPO CECILIA Enoxaparin Sodium 30 mg 06/21/17 10:00 06/22/17 10:30 Lovenox - SQ 30 mg DAILY CECILIA Administration Piperacillin Sod/Tazobactam 100 mls @ 100 mls/hr 06/21/17 03:00 06/22/17 10: 31 Sod 3.375 gm/ Dextrose IVPB 100 mls/hr Q8H-IV CECILIA Administration Protocol Lactulose 20 gm 06/21/17 18:30 06/21/17 18:54 Cephulac (Oral Use) PO Not Given DAILY@1830 CECILIA Magnesium Oxide 400 mg 06/20/17 22:00 06/22/17 10:30 Mag-Ox - PO 400 mg BID CECILIA Administration Nadolol 20 mg 06/20/17 22:00 06/21/17 22:57 Corgard - PO 20 mg HS CECILIA Administration Pantoprazole Sodium 20 mg 06/21/17 10:00 06/22/17 10:30 Protonix - PO 20 mg DAILY CECILIA Administration Spironolactone 50 mg 06/21/17 10:00 06/22/17 10:30 Aldactone - PO 50 mg DAILY CECILIA Administration Tiotropium [place] 1 puff 06/21/17 10:00 06/22/17 11:44 Spiriva - IH 1 inhaler DAILY CECILIA Administration ASSESSMENT/PLAN: Patient is a 56 year old female with a significant past medical history of COPD , hepatic cirrhosis secondary to alcohol abuse (last drink 10 years ago), portal vein thrombosis (on home lovenox 30mg - 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 She presented to the ED on 06/20/2017 with subjective fevers, chills, rigors, palpitations, and full body pains and aches. She also states that she had shortness of breath at home and one episode of vomiting (non bili, non bloody as per pt). Patient reported that patient became hypoxic at home and her lips turned blue. She denies any recent travel or any sick contacts. She reports compliance with all her home medications. Imaging: Chest xray: interstitial opacities in the LUX with infiltrates CT/Abd/Pelvis CT w/contrast 06/20/2017: with following findings: cirrhotic configuration of the liver and portal vein thrombosis with heterogenous enhancement of the hepatic parencyma. Underlying hepatic malignancy cannot be excluded. Portal vein thrombosis may be tumor thrombus. No evidence of acute cholecystitis. Gastric wall thickening, extensive wall thickening through the colon and wall thickening in multiple small bowel loops. Moderate abdominopelvic ascites. CT abd: possible hepatic malignancy, portal vein thrombus, moderate abdominal ascites Pulmonary: Sepsis secondary to Pneumonia, acute Hypotensive with lactic acidosis in ED, noted to also have leukopenia Lactic acidosis 6.5>1.4 after 2 liter NS bolus Hypotension improved with IVF, pt systolic BP in 100s on previous admissions On Zosyn as per ID, given Vanco 1 gram x 1 for chest xray findings On Supplemental oxygen: nasal cannula with venti mask @ 35% Pulmonary following ID following COPD with acute bronchitis Duonebs scheduled Supplemental oxygen GI: Alcoholic hepatic cirrhosis with ascites Hepatic encephalopathy Coagulopathy Portal vein thrombosis Esophageal and gastric varicies As per GI, diagnostic paracentesis ordered, continue antibiotics Tumor markers pending for CT findings of possible hepatic malignancy IVF discontinued Lactulose 20gram BID, nadolol, spironolactone, lasix (lasix was on hold for hypotension, resume now) GI following Hematology: Thrombocytopenia improving @ 73 Monitor with daily CBC Portal vein Thrombosis: Subtherapeutic Lovenox 30mg home dose, pt reports pt is followed by Dr. Segura, hematology and she has been on this Lovenox dose for over 6 years Hematology consulted, notes reviewed Patient is a bleeding risk, comes in with low platelets, defer to heme for Lovenox adjustment, if any As per CT scan of abd. pelvis, underlying hepatic malignancy cannot be excluded , tumor markers pending F.E.N. Fluids: PO adequate Electrolytes: monitor bmp Nutrition: low sodium DVT: Lovenox 30mg home dose GI: Protonix Disposition: full code. Visit type - Emergency Visit Emergency Visit: Yes ED Registration Date: 06/20/17 Care time: The patient presented to the Emergency Department on the above date and was hospitalized for further evaluation of their emergent condition. - New Patient This patient is new to me today: No - Critical Care Critical Care patient: No - Discharge Referral Referred to [facility] Med P.C.: No
--- NOTE | 2017-06-22 16:44 | PN ---
Progress Note (short form) - Note Progress Note: Last Vital Signs seen and examined. She feels better than this am. on Venti mask though. Constitutional: on VM, comfortable Eyes: Yes: EOM Intact HENT: Yes: Normocephalic Neck: Yes: Trachea Midline Cardiovascular: Yes: Regular Rate and Rhythm, S1, S2 Respiratory: Yes: Diminished, (+) BS. No: Rales, Wheezes Gastrointestinal: Yes: Soft, Ascites Renal/: Yes: WNL Temp Pulse Resp BP Pulse Ox 98.1 F 70 22 146/72 96 06/22/17 10:00 06/22/17 10:00 06/22/17 10:00 06/22/17 10:00 06/22/17 10:00 CBC, BMP 06/22/17 05:05 06/22/17 05:05 Current Medications Generic Name Dose Route Start Last Admin Trade Name Freq PRN Reason Stop Dose Admin Albuterol/Ipratropium 1 amp 06/20/17 19:15 06/22/17 12:30 Duoneb - NEB Not Given Q6HPO CECIL[facility] Enoxaparin Sodium 30 mg 06/21/17 10:00 06/22/17 10:30 Lovenox - SQ 30 mg DAILY CECILIA Administration Furosemide 40 mg 06/22/17 16:30 Lasix - PO DAILY CECILIA Piperacillin Sod/Tazobactam 100 mls @ 100 mls/hr 06/21/17 03:00 06/22/17 10: 31 Sod 3.375 gm/ Dextrose IVPB 100 mls/hr Q8H-IV CECILIA Administration Protocol Lactulose 20 gm 06/21/17 18:30 06/21/17 18:54 Cephulac (Oral Use) PO Not Given DAILY@1830 CECILIA Magnesium Oxide 400 mg 06/20/17 22:00 06/22/17 10:30 Mag-Ox - PO 400 mg BID CECILIA Administration Nadolol 20 mg 06/20/17 22:00 06/21/17 22:57 Corgard - PO 20 mg HS CECILIA Administration Pantoprazole Sodium 20 mg 06/21/17 10:00 06/22/17 10:30 Protonix - PO 20 mg DAILY CECILIA Administration Spironolactone 50 mg 06/21/17 10:00 06/22/17 10:30 Aldactone - PO 50 mg DAILY CECILIA Administration Tiotropium [place] 1 puff 06/21/17 10:00 06/22/17 11:44 Spiriva - IH 1 inhaler DAILY CECILIA Administration PVT c/w present lovenox dose Thrombocytopenia stable INR 1.5 for Vit K trial Cirrhosis alcohol induced GI f/u noted for diag paracentesis abx per ID/Pulm d/w primary Problem List - Problems (1) Otitis media Code(s): H66.90 - OTITIS MEDIA, UNSPECIFIED, UNSPECIFIED EAR (2) Portal vein thrombosis Code(s): I81 - PORTAL VEIN THROMBOSIS (3) Thrombocytopenia Code(s): D69.6 - THROMBOCYTOPENIA, UNSPECIFIED (4) Splenomegaly Code(s): R16.1 - SPLENOMEGALY, NOT ELSEWHERE CLASSIFIED
[2017-06-22] MEDS: FUROSEMIDE 40 MG TABLET (FP) PO SCH (17:06)
[2017-06-22] MEDS: LACTULOSE 20 GM/30 ML UDC (FOR ORAL USE ONLY) PO SCH (17:42)
[2017-06-22] MEDS: NADOLOL 20 MG TABLET (FP) PO SCH (21:14)
[2017-06-22] MEDS ORDERED: IBUPROFEN 600 MG TABLET (FP) PO ONE (22:03)
[2017-06-23] MEDS ORDERED: oxyCODONE HCL 5 MG TABLET PO ONE (00:53)
[2017-06-23] MEDS ORDERED: oxyCODONE HCL 5 MG TABLET ONE (01:00)
[2017-06-23] MEDS: PIPERACILLIN/TAZOB 3.375 GM 3.375 GM in DEXTROSE 5%-WATER - 100 ML IVPB SCH ×3 (01:03→18:44)
[2017-06-23] MEDS: ALBUTEROL SO4 2.5/IPRATROPIUM 0.5 INH SOL 3 ML VIAL.NEB. NEB SCH ×4 (06:50→23:24)
[2017-06-23 07:39] LABS: BASO % 0.7 % (0-2.0); EOS % 2.7 % (0-4.5); HEMATOCRIT 36.6 % (32.4-45.2); LYMPH % 16.5 % (8-40); MCH 31.9 pg (25.7-33.7); MCHC 32.8 g/dl (32.0-36.0); MEAN CELL VOLUME 97.3 fl (80-96); MEAN PLT VOLUME 9.9 fl (7.5-11.1); MONO % 10.2 % (3.8-10.2); NEUT % 69.9 % (42.8-82.8); PLATELET COUNT 62 K/MM3 (134-434); RBC 3.77 M/mm3 (3.60-5.2); RDW 15.9 % (11.6-15.6); WHITE BLOOD COUNT 4.2 K/mm3 (4.0-10.0)
[2017-06-23 08:03] LABS: ALBUMIN 2.4 g/dl (3.4-5.0); ANION GAP 11 (8-16); BLOOD UREA NITROGEN 9 mg/dL (7-18); CALCIUM 7.7 mg/dL (8.5-10.1); CHLORIDE 112 mmol/L (98-107); CO2 18 mmol/L (21-32); GLUCOSE,RANDOM 95 mg/dL (74-106); MAGNESIUM 1.8 mg/dL (1.8-2.4); POTASSIUM 3.4 mmol/L (3.5-5.1); SODIUM 141 mmol/L (136-145)
[2017-06-23 08:07] LABS: ALK PHOS 92 U/L (45-117); BILIRUBIN,TOTAL 1.5 mg/dL (0.2-1.0); CREATININE 0.6 mg/dL (0.55-1.02); SGOT/AST 30 U/L (15-37); SGPT/ALT 19 U/L (12-78); TOT PROT 5.5 g/dl (6.4-8.2)
[2017-06-23] MEDS ORDERED: PT OWN MED DRAWER 7, Y5N ONE ×2 (10:05→16:44)
[2017-06-23] MEDS: PANTOPRAZOLE 20 MG TABLET (FP) PO SCH (10:39)
[2017-06-23] MEDS: SPIRONOLACTONE 25 MG TABLET (FP) PO SCH (10:39)
[2017-06-23] MEDS: MAGNESIUM OXIDE 400 MG TABLET (FP) PO SCH ×2 (10:39→21:59)
[2017-06-23] MEDS: FUROSEMIDE 40 MG TABLET (FP) PO SCH (10:39)
[2017-06-23] MEDS: ENOXAPARIN NA (PORCINE) 30 MG/0.3 ML DISP.SYRIN SQ SCH (10:39)
[2017-06-23] MEDS: TIOTROPIUM BROMIDE 18 MCG/INH (DEVICE W/ 5 CAPSULES) IH SCH (10:40)
--- NOTE | 2017-06-23 12:23 | PN ---
Progress Note (short form) - Note Progress Note: Appears better today. Less anxious as her abdominal discomfort is better. States breathing is improved on the VM O2. Some dry cough, no sputum production. CXR: Question increased vascular congestion rather than infiltrate. Intake & Output 06/20/17 06/21/17 06/22/17 06/23/17 23:59 23:59 23:59 23:59 Intake Total 400 1900 600 560 Balance 400 1900 600 560 Weight 95 lb 94 lb 6.4 oz 96 lb 6.4 oz Last Vital Signs Temp Pulse Resp BP Pulse Ox 98.7 F 66 20 100/54 94 L 06/23/17 06:00 06/23/17 06:00 06/23/17 06:00 06/23/17 06:00 06/22/17 21:00 Active Medications Albuterol/Ipratropium (Duoneb -) 1 amp NEB Q6HPO [facility] Last Admin: 06/23/17 06:50 Dose: 1 amp Enoxaparin Sodium (Lovenox -) 30 mg SQ DAILY [facility] Last Admin: 06/23/17 10:39 Dose: 30 mg Furosemide (Lasix -) 40 mg PO DAILY [facility] Last Admin: 06/23/17 10:39 Dose: 40 mg Piperacillin Sod/Tazobactam (Sod 3.375 gm/ Dextrose) 100 mls @ 100 mls/hr IVPB Q8H-IV [facility] PRN Reason: Protocol Last Admin: 06/23/17 10:39 Dose: 100 mls/hr Lactulose (Cephulac (Oral Use)) 20 gm PO DAILY@1830 [facility] Last Admin: 06/22/17 17:42 Dose: 20 gm Magnesium Oxide (Mag-Ox -) 400 mg PO BID [facility] Last Admin: 06/23/17 10:39 Dose: 400 mg Nadolol (Corgard -) 20 mg PO HS [facility] Last Admin: 06/22/17 21:14 Dose: 20 mg Pantoprazole Sodium (Protonix -) 20 mg PO DAILY [facility] Last Admin: 06/23/17 10:39 Dose: 20 mg Spironolactone (Aldactone -) 50 mg PO DAILY [facility] Last Admin: 06/23/17 10:39 Dose: 50 mg Tiotropium [place] (Spiriva -) 1 puff IH DAILY [facility] Last Admin: 06/23/17 10:40 Dose: 1 inhaler Constitutional: Yes: Less anxious, awake and alert on VM O2 Eyes: Yes: EOM Intact HENT: Yes: Normocephalic Neck: Yes: Trachea Midline Cardiovascular: Yes: Regular Rate and Rhythm, S1, S2 Respiratory: Yes: Diminished, (+) BS. No: Rales, Wheezes Gastrointestinal: Yes: Soft, Ascites Renal/: Yes: WNL Edema: No Labs: Laboratory Results - last 24 hr 06/23/17 06/23/17 06/23/17 05:28 05:28 05:28 WBC 4.2 RBC 3.77 Hgb 12.0 Hct 36.6 MCV 97.3 H MCH 31.9 MCHC 32.8 RDW 15.9 H Plt Count 62 L MPV 9.9 Neutrophils % 69.9 Lymphocytes % 16.5 D Monocytes % 10.2 Eosinophils % 2.7 D Basophils % 0.7 Sodium 141 Potassium 3.4 L Chloride 112 H Carbon Dioxide 18 L Anion Gap 11 BUN 9 Creatinine 0.6 Creat Clearance w eGFR > 60 Random Glucose 95 Calcium 7.7 L Magnesium 1.8 Total Bilirubin 1.5 H AST 30 ALT 19 Alkaline Phosphatase 92 Ammonia 64.43 H Total Protein 5.5 L Albumin 2.4 L Problem List - Problems (1) COPD exacerbation Code(s): J44.1 - CHRONIC OBSTRUCTIVE PULMONARY DISEASE W (ACUTE) EXACERBATION (2) Pneumonia Code(s): J18.9 - PNEUMONIA, UNSPECIFIED ORGANISM Qualifiers: Pneumonia type: due to unspecified organism Laterality: left Lung location: upper lobe of lung Qualified Code(s): J18.1 - Lobar pneumonia, unspecified organism (3) Cirrhosis Code(s): K74.60 - UNSPECIFIED CIRRHOSIS OF LIVER (4) DVT prophylaxis Code(s): [id number] - (5) Leukopenia Code(s): D72.819 - DECREASED WHITE BLOOD CELL COUNT, UNSPECIFIED Assessment/Plan 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
--- NOTE | 2017-06-23 13:56 | PN ---
Progress Note (short form) - Note Progress Note: seen and examined. she looked better. feels OK she says Abdominal pain better. Constitutional: on VM, comfortable Eyes: Yes: EOM Intact HENT: Yes: Normocephalic Neck: Yes: Trachea Midline Cardiovascular: Yes: Regular Rate and Rhythm, S1, S2 Respiratory: Yes: Diminished, (+) BS. No: Rales, Wheezes Gastrointestinal: Yes: Soft, Ascites Renal/: Yes: WNL Last Vital Signs Temp Pulse Resp BP Pulse Ox 98.1 F 68 20 113/51 95 06/23/17 10:00 06/23/17 10:00 06/23/17 10:00 06/23/17 10:00 06/23/17 10:00 CBC, BMP 06/23/17 05:28 06/23/17 05:28 Current Medications Generic Name Dose Route Start Last Admin Trade Name Freq PRN Reason Stop Dose Admin Albuterol/Ipratropium 1 amp 06/20/17 19:15 06/23/17 12:55 Duoneb - NEB 1 amp Q6HPO [facility] Administration Enoxaparin Sodium 30 mg 06/21/17 10:00 06/23/17 10:39 Lovenox - SQ 30 mg DAILY [facility] Administration Furosemide 40 mg 06/22/17 16:30 06/23/17 10:39 Lasix - PO 40 mg DAILY [facility] Administration Piperacillin Sod/Tazobactam 100 mls @ 100 mls/hr 06/21/17 03:00 06/23/17 10: 39 Sod 3.375 gm/ Dextrose IVPB 100 mls/hr Q8H-IV [facility] Administration Protocol Lactulose 20 gm 06/21/17 18:30 06/22/17 17:42 Cephulac (Oral Use) PO 20 gm DAILY@1830 [facility] Administration Magnesium Oxide 400 mg 06/20/17 22:00 06/23/17 10:39 Mag-Ox - PO 400 mg BID [facility] Administration Nadolol 20 mg 06/20/17 22:00 06/22/17 21:14 Corgard - PO 20 mg HS [facility] Administration Pantoprazole Sodium 20 mg 06/21/17 10:00 06/23/17 10:39 Protonix - PO 20 mg DAILY [facility] Administration Spironolactone 50 mg 06/21/17 10:00 06/23/17 10:39 Aldactone - PO 50 mg DAILY [facility] Administration Tiotropium [place] 1 puff 06/21/17 10:00 06/23/17 10:40 Spiriva - IH 1 inhaler DAILY [facility] Administration PVT c/w present lovenox dose Thrombocytopenia stable INR 1.5 for Vit K trial Cirrhosis alcohol induced GI f/u noted for diag paracentesis MR liver IP/OP. abx per ID/Pulm Problem List - Problems (1) Otitis media Code(s): H66.90 - OTITIS MEDIA, UNSPECIFIED, UNSPECIFIED EAR (2) Portal vein thrombosis Code(s): I81 - PORTAL VEIN THROMBOSIS (3) Thrombocytopenia Code(s): D69.6 - THROMBOCYTOPENIA, UNSPECIFIED (4) Splenomegaly Code(s): R16.1 - SPLENOMEGALY, NOT ELSEWHERE CLASSIFIED
--- NOTE | 2017-06-23 15:28 | PN ---
Progress Note, Physician History of Present Illness: continues to ahve abd pain plan is to tap ther tomorrow and see if there is infection abd pain still present - Current Medication List Current Medications: Active Medications Albuterol/Ipratropium (Duoneb -) 1 amp NEB Q6HPO [facility] Last Admin: 06/23/17 12:55 Dose: 1 amp Enoxaparin Sodium (Lovenox -) 30 mg SQ DAILY [facility] Last Admin: 06/23/17 10:39 Dose: 30 mg Furosemide (Lasix -) 40 mg PO DAILY [facility] Last Admin: 06/23/17 10:39 Dose: 40 mg Piperacillin Sod/Tazobactam (Sod 3.375 gm/ Dextrose) 100 mls @ 100 mls/hr IVPB Q8H-IV [facility] PRN Reason: Protocol Last Admin: 06/23/17 10:39 Dose: 100 mls/hr Lactulose (Cephulac (Oral Use)) 20 gm PO DAILY@1830 [facility] Last Admin: 06/22/17 17:42 Dose: 20 gm Magnesium Oxide (Mag-Ox -) 400 mg PO BID [facility] Last Admin: 06/23/17 10:39 Dose: 400 mg Nadolol (Corgard -) 20 mg PO HS [facility] Last Admin: 06/22/17 21:14 Dose: 20 mg Pantoprazole Sodium (Protonix -) 20 mg PO DAILY [facility] Last Admin: 06/23/17 10:39 Dose: 20 mg Spironolactone (Aldactone -) 50 mg PO DAILY [facility] Last Admin: 06/23/17 10:39 Dose: 50 mg Tiotropium [place] (Spiriva -) 1 puff IH DAILY [facility] Last Admin: 06/23/17 10:40 Dose: 1 inhaler - Objective Vital Signs: Vital Signs Temperature 98.1 F 06/23/17 10:00 Pulse Rate 68 06/23/17 10:00 Respiratory Rate 20 06/23/17 10:00 Blood Pressure 113/51 06/23/17 10:00 O2 Sat by Pulse Oximetry (%) 95 06/23/17 10:00 Constitutional: Yes: Calm, Mild Distress HENT: Yes: Atraumatic Cardiovascular: Yes: Regular Rate and Rhythm Respiratory: Yes: Regular, CTA Bilaterally Gastrointestinal: Yes: Soft, Tenderness, Other Musculoskeletal: Yes: WNL Extremities: Yes: WNL Neurological: Yes: Alert, Oriented Psychiatric: Yes: Alert, Oriented Labs: CBC, BMP 06/23/17 05:28 06/23/17 05:28 INR, PTT INR 1.52 (0.82-1.09) H 06/22/17 05:05 Assessment/Plan Problem List - Problems (1) COPD exacerbation Code(s): J44.1 - CHRONIC OBSTRUCTIVE PULMONARY DISEASE W (ACUTE) EXACERBATION (2) Pneumonia Code(s): J18.9 - PNEUMONIA, UNSPECIFIED ORGANISM Qualifiers: Pneumonia type: due to unspecified organism Laterality: left Lung location: upper lobe of lung Qualified Code(s): J18.1 - Lobar pneumonia, unspecified organism (3) Cirrhosis Code(s): K74.60 - UNSPECIFIED CIRRHOSIS OF LIVER (5) Leukopenia Code(s): D72.819 - DECREASED WHITE BLOOD CELL COUNT, UNSPECIFIED plan continue current mgmt continue abx plan for abd tap tomorrow will see if any pathology rest ct current mgmt
--- NOTE | 2017-06-23 17:56 | PN ---
Physical Exam: SUBJECTIVE: Patient seen and examined at bedside. Complaining of nausea. OBJECTIVE: Vital Signs Period Temp Pulse Resp BP Sys/Davis Pulse Ox Last 24 Hr 97.9 F-98.7 F 65-82 20-22 97-113/48-65 94-95 GENERAL: The patient is awake, alert, and fully oriented, in no acute distress. Thin, frail. LUNGS: Breath sounds equal, clear to auscultation bilaterally, no wheezes, no crackles, no accessory muscle use. HEART: Regular rate and rhythm, S1, S2 ABDOMEN: Soft, mild tenderness over epigastrum, mildly distended, + bowel sounds , no guarding, no rebound EXTREMITIES: 2+ pulses, warm, well-perfused, no edema. NEUROLOGICAL: Cranial nerves II through XII grossly intact. Normal speech, gait not observed. Laboratory Results - last 24 hr 06/23/17 06/23/17 06/23/17 05:28 05:28 05:28 WBC 4.2 RBC 3.77 Hgb 12.0 Hct 36.6 MCV 97.3 H MCH 31.9 MCHC 32.8 RDW 15.9 H Plt Count 62 L MPV 9.9 Neutrophils % 69.9 Lymphocytes % 16.5 D Monocytes % 10.2 Eosinophils % 2.7 D Basophils % 0.7 Sodium 141 Potassium 3.4 L Chloride 112 H Carbon Dioxide 18 L Anion Gap 11 BUN 9 Creatinine 0.6 Creat Clearance w eGFR > 60 Random Glucose 95 Calcium 7.7 L Magnesium 1.8 Total Bilirubin 1.5 H AST 30 ALT 19 Alkaline Phosphatase 92 Ammonia 64.43 H Total Protein 5.5 L Albumin 2.4 L Active Medications Generic Name Dose Route Start Last Admin Trade Name Freq PRN Reason Stop Dose Admin Albuterol/Ipratropium 1 amp 06/20/17 19:15 06/23/17 17:42 Duoneb - NEB 1 amp Q6HPO [facility] Administration Enoxaparin Sodium 30 mg 06/21/17 10:00 06/23/17 10:39 Lovenox - SQ 30 mg DAILY [facility] Administration Furosemide 40 mg 06/22/17 16:30 06/23/17 10:39 Lasix - PO 40 mg DAILY [facility] Administration Piperacillin Sod/Tazobactam 100 mls @ 100 mls/hr 06/21/17 03:00 06/23/17 10: 39 Sod 3.375 gm/ Dextrose IVPB 100 mls/hr Q8H-IV [facility] Administration Protocol Lactulose 20 gm 06/21/17 18:30 06/22/17 17:42 Cephulac (Oral Use) PO 20 gm DAILY@1830 [facility] Administration Magnesium Oxide 400 mg 06/20/17 22:00 06/23/17 10:39 Mag-Ox - PO 400 mg BID [facility] Administration Nadolol 20 mg 06/20/17 22:00 06/22/17 21:14 Corgard - PO 20 mg HS [facility] Administration Pantoprazole Sodium 20 mg 06/21/17 10:00 06/23/17 10:39 Protonix - PO 20 mg DAILY [facility] Administration Spironolactone 50 mg 06/21/17 10:00 06/23/17 10:39 Aldactone - PO 50 mg DAILY [facility] Administration Tiotropium [place] 1 puff 06/21/17 10:00 06/23/17 10:40 Spiriva - IH 1 inhaler DAILY [facility] Administration ASSESSMENT/PLAN: 56 year-old female with a PMH significant for hepatic cirrhosis secondary to alcohol use (last drink x 10 years), portal vein thrombosis on home lovenox, and COPD. Admitted with severe sepsis secondary to pneumonia v. SBP v. both. Severe sepsis of uncertain etiology --on admission febrile to 101.8, tachycardic to 117, lactic acid 6.5; now afebrile >72 hours, hemodynamically stable, no leukocytosis --possible pulmonary source of infection with LXU infiltrates on CXR --possible GI source, suspicion for spontaneous bacterial peritonitis secondary to pneumonia --continue Zosyn (day #3) COPD --continue duonebs Hepatic cirrhosis, chronic Portal vein thrombosis, chronic Esophageal and gastric varices Hepatic encephalopathy --continue home dose lovenox 30mg daily --continue lactulose --continue nadolol, lasix, spironolactone Ascites --paracentesis tomorrow r/o hepatic malignancy --tumor marker AFP, CA 19-9 pending --f/u fluid cytology FEN Fluids: PO intake adequate Electrolytes: replete as indicated Nutrition: diabetic low sodium DVT prophylaxis: on lovenox 30mg daily Physical therapy evaluation Dispo: continues to require inpatient care. Full code. Visit type - Emergency Visit Emergency Visit: Yes ED Registration Date: 06/20/17 Care time: The patient presented to the Emergency Department on the above date and was hospitalized for further evaluation of their emergent condition. - New Patient This patient is new to me today: Yes Date on this admission: 06/23/17 - Critical Care Critical Care patient: No
[2017-06-23] MEDS ORDERED: ONDANSETRON 4 MG/2 ML VIAL IVPUSH PRN (20:45)
[2017-06-23] MEDS: NADOLOL 20 MG TABLET (FP) PO SCH (21:59)
[2017-06-23] MEDS: LACTULOSE 20 GM/30 ML UDC (FOR ORAL USE ONLY) PO SCH (22:01)
[2017-06-24] MEDS ORDERED: IBUPROFEN 400 MG TABLET (FP) PO ONE (01:03)
[2017-06-24] MEDS ORDERED: IBUPROFEN 600 MG TABLET (FP) PO ONE (01:03)
[2017-06-24] MEDS ORDERED: PT OWN MED DRAWER 7, Y5N ONE ×2 (01:06→08:57)
[2017-06-24] MEDS: PIPERACILLIN/TAZOB 3.375 GM 3.375 GM in DEXTROSE 5%-WATER - 100 ML IVPB SCH ×2 (02:00→09:41)
--- NOTE | 2017-06-24 06:04 | PN ---
Physical Exam: SUBJECTIVE: Patient seen and examined at bedside. Yelling at . Wants to leave because the room is too cold (it is not) and because she has chronic shoulder pain. Scheduled for paracentesis today. OBJECTIVE: Vital Signs Period Temp Pulse Resp BP Sys/Davis Pulse Ox Last 24 Hr 98.1 F-98.7 F 68-80 20-20 100-117/51-59 94-95 GENERAL: The patient is awake, alert, and fully oriented. Thin, frail. LUNGS: Breath sounds equal, clear to auscultation bilaterally, no wheezes, no crackles, no accessory muscle use. HEART: Regular rate and rhythm, S1, S2 ABDOMEN: Soft, mild tenderness over epigastrum, mildly distended, + bowel sounds , no guarding, no rebound EXTREMITIES: 2+ pulses, warm, well-perfused, no edema. NEUROLOGICAL: Cranial nerves II through XII grossly intact. Normal speech, gait not observed. Laboratory Results - last 24 hr 06/23/17 06/23/17 06/23/17 05:28 05:28 05:28 WBC 4.2 RBC 3.77 Hgb 12.0 Hct 36.6 MCV 97.3 H MCH 31.9 MCHC 32.8 RDW 15.9 H Plt Count 62 L MPV 9.9 Neutrophils % 69.9 Lymphocytes % 16.5 D Monocytes % 10.2 Eosinophils % 2.7 D Basophils % 0.7 Sodium 141 Potassium 3.4 L Chloride 112 H Carbon Dioxide 18 L Anion Gap 11 BUN 9 Creatinine 0.6 Creat Clearance w eGFR > 60 Random Glucose 95 Calcium 7.7 L Magnesium 1.8 Total Bilirubin 1.5 H AST 30 ALT 19 Alkaline Phosphatase 92 Ammonia 64.43 H Total Protein 5.5 L Albumin 2.4 L Active Medications Generic Name Dose Route Start Last Admin Trade Name Freq PRN Reason Stop Dose Admin Albuterol/Ipratropium 1 amp 06/20/17 19:15 06/23/17 23:24 Duoneb - NEB 1 amp Q6HPO [facility] Administration Enoxaparin Sodium 30 mg 06/21/17 10:00 06/23/17 10:39 Lovenox - SQ 30 mg DAILY [facility] Administration Furosemide 40 mg 06/22/17 16:30 06/23/17 10:39 Lasix - PO 40 mg DAILY [facility] Administration Piperacillin Sod/Tazobactam 100 mls @ 100 mls/hr 06/21/17 03:00 06/23/17 18: 44 Sod 3.375 gm/ Dextrose IVPB 100 mls/hr Q8H-IV [facility] Administration Protocol Lactulose 20 gm 06/21/17 18:30 06/23/17 22:01 Cephulac (Oral Use) PO Not Given DAILY@1830 [facility] Magnesium Oxide 400 mg 06/20/17 22:00 06/23/17 21:59 Mag-Ox - PO 400 mg BID [facility] Administration Nadolol 20 mg 06/20/17 22:00 06/23/17 21:59 Corgard - PO 20 mg HS [facility] Administration Ondansetron HCl 4 mg 06/23/17 20:45 Zofran Injection IVPUSH Q6H PRN NAUSEA AND/OR VOMITING Pantoprazole Sodium 20 mg 06/21/17 10:00 06/23/17 10:39 Protonix - PO 20 mg DAILY [facility] Administration Spironolactone 50 mg 06/21/17 10:00 06/23/17 10:39 Aldactone - PO 50 mg DAILY [facility] Administration Tiotropium [place] 1 puff 06/21/17 10:00 06/23/17 10:40 Spiriva - IH 1 inhaler DAILY [facility] Administration ASSESSMENT/PLAN 56 year-old female with a PMH significant for hepatic cirrhosis secondary to alcohol use (last drink x 10 years), portal vein thrombosis on home lovenox, and COPD. Admitted with severe sepsis secondary to pneumonia v. SBP v. both. Severe sepsis of uncertain etiology --on admission febrile to 101.8, tachycardic to 117, lactic acid 6.5; now afebrile, hemodynamically stable, no leukocytosis --possible pulmonary source of infection with LUX infiltrates on CXR --possible GI source, suspicion for spontaneous bacterial peritonitis secondary to pneumonia --continue Zosyn (day #4) COPD --continue duonebs Hepatic cirrhosis, chronic Portal vein thrombosis, chronic Esophageal and gastric varices Hepatic encephalopathy --held lovenox this morning for procedure today --continue lactulose --continue nadolol, lasix, spironolactone Ascites --paracentesis today r/o hepatic malignancy --tumor marker AFP, CA 19-9 pending --f/u fluid cytology after paracentesis FEN Fluids: PO intake adequate Electrolytes: replete as indicated Nutrition: diabetic low sodium DVT prophylaxis: on lovenox 30mg daily Physical therapy evaluation Dispo: continues to require inpatient care. Full code. Visit type - Emergency Visit Emergency Visit: Yes ED Registration Date: 06/20/17 Care time: The patient presented to the Emergency Department on the above date and was hospitalized for further evaluation of their emergent condition. - New Patient This patient is new to me today: No - Critical Care Critical Care patient: No
[2017-06-24 06:06] LABS: SERUM IRON SATURATION 23 % (15-55); TOTAL IRON BINDING CAPACITY 184 ug/dL (250-450); UIBC 142 ug/dL (131-425)
[2017-06-24] MEDS: ALBUTEROL SO4 2.5/IPRATROPIUM 0.5 INH SOL 3 ML VIAL.NEB. NEB SCH ×2 (06:19→11:15)
[2017-06-24 08:07] LABS: BASO % 0.7 % (0-2.0); EOS % 1.8 % (0-4.5); HEMATOCRIT 36.6 % (32.4-45.2); HEMOGLOBIN 12.2 GM/dL (10.7-15.3); LYMPH % 15.8 % (8-40); MCH 31.9 pg (25.7-33.7); MCHC 33.4 g/dl (32.0-36.0); MEAN CELL VOLUME 95.6 fl (80-96); MEAN PLT VOLUME 9.7 fl (7.5-11.1); MONO % 10.6 % (3.8-10.2); NEUT % 71.1 % (42.8-82.8); PLATELET COUNT 68 K/MM3 (134-434); RBC 3.83 M/mm3 (3.60-5.2); RDW 15.7 % (11.6-15.6); WHITE BLOOD COUNT 3.4 K/mm3 (4.0-10.0)
[2017-06-24 08:28] LABS: INR 1.29 (0.82-1.09); PROTHROMBIN TIME (PATIENT) 14.6 SEC (9.98-11.88)
[2017-06-24 08:29] LABS: CHLORIDE 107 mmol/L (98-107); POTASSIUM 3.3 mmol/L (3.5-5.1); SODIUM 139 mmol/L (136-145)
[2017-06-24 08:42] LABS: ALBUMIN 2.5 g/dl (3.4-5.0); ALK PHOS 91 U/L (45-117); ANION GAP 8 (8-16); BILIRUBIN,DIRECT 0.7 mg/dL (0.0-0.2); BILIRUBIN,TOTAL 1.8 mg/dL (0.2-1.0); BLOOD UREA NITROGEN 9 mg/dL (7-18); CALCIUM 7.6 mg/dL (8.5-10.1); CO2 24 mmol/L (21-32); CREATININE 0.6 mg/dL (0.55-1.02); GLUCOSE,RANDOM 114 mg/dL (74-106); MAGNESIUM 1.7 mg/dL (1.8-2.4); SGOT/AST 28 U/L (15-37); SGPT/ALT 20 U/L (12-78); TOT PROT 5.8 g/dl (6.4-8.2)
[2017-06-24] MEDS: TIOTROPIUM BROMIDE 18 MCG/INH (DEVICE W/ 5 CAPSULES) IH SCH (09:41)
[2017-06-24] MEDS: PANTOPRAZOLE 20 MG TABLET (FP) PO SCH (09:41)
[2017-06-24] MEDS: MAGNESIUM OXIDE 400 MG TABLET (FP) PO SCH (09:41)
[2017-06-24] MEDS: SPIRONOLACTONE 25 MG TABLET (FP) PO SCH (09:41)
[2017-06-24] MEDS: FUROSEMIDE 40 MG TABLET (FP) PO SCH (10:00)
--- NOTE | 2017-06-24 10:38 | PN ---
Progress Note, Physician History of Present Illness: Chart reviewed. C/o cold room. No events. Afebrile. AA. NO pain, or discomfort. Tmax 99 - Current Medication List Current Medications: Active Medications Albuterol/Ipratropium (Duoneb -) 1 amp NEB Q6HPO [facility] Last Admin: 06/24/17 06:19 Dose: 1 amp Enoxaparin Sodium (Lovenox -) 30 mg SQ DAILY [facility] Last Admin: 06/23/17 10:39 Dose: 30 mg Furosemide (Lasix -) 40 mg PO DAILY [facility] Last Admin: 06/24/17 10:00 Dose: Not Given Piperacillin Sod/Tazobactam (Sod 3.375 gm/ Dextrose) 100 mls @ 100 mls/hr IVPB Q8H-IV [facility] PRN Reason: Protocol Last Admin: 06/24/17 09:41 Dose: 100 mls/hr Lactulose (Cephulac (Oral Use)) 20 gm PO DAILY@1830 [facility] Last Admin: 06/23/17 22:01 Dose: Not Given Magnesium Oxide (Mag-Ox -) 400 mg PO BID [facility] Last Admin: 06/24/17 09:41 Dose: 400 mg Nadolol (Corgard -) 20 mg PO HS [facility] Last Admin: 06/23/17 21:59 Dose: 20 mg Ondansetron HCl (Zofran Injection) 4 mg IVPUSH Q6H PRN PRN Reason: NAUSEA AND/OR VOMITING Pantoprazole Sodium (Protonix -) 20 mg PO DAILY [facility] Last Admin: 06/24/17 09:41 Dose: 20 mg Spironolactone (Aldactone -) 50 mg PO DAILY [facility] Last Admin: 06/24/17 09:41 Dose: 50 mg Tiotropium [place] (Spiriva -) 1 puff IH DAILY [facility] Last Admin: 06/24/17 09:41 Dose: 1 inhaler - Objective Vital Signs: Vital Signs Temperature 99.2 F 06/24/17 05:00 Pulse Rate 77 06/24/17 05:00 Respiratory Rate 20 06/24/17 05:00 Blood Pressure 98/54 06/24/17 05:00 O2 Sat by Pulse Oximetry (%) 94 L 06/23/17 21:00 Constitutional: Yes: No Distress, Calm Eyes: Yes: Conjunctiva Clear Gastrointestinal: Yes: Soft. No: Distention, Melena, Rectal Bleeding, Tenderness Neurological: Yes: Alert, Oriented. No: [place], Lethargy, Tremors Labs: CBC, BMP 06/24/17 07:34 06/24/17 07:34 INR, PTT INR 1.29 (0.82-1.09) H 06/24/17 07:34 Abnormal Lab Results 06/22/17 06/24/17 06/24/17 05:05 07:34 07:34 WBC 3.4 L RDW 15.7 H Plt Count 68 L Monocytes % 10.6 H PT with INR 14.60 H INR 1.29 H Potassium Random Glucose Calcium Magnesium TIBC 184 L Total Bilirubin Direct Bilirubin Total Protein Albumin 06/24/17 07:34 WBC RDW Plt Count Monocytes % PT with INR INR Potassium 3.3 L Random Glucose 114 H Calcium 7.6 L Magnesium 1.7 L TIBC Total Bilirubin 1.8 H Direct Bilirubin 0.7 H Total Protein 5.8 L Albumin 2.5 L - ....Imaging Cat Scan: Report Reviewed Problem List - Problems (1) Ascites due to alcoholic cirrhosis Code(s): K70.31 - ALCOHOLIC CIRRHOSIS OF LIVER WITH ASCITES (2) Pneumonia Code(s): J18.9 - PNEUMONIA, UNSPECIFIED ORGANISM Qualifiers: Pneumonia type: due to unspecified organism Laterality: left Lung location: upper lobe of lung Qualified Code(s): J18.1 - Lobar pneumonia, unspecified organism (3) Cirrhosis Code(s): K74.60 - UNSPECIFIED CIRRHOSIS OF LIVER (4) Portal vein thrombosis Code(s): I81 - PORTAL VEIN THROMBOSIS Assessment/Plan PNA, Ascites. Being covered for SBP. BUN, Cr, NA withing normal range. Continue current management, close monitoring. CMP, CBC daily.
[2017-06-24] MEDS ORDERED: MAGNESIUM SULF 50% (8.12 MEQ/2 ML-1 GM VIAL) IVPB ONE (11:45)
[2017-06-24] MEDS ORDERED: oxyCODONE HCL 5 MG TABLET PO ONE (11:45)
--- NOTE | 2017-06-24 11:52 | PN ---
Progress Note, Physician History of Present Illness: PULMONARY AWAKE,NAD,-C/O SOB - Current Medication List Current Medications: Active Medications Albuterol/Ipratropium (Duoneb -) 1 amp NEB Q6HPO [facility] Last Admin: 06/24/17 06:19 Dose: 1 amp Enoxaparin Sodium (Lovenox -) 30 mg SQ DAILY [facility] Last Admin: 06/23/17 10:39 Dose: 30 mg Furosemide (Lasix -) 40 mg PO DAILY [facility] Last Admin: 06/24/17 10:00 Dose: Not Given Piperacillin Sod/Tazobactam (Sod 3.375 gm/ Dextrose) 100 mls @ 100 mls/hr IVPB Q8H-IV [facility] PRN Reason: Protocol Last Admin: 06/24/17 09:41 Dose: 100 mls/hr Lactulose (Cephulac (Oral Use)) 20 gm PO DAILY@1830 [facility] Last Admin: 06/23/17 22:01 Dose: Not Given Magnesium Oxide (Mag-Ox -) 400 mg PO BID [facility] Last Admin: 06/24/17 09:41 Dose: 400 mg Nadolol (Corgard -) 20 mg PO HS [facility] Last Admin: 06/23/17 21:59 Dose: 20 mg Ondansetron HCl (Zofran Injection) 4 mg IVPUSH Q6H PRN PRN Reason: NAUSEA AND/OR VOMITING Pantoprazole Sodium (Protonix -) 20 mg PO DAILY [facility] Last Admin: 06/24/17 09:41 Dose: 20 mg Potassium Chloride (K-Dur -) 40 meq PO Q6H [facility] Stop: 06/24/17 18:01 Spironolactone (Aldactone -) 50 mg PO DAILY [facility] Last Admin: 06/24/17 09:41 Dose: 50 mg Tiotropium [place] (Spiriva -) 1 puff IH DAILY [facility] Last Admin: 06/24/17 09:41 Dose: 1 inhaler - Objective Vital Signs: Vital Signs Temperature 99.2 F 06/24/17 05:00 Pulse Rate 77 06/24/17 05:00 Respiratory Rate 20 06/24/17 05:00 Blood Pressure 98/54 06/24/17 05:00 O2 Sat by Pulse Oximetry (%) 94 L 06/23/17 21:00 Constitutional: Yes: Calm, Thin Eyes: Yes: WNL HENT: Yes: WNL Neck: Yes: WNL Cardiovascular: Yes: Regular Rate and Rhythm, S1, S2 Respiratory: Yes: CTA Bilaterally Gastrointestinal: Yes: Normal Bowel Sounds, Soft Extremities: Yes: WNL Edema: No Labs: CBC, BMP 06/24/17 07:34 06/24/17 07:34 INR, PTT INR 1.29 (0.82-1.09) H 06/24/17 07:34 Assessment/Plan Problem List - Problems (1) COPD exacerbation Code(s): J44.1 - CHRONIC OBSTRUCTIVE PULMONARY DISEASE W (ACUTE) EXACERBATION (2) Pneumonia Code(s): J18.9 - PNEUMONIA, UNSPECIFIED ORGANISM Qualifiers: Pneumonia type: due to unspecified organism Laterality: left Lung location: upper lobe of lung Qualified Code(s): J18.1 - Lobar pneumonia, unspecified organism (3) Cirrhosis Code(s): K74.60 - UNSPECIFIED CIRRHOSIS OF LIVER (4) DVT prophylaxis Code(s): [id number] - (5) Leukopenia Code(s): D72.819 - DECREASED WHITE BLOOD CELL COUNT, UNSPECIFIED Assessment/Plan 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
[2017-06-24] MEDS ORDERED: POTASSIUM CHLORIDE TABS 20 MEQ TABLET.ER (FP) PO SCH (12:00)
[2017-06-24 12:06] VITALS: BP 98/60; PULSE 70; TEMP 98.3
--- NOTE | 2017-06-24 12:19 | DS ---
Physical Exam: SUBJECTIVE: Patient seen and examined OBJECTIVE: Vital Signs Period Temp Pulse Resp BP Sys/Davis Pulse Ox Last 24 Hr 98.1 F-99.2 F 70-80 20-20 98-117/54-60 94-94 PHYSICAL EXAM GENERAL: The patient is awake, alert, and fully oriented, in no acute distress. HEAD: Normal with no signs of trauma. EYES: PERRL, extraocular movements intact, sclera anicteric, conjunctiva clear. ENT: Ears normal, nares patent, oropharynx clear without exudates, moist mucous membranes. NECK: Trachea midline, full range of motion, supple. LUNGS: Breath sounds equal, clear to auscultation bilaterally, no wheezes, no crackles, no accessory muscle use. HEART: Regular rate and rhythm, S1, S2 without murmur, rub or gallop. ABDOMEN: Soft, nontender, nondistended, normoactive bowel sounds, no guarding, no rebound, no hepatosplenomegaly, no masses. EXTREMITIES: 2+ pulses, warm, well-perfused, no edema. NEUROLOGICAL: Cranial nerves II through XII grossly intact. Normal speech, gait not observed. PSYCH: Normal mood, normal affect. SKIN: Warm, dry, normal turgor, no rashes or lesions noted. LABS Laboratory Results - last 24 hr 06/22/17 06/24/17 06/24/17 05:05 07:34 07:34 WBC 3.4 L RBC 3.83 Hgb 12.2 Hct 36.6 MCV 95.6 MCH 31.9 MCHC 33.4 RDW 15.7 H Plt Count 68 L MPV 9.7 Neutrophils % 71.1 Lymphocytes % 15.8 Monocytes % 10.6 H Eosinophils % 1.8 Basophils % 0.7 PT with INR 14.60 H INR 1.29 H Sodium Potassium Chloride Carbon Dioxide Anion Gap BUN Creatinine Random Glucose Calcium Magnesium Iron 42 TIBC 184 L Iron Saturation 23 Total Bilirubin Direct Bilirubin AST ALT Alkaline Phosphatase Total Protein Albumin 06/24/17 07:34 WBC RBC Hgb Hct MCV MCH MCHC RDW Plt Count MPV Neutrophils % Lymphocytes % Monocytes % Eosinophils % Basophils % PT with INR INR Sodium 139 Potassium 3.3 L Chloride 107 Carbon Dioxide 24 D Anion Gap 8 BUN 9 Creatinine 0.6 Random Glucose 114 H Calcium 7.6 L Magnesium 1.7 L Iron TIBC Iron Saturation Total Bilirubin 1.8 H Direct Bilirubin 0.7 H AST 28 ALT 20 Alkaline Phosphatase 91 Total Protein 5.8 L Albumin 2.5 L HOSPITAL COURSE: Date of Admission:06/20/17 Date of Discharge: 06/24/17 Minutes to complete discharge: 35 Discharge Summary Reason For Visit: PNEUMONIA Current Active Problems Ascites due to alcoholic cirrhosis (Acute) COPD exacerbation (Acute) Pneumonia (Acute) Splenomegaly (Acute) Condition: Guarded - Instructions Referrals: Alanis Elizondo MD [Primary Care Provider] - Disposition: AGAINST MEDICAL ADVICE - Home Medications Comprehensive Discharge Medication List: Ambulatory Orders Enoxaparin Sodium [Lovenox] 30 mg SQ DAILY 12/19/14 Furosemide [Lasix -] 40 mg PO DAILY 12/19/14 Lactulose 20 gm PO BID 12/19/14 Magnesium Oxide [Mag-Ox -] 400 mg PO BID 12/19/14 Nadolol 20 mg PO HS 12/19/14 Spironolactone 50 mg PO DAILY 12/19/14 Tiotropium [place] [Spiriva] 1 inh PO DAILY 12/19/14 Omeprazole Magnesium [Prilosec Otc] 20 mg PO DAILY 06/20/17 This patient is new to me today: No Emergency Visit: Yes ED Registration Date: 06/20/17 Care time: The patient presented to the Emergency Department on the above date and was hospitalized for further evaluation of their emergent condition. Critical Care patient: No - Discharge Referral Referred to [facility] No
[2017-06-24] MEDS ORDERED: MAGNESIUM 1GM/D5W - 1 GM/100 ML IVPB IVPB SCH (13:00)
[2017-06-25 14:11] LABS: HBSAG SCREEN Negative (Negative); HEP A AB, IGM Negative (Negative); HEP B CORE AB, TOT Negative (Negative)
== END 2017-06-24 12:15 | disposition left against medical advice (07) | DRG 720 ==
LOC: JER 08:11 → JERBED 13:10 → J4W 18:07
PROVIDERS: ADMIT Internal Medicine; ATTEND Nurse Practitioner Acute Care
DX: A41.9 Sepsis, unspecified organism (principal); J44.1 Chronic obstructive pulmonary disease with (acute) exacerbation; J18.9 Pneumonia, unspecified organism; I81 Portal vein thrombosis; R00.0 Tachycardia, unspecified; F10.10 Alcohol abuse, uncomplicated; J20.9 Acute bronchitis, unspecified; J44.0 Chronic obstructive pulmonary disease with (acute) lower respiratory infection; D69.6 Thrombocytopenia, unspecified; D72.818 Other decreased white blood cell count; E83.42 Hypomagnesemia; I85.00 Esophageal varices without bleeding; F17.200 Nicotine dependence, unspecified, uncomplicated; H66.90 Otitis media, unspecified, unspecified ear; R16.1 Splenomegaly, not elsewhere classified; E87.2 Acidosis; K70.31 Alcoholic cirrhosis of liver with ascites; K80.80 Other cholelithiasis without obstruction; D64.9 Anemia, unspecified; J98.11 Atelectasis; K72.90 Hepatic failure, unspecified without coma; I86.4 Gastric varices; D68.8 Other specified coagulation defects
CPT/HCPCS: 36415; 71010-TC; 74177-TC; 80048; 80053; 80076; 81003; 82105; 82140; 82150; 82550; 82728; 82803; 83540; 83550; 83605; 83690; 83735; 84439; 84443; 84484; 85025; 85027; 85610; 85730; 86038; 86140; 86301; 86704; 86706; 86708; 86803; 86850; 86900; 86901; 87040; 87086; 87186; 87340; 87804; 93005; 93010; 94640; 99285-25

== ENCOUNTER 2019-04-24 07:48 | Emergency (ER) | payer OTHER ==
[2019-04-24 08:05] VITALS: BP 97/64; PULSE 84; TEMP 98.7; BMI 16.4
--- NOTE | 2019-04-24 08:19 | PDOC ---
History of Present Illness - General Chief Complaint: Urinary Problem Stated Complaint: URINATE PROBLEMS Time Seen by Provider: 04/24/19 08:13 - History of Present Illness Initial Comments: 04/24/19 08:16 CHIEF COMPLAINT: burning with urination HISTORY OF PRESENT ILLNESS: 58 yo F with hx of COPD, hepatic cirrhosis, alcohol abuse, portal vein thrombosis presents to fast track with burning on urination. Patient reports that since yesterday she has felt urinary frequency and every time she urinates it funk. She denies any fever, chills, nausea, vomiting, diarrhea or any abdominal pain. No recent travel or sick contacts. PAST MEDICAL HISTORY: COPD, hepatic cirrhosis, alcohol abuse, portal vein thrombosis (on lovenox) FAMILY HISTORY: Denies SOCIAL HISTORY: hx of alcohol abuse SURGICAL HISTORY: Denies ALLERGIES: No known drug allergies REVIEW OF SYSTEMS General/Constitutional: Denies fever or chills. Denies weakness, weight change. HEENT: Denies change in vision. Denies ear pain or discharge. Denies sore throat. Cardiovascular: Denies chest pain or shortness of breath. Respiratory: Denies cough, wheezing, or hemoptysis. Gastrointestinal: Denies nausea, vomiting, diarrhea or constipation. Denies rectal bleeding. Genitourinary: Urinary frequency, dysuria. Musculoskeletal: Denies joint or muscle swelling or pain. Denies neck or back pain. Skin and breasts: Denies rash or easy bruising. Neurologic: Denies headache, vertigo, loss of consciousness, or loss of sensation. Psychiatric: Denies depression or anxiety. PHYSICAL EXAM General Appearance: Well-appearing, appropriately dressed. No apparent distress , no intoxication. HEENT: EOMI, PERRLA, normal ENT inspection, normal voice, TMs normal, pharynx normal. No conjunctival pallor. No photophobia, scleral icterus. Neck: Supple. Trachea midline. No tenderness, rigidity, carotid bruit, stridor , lymphadenopathy, or thyromegaly. Respiratory/Chest: Lungs CTAB. No shortness of breath, chest tenderness, respiratory distress, accessory muscle use. No crackles, rales, rhonchi, stridor , wheezing, dullness Cardiovascular: RRR. S1, S2. No JVD, murmur, bradycardia, tachycardia. Vascular Pulses: Dorsalis-Pedis (R): 2+, Dorsalis-Pedis (L): 2+ Gastrointestinal/Abdominal: Normal bowel sounds. Abdomen soft, non-distended. No tenderness or rebound tenderness. No organomegaly, pulsatile mass, guarding , hernia, hepatomegaly, splenomegaly. Lymphatic: No adenopathy, tenderness. Musculoskeletal/Extremities: Normal inspection. FROM of all extremities, normal capillary refill. Pelvis Stable. No CVA tenderness. No tenderness to extremities, pedal edema, swelling, erythema or deformity. Integumentary: Appropriate color, dry, warm. No cyanosis, erythema, jaundice or rash Neurologic: recruitment advertising manager II-XII intact. Fully oriented, alert. Appropriate mood/affect. Motor strength 5/5. No appreciable EOM palsy, facial droop or sensory deficit. 04/24/19 08:19 Past History - Past Medical History Allergies/Adverse Reactions: Allergies Allergy/AdvReac Type Severity Reaction Status Date / Time No Known Allergies Allergy Verified 04/24/19 07:56 Home Medications: Ambulatory Orders Enoxaparin Sodium [Lovenox] 30 mg SQ DAILY 12/19/14 Furosemide [Lasix -] 40 mg PO DAILY 12/19/14 Lactulose 20 gm PO BID 12/19/14 Magnesium Oxide [Mag-Ox -] 400 mg PO BID 12/19/14 Nadolol 20 mg PO HS 12/19/14 Spironolactone 50 mg PO DAILY 12/19/14 Tiotropium [place] [Spiriva] 1 inh PO DAILY 12/19/14 Omeprazole Magnesium [Prilosec Otc] 20 mg PO DAILY 06/20/17 Metronidazole 375 mg PO DAILY #7 capsule 04/24/19 Nitrofurantoin Monohyd/M-Cryst [Macrobid -] 100 mg PO BID #14 capsule 04/24/19 Anemia: No Asthma: Yes Cancer: No Cardiac Disorders: No CVA: No COPD: Yes CHF: No Dementia: No Diabetes: No GI Disorders: No Disorders: No HTN: No Hypercholesterolemia: No Liver Disease: Yes (CIRRHOSIS) Psychiatric Problems: Yes (anxiety) Seizures: No Thyroid Disease: No - Surgical History Abdominal Surgery: No Appendectomy: No Cardiac Surgery: No Cholecystectomy: No Lung Surgery: No Neurologic Surgery: No Orthopedic Surgery: No - Psycho Social/Smoking Cessation Hx Smoking Status: Yes Smoking History: Current some day smoker Have you smoked in the past 12 months: Yes Number of Cigarettes Smoked Daily: 4 Cigars Per Day: 0 Information on smoking cessation initiated: Yes 'Breaking Loose' booklet given: 06/20/17 Hx Alcohol Use: No Drug/Substance Use Hx: No Substance Use Type: None Hx Substance Use Treatment: No *Physical Exam - Vital Signs Last Vital Signs Temp Pulse Resp BP Pulse Ox 98.7 F 84 18 97/64 91 L 04/24/19 08:00 04/24/19 08:00 04/24/19 08:00 04/24/19 08:00 04/24/19 08:00 Medical Decision Making - Medical Decision Making 04/24/19 08:20 58 yo F with hx of COPD, hepatic cirrhosis, alcohol abuse, portal vein thrombosis presents to fast track with burning on urination. -UA, Ucx 04/24/19 09:24 Urine positive for trich. Will treat with metronidazole (adjusted for hepatic impairment). Discharge - Discharge Information Problems reviewed: Yes Clinical Impression/Diagnosis: Trichomoniasis, Urinary tract infection Condition: Stable Disposition: HOME - Admission No - Additional Discharge Information Prescriptions: Metronidazole 375 mg PO DAILY #7 capsule Nitrofurantoin Monohyd/M-Cryst [Macrobid -] 100 mg PO BID #14 capsule - Follow up/Referral Referrals: Polina Wright MD [Primary Care Provider] - - Patient Discharge Instructions Patient Printed Discharge Instructions: DI for Trichomoniasis, DI for Urinary Tract Infection (UTI) - Post Discharge Activity
[2019-04-24 09:25] LABS: URINE APPEARANCE TURBID
[2019-04-24 09:26] LABS: URINE COLOR ORANGE
[2019-04-24 09:27] LABS: URINE BILIRUBIN MODERATE (NEGATIVE); URINE GLUCOSE (UA) NEGATIVE (NEGATIVE); URINE KETONE NEGATIVE (NEGATIVE)
[2019-04-24 09:28] LABS: URINE LEUK ESTERASE 3+ (NEGATIVE); URINE NITRITE POSITIVE (NEGATIVE); URINE PROTEIN 3+ (NEGATIVE); URINE RBC 973.3 /hpf (0-4)
[2019-04-24 09:29] LABS: HYALINE CASTS 3352.2 /lpf (0-8); URINE BACTERIA 6193.7 /hpf (NEGATIVE)
== END 2019-04-24 09:46 | disposition home or self-care (01) ==
LOC: JER 07:48 → JERFT 07:48
DX: N39.0 Urinary tract infection, site not specified (principal); A59.09 Other urogenital trichomoniasis; B96.89 Other specified bacterial agents as the cause of diseases classified elsewhere; J44.9 Chronic obstructive pulmonary disease, unspecified; K74.60 Unspecified cirrhosis of liver; F10.10 Alcohol abuse, uncomplicated; Z87.19 Personal history of other diseases of the digestive system; K76.89 Other specified diseases of liver; F41.9 Anxiety disorder, unspecified; F17.210 Nicotine dependence, cigarettes, uncomplicated
CPT/HCPCS: 81003; 87086; 87186; 99281-25

== ENCOUNTER 2019-04-26 07:26 | Emergency (ER) | payer OTHER ==
[2019-04-26 07:40] VITALS: TEMP 98.2; BMI 16.4
--- NOTE | 2019-04-26 08:14 | PDOC ---
History of Present Illness - General Chief Complaint: Back Pain Stated Complaint: BACK PAIN Time Seen by Provider: 04/26/19 08:01 - History of Present Illness Initial Comments: Ms. Bess is a 58 y/o female with PMH significant for COPD, cirrhosis, ETOH, portal vein thrombosis presenting today with left lower back pain. Reports that she was cleaning her house yesterday when she felt a sharp pain over the left lower back, left buttocks, and left upper thigh. Reports that walking and movement sometimes makes the pain worse. Denies changes in bowel/bladder. Denies weakness or loss of sensation in the legs. Denies chest pain/shortness of breath. Denies headache/dizziness. Denies vision changes. Past History - Past Medical History Allergies/Adverse Reactions: Allergies Allergy/AdvReac Type Severity Reaction Status Date / Time No Known Allergies Allergy Verified 04/26/19 07:34 Home Medications: Ambulatory Orders Enoxaparin Sodium [Lovenox] 30 mg SQ DAILY 12/19/14 Furosemide [Lasix -] 40 mg PO DAILY 12/19/14 Lactulose 20 gm PO BID 12/19/14 Nadolol 20 mg PO HS 12/19/14 Spironolactone 50 mg PO DAILY 12/19/14 Omeprazole Magnesium [Prilosec Otc] 20 mg PO DAILY 06/20/17 Nitrofurantoin Monohyd/M-Cryst [Macrobid -] 100 mg PO BID #14 capsule 04/24/19 Aclidinium [place] [Tudorza Pressair] 1 puff IH BID 04/26/19 Albuterol Sulfate Inhaler - [Ventolin Hfa Inhaler -] 1 - 2 inh PO Q4H 04/26/19 Cyclobenzaprine HCl [Flexeril 10 mg] 10 mg PO BID PRN 5 Days #10 tablet Diphenhydramine [Benadryl -] 50 mg PO DAILY PRN 04/26/19 Lactose-Reduced Food [Ensure Liquid] 237 ml PO TID 04/26/19 Magnesium Oxide 400 mg PO DAILY 04/26/19 Sodium Chloride Inhalation [Normal Saline For Inhalation -] 3 ml IH Q6H PRN 10/09 Tiotropium [place] [Spiriva Respimat] 2 puff IH DAILY 04/26/19 Anemia: No Asthma: Yes Cancer: No Cardiac Disorders: No CVA: No COPD: Yes CHF: No Dementia: No Diabetes: No GI Disorders: No Disorders: No HTN: No Hypercholesterolemia: No Liver Disease: Yes (CIRRHOSIS) Psychiatric Problems: Yes (anxiety) Seizures: No Thyroid Disease: No - Surgical History Abdominal Surgery: No Appendectomy: No Cardiac Surgery: No Cholecystectomy: No Lung Surgery: No Neurologic Surgery: No Orthopedic Surgery: No - Immunization History Immunization Up to Date: Yes - Psycho Social/Smoking Cessation Hx Smoking Status: Yes Smoking History: Current every day smoker Have you smoked in the past 12 months: Yes Number of Cigarettes Smoked Daily: 10 Cigars Per Day: 0 Information on smoking cessation initiated: No 'Breaking Loose' booklet given: 06/20/17 Hx Alcohol Use: No Drug/Substance Use Hx: No Substance Use Type: None Hx Substance Use Treatment: No Review of Systems - Review of Systems Comments:: GENERAL/CONSTITUTIONAL: No fever or chills. No weakness._ HEAD, EYES, EARS, NOSE AND THROAT: No change in vision. No change in hearing. No sore throat._ CARDIOVASCULAR: No chest pain or shortness of breath_ RESPIRATORY: Denies cough, hemoptysis_ GASTROINTESTINAL: No nausea, vomiting, diarrhea or constipation._ GENITOURINARY: No dysuria, frequency, or change in urination._ MUSCULOSKELETAL: Reports low back pain, left buttocks pain, left upper thigh pain. SKIN: No rash_ NEUROLOGIC: No headache, vertigo, loss of consciousness, or change in strength/ sensation._ ENDOCRINE: No increased thirst. No abnormal weight change_ HEMATOLOGIC/LYMPHATIC: No anemia, easy bleeding, or history of blood clots._ ALLERGIC/IMMUNOLOGIC: No hives or skin allergy._ *Physical Exam - Vital Signs Last Vital Signs Temp Pulse Resp BP Pulse Ox 98.2 F 77 17 107/61 87 L 04/26/19 07:35 04/26/19 07:35 04/26/19 07:35 04/26/19 07:35 04/26/19 07:35 - Physical Exam Comments: GENERAL: Awake, alert, and oriented to person/place/time, in no acute distress_ HEAD: No signs of trauma, normocephalic, atraumatic _ EYES: PERRLA, EOMI, sclera anicteric, conjunctiva clear_ ENT: Hearing grossly normal, nares patent, oropharynx clear without exudates. No uvular deviation. Moist mucosa_ NECK: Normal ROM, supple, no lymphadenopathy, JVD, or masses_ LUNGS: No distress, speaks in full sentences, clear to auscultation bilaterally _ HEART: Regular rate and rhythm, normal S1 and S2, no murmurs appreciated, peripheral pulses normal and equal bilaterally._ ABDOMEN: Soft, nontender, normoactive bowel sounds. No guarding, no rebound. No masses_ EXTREMITIES: LUE/RUE: Normal inspection, Normal range of motion, no edema. No clubbing or cyanosis_ RLE: Inspection: No erythema or ecchymosis. No tenderness, no obvious abnormalities, no open wounds. Compartments soft and compressible, pain within proportion, no pain to passive stretch, straight leg, hip flexion, or external rotation of hip. Knee stable to anterior/posterior drawer and varus/valgus stress Sensation: intact throughout upper and lower leg Motor: 5/5 EHL, 5/5 FHL, 5/5 TA, 5/5GS, 5/5 Quad, 5/5 Ham Vascular: 2+ DP/PT, all toes BCR <2 sec LLE: Inspection: No erythema or ecchymosis. TTP over left buttocks and left upper thigh, no obvious abnormalities, no open wounds. Compartments soft and compressible, pain within proportion. Intermittent pain to straight leg and flexion of hip. No pain on external rotation of hip. Knee stable to anterior/posterior drawer and varus/valgus stress Sensation: intact throughout upper and lower leg Motor: 5/5 EHL, 5/5 FHL, 5/5 TA, 5/5GS, 5/5 Quad, 5/5 Ham Vascular: 2+ DP/PT, all toes BCR <2 sec NEUROLOGICAL: Cranial nerves II through XII grossly intact. Normal speech, normal gait, no focal sensorimotor deficits. No signs of saddle sensory loss. SKIN: Warm, Dry, normal turgor, no rashes or lesions noted_ Medical Decision Making - Medical Decision Making 58F hx of COPD cirrhosis presenting with left buttocks and left upper thigh pain. -toradol IM -flexeril 04/26/19 10:01 Pt reassessed. Reports that pain has significantly improved. She has an appt with PCP on . SpO2 94% on room air. Plan to d/c home with flexril, f/u PCP on . Discharge - Discharge Information Problems reviewed: Yes Clinical Impression/Diagnosis: Muscle strain Condition: Stable Disposition: HOME - Admission No - Additional Discharge Information Prescriptions: Cyclobenzaprine HCl [Flexeril 10 mg] 10 mg PO BID PRN 5 Days #10 tablet PRN Reason: Muscle Spasms - Follow up/Referral Referrals: Polina Wright MD [Primary Care Provider] - - Patient Discharge Instructions Additional Instructions: Please take Flexeril (muscle relaxant) 10 mg twice per day as needed for your pain. Please keep your follow up appointment with your primary care physician on . If you experience any new, worsening, or concerning symptoms, including loss of sensation in the legs, weakness, loss of bowel or bladder control, fall, or any other concerns, please return to the emergency department. - Post Discharge Activity
--- NOTE | 2019-04-26 08:38 | PDOC ---
Attending Attestation - Resident Resident Name: StefnaJonny - ED Attending Attestation I have performed the following: I have examined & evaluated the patient, The case was reviewed & discussed with the resident, I agree w/resident's findings & plan, Exceptions are as noted - HPI HPI: 04/26/19 08:37 58y F here yesterday for a uti, presents with a sharp back pain L buttock pain radiating down the posterior thigh when doing house work. Pain is worse when she is ambulating and moving. Patient has never had this pain before she denies any numbness, tingling, weakness, urinary or bowel incontinence, fever, chills. There have been no falls. Patient took Motrin last night however the pain was not significantly relieved. The patient denies any chest pain, shortness of breath, dyspnea on exertion, cough, fever, chills. Physicial Exam: GENERAL: The patient is awake, alert, and fully oriented, Nontoxic - in no acute distress. HEAD: Normocephalic, atraumatic. LUNGS: Breath sounds equal, clear to auscultation bilaterally. No wheezes, no rhonchi, no rales. No respiratory distress HEART: Regular rate and rhythm, normal S1 and S2 without murmur, rub or gallop. ABDOMEN: Soft, nontender, No guarding, no rebound. No CVA tenderness EXTREMITIES: Normal range of motion, no edema. Focal tenderness at the glueus mximus/sciatic nerve region NEUROLOGICAL: No facial assymetry, Normal speech, PSYCH: Normal mood, normal affect. SKIN: Warm, Dry, normal turgor, Suspect that the patient is due to muscle strain/sciatica. We will give the patient Toradol and Flexeril. The patient was noted to be hypoxic to 87 on room air at triage she was placed on oxygen. During my assessment I removed the patient from oxygen and her saturation has been 94. Additionally the patient has no respiratory complaints and has clear lungs. Suspect the 94 may be her baseline - Physicial Exam PE: 04/26/19 10:08 see above - Medical Decision Making 04/26/19 10:08 Patient is feeling better she is ambulatory will discharge patient with supportive care at home Return precautions were discussed Patient sat PT saturation is improved to baseline
[2019-04-26] MEDS ORDERED: KETOROLAC TROMETHAMINE 30 MG/1 ML VIAL IM ONE (09:09)
[2019-04-26] MEDS ORDERED: CYCLOBENZAPRINE HCL 10 MG TABLET (FP) PO ONE (09:09)
[2019-04-26] MEDS ORDERED: KETOROLAC TROMETHAMINE 30 MG/1 ML VIAL ONE (09:16)
[2019-04-26] MEDS ORDERED: CYCLOBENZAPRINE HCL 10 MG TABLET (FP) ONE (09:16)
[2019-04-26 10:32] VITALS: BP 95/56; PULSE 74
== END 2019-04-26 10:30 | disposition home or self-care (01) ==
LOC: JER 07:26
PROC: 3E0233Z Introduction of Anti-inflammatory into Muscle, Percutaneous Approach (ICD-10-PCS; principal; 2019-04-26)
DX: T14.8XXA Other injury of unspecified body region, initial encounter (principal); X50.9XXA Other and unspecified overexertion or strenuous movements or postures, initial encounter; Y93.E9 Activity, other interior property and clothing maintenance; Y92.038 Other place in apartment as the place of occurrence of the external cause; Y99.8 Other external cause status; I10 Essential (primary) hypertension; J44.9 Chronic obstructive pulmonary disease, unspecified; J45.998 Other asthma; K74.60 Unspecified cirrhosis of liver; F41.9 Anxiety disorder, unspecified; F17.210 Nicotine dependence, cigarettes, uncomplicated
CPT/HCPCS: 96372; 99282-25

== ENCOUNTER 2019-06-17 05:47 | Emergency (ER) | payer OTHER ==
[2019-06-17 06:00] VITALS: PULSE 76; BMI 16.6
[2019-06-17] MEDS ORDERED: ALBUTEROL SO4 2.5/IPRATROPIUM 0.5 INH SOL 3 ML VIAL.NEB. NEB ONE ×2 (07:53→08:08)
[2019-06-17] MEDS ORDERED: methylPREDNISolone NA SUCC 125 MG/2 ML VIAL IVPUSH ONE (07:55)
[2019-06-17] MEDS ORDERED: methylPREDNISolone NA SUCC 125 MG/2 ML VIAL ONE (08:08)
--- NOTE | 2019-06-17 08:08 | PDOC ---
*Physical Exam - Vital Signs Last Vital Signs Temp Pulse Resp BP Pulse Ox 97.8 F 76 20 92/44 L 95 06/17/19 05:54 06/17/19 05:54 06/17/19 05:54 06/17/19 05:54 06/17/19 06:13 - Physical Exam General Appearance: Yes: Nourished, Appropriately Dressed, Thin HEENT: positive: EOMI, ALICE, Normal ENT Inspection, Pharynx Normal Neck: positive: Trachea midline, Normal Thyroid, Supple Respiratory/Chest: positive: Wheezing (Wheezing on the left lung) Cardiovascular: positive: Regular Rhythm, Regular Rate, S1, S2. negative: Murmur, Gallop/S3, Gallop/S4 Vascular Pulses: Dorsalis-Pedis (R): 2+, [place]-Pedis (L): 2+ Gastrointestinal/Abdominal: positive: Normal Bowel Sounds, Soft, Tenderness ( perumbilical tenderness on deep palpation ) Neurologic: positive: Fully Oriented, Alert, Normal Mood/Affect Heart Score/ECG Review - History History: Slightly suspicious ED Treatment Course - RADIOLOGY Radiology Studies Ordered: Category Date Time Status CXRPORT [CHEST X-RAY PORTABLE*] [RAD] Stat Radiology 06/17/19 07:52 Ordered Medical Decision Making - Medical Decision Making 58 y/o F, pmh of hepatic cirrhosis 2/2 to alcohol abuse, portal vein thrombosis on Lovenox, copd, previous admission for pneumonia presents to the ED c/o dry coughing and shortness of breath of one day duration #SOB + Cough likely 2/2 to mild COPD exacerbation start dounebs x3 Solumedrol 125 mcg CXR flu swab ordered cbc, cmp, trops ekg O2 on NC 2L monitor vitals 06/17/19 08:05 Discharge - Follow up/Referral Referrals: Polina Wright MD [Primary Care Provider] - - Patient Discharge Instructions - Post Discharge Activity
--- NOTE | 2019-06-17 08:10 | PDOC ---
History of Present Illness - General Chief Complaint: Shortness of Breath Stated Complaint: COUGH/S.O.B. Time Seen by Provider: 06/17/19 07:30 History Source: Patient Exam Limitations: No Limitations - History of Present Illness Initial Comments: 58 y/o F, pmh of hepatic cirrhosis 2/2 to alcohol abuse, portal vein thrombosis on Lovenox, copd, previous admission for pneumonia presents to the ED c/o nonproductive dry coughing and shortness of breath of one day duration. Pt reports that she was at a [employer] party where people were smoking hookah, which she attributes as the cause of her cough. She has been coughing continuously since then. She tried her home dose of ventolin and spiriva, which improved her symptoms for a few minutes before it worsened once again. Denies f/ c/n/v/d/chest pain, recent travels, recent sickness, recent sick contacts. 06/17/19 08:09 06/17/19 08:13 06/17/19 08:17 Associated Symptoms: reports: denies symptoms, cough, shortness of breath. denies: chest pain, diaphoresis, fever/chills, headaches, nausea/vomiting Past History - Travel Traveled outside of the country in the last 30 days: No Close contact w/someone who was outside of country & ill: No - Past Medical History Allergies/Adverse Reactions: Allergies Allergy/AdvReac Type Severity Reaction Status Date / Time No Known Allergies Allergy Verified 06/17/19 05:58 Home Medications: Ambulatory Orders Enoxaparin Sodium [Lovenox] 30 mg SQ DAILY 12/19/14 Furosemide [Lasix -] 40 mg PO DAILY 12/19/14 Lactulose 20 gm PO BID 12/19/14 Nadolol 20 mg PO HS 12/19/14 Spironolactone 50 mg PO DAILY 12/19/14 Omeprazole Magnesium [Prilosec Otc] 20 mg PO DAILY 06/20/17 Nitrofurantoin Monohyd/M-Cryst [Macrobid -] 100 mg PO BID #14 capsule 04/24/19 Aclidinium [place] [Tudorza Pressair] 1 puff IH BID 04/26/19 Albuterol Sulfate Inhaler - [Ventolin Hfa Inhaler -] 1 - 2 inh PO Q4H 04/26/19 Cyclobenzaprine HCl [Flexeril 10 mg] 10 mg PO BID PRN 5 Days #10 tablet Diphenhydramine [Benadryl -] 50 mg PO DAILY PRN 04/26/19 Lactose-Reduced Food [Ensure Liquid] 237 ml PO TID 04/26/19 Magnesium Oxide 400 mg PO DAILY 04/26/19 Sodium Chloride Inhalation [Normal Saline For Inhalation -] 3 ml IH Q6H PRN 10/09 Tiotropium [place] [Spiriva Respimat] 2 puff IH DAILY 04/26/19 Tiotropium [place] [Spiriva Respimat] 2.5 gm IH DAILY #1 mist.inhal 04/26/19 Anemia: No Asthma: Yes Cancer: No Cardiac Disorders: No CVA: No COPD: Yes CHF: No Dementia: No Diabetes: No GI Disorders: No Disorders: No HTN: No Hypercholesterolemia: No Liver Disease: Yes (CIRRHOSIS) Psychiatric Problems: Yes (anxiety) Seizures: No Thyroid Disease: No - Surgical History Abdominal Surgery: No Appendectomy: No Cardiac Surgery: No Cholecystectomy: No Lung Surgery: No Neurologic Surgery: No Orthopedic Surgery: No - Immunization History Immunization Up to Date: Yes - Psycho Social/Smoking Cessation Hx Smoking Status: Yes Smoking History: Current every day smoker Have you smoked in the past 12 months: Yes Number of Cigarettes Smoked Daily: 5 Cigars Per Day: 0 Information on smoking cessation initiated: Yes 'Breaking Loose' booklet given: 06/20/17 Hx Alcohol Use: No Drug/Substance Use Hx: No Substance Use Type: None Hx Substance Use Treatment: No Review of Systems - Review of Systems Able to Perform ROS?: Yes Is the patient limited Divehi proficient: No Constitutional: Yes: Symptoms Reported, Weight Stable. No: Chills, Diaphoresis , Fever HEENTM: Yes: Symptoms Reported. No: Blurred Vision, Difficulty Swallowing Respiratory: Yes: Symptoms reported, Cough, Shortness of Breath, Wheezing. No: Productive cough Cardiac (ROS): Yes: Symptoms Reported. No: Chest Pain, Chest Tightness ABD/GI: Yes: Symptoms Reported. No: Abdominal Distended, Diarrhea, Nausea, Vomiting : Yes: Symptoms Reported Musculoskeletal: Yes: Symptoms Reported Neurological: Yes: Symptoms reported. No: Headache, Numbness *Physical Exam - Vital Signs Last Vital Signs Temp Pulse Resp BP Pulse Ox 97.8 F 76 20 92/44 L 95 06/17/19 05:54 06/17/19 05:54 06/17/19 05:54 06/17/19 05:54 06/17/19 06:13 - Physical Exam General Appearance: Yes: Nourished, Appropriately Dressed, Thin HEENT: positive: EOMI, ALICE, Normal ENT Inspection, Pharynx Normal Neck: positive: Trachea midline, Normal Thyroid, Supple Respiratory/Chest: positive: Wheezing (wheezing on left lung ) Cardiovascular: positive: Regular Rhythm, Regular Rate, S1, S2. negative: Murmur, Gallop/S3, Gallop/S4 Vascular Pulses: Dorsalis-Pedis (R): 2+, Doralis-Pedis (L): 2+ Gastrointestinal/Abdominal: positive: Normal Bowel Sounds, Soft, Tenderness ( periumbilical tenderness) Extremity: negative: Cyanosis, Swelling Neurologic: positive: Fully Oriented, Alert, Normal Mood/Affect ED Treatment Course - LABORATORY CBC & Chemistry Diagram: 06/17/19 08:03 06/17/19 08:03 - RADIOLOGY Radiology Studies Ordered: Category Date Time Status CXRPORT [CHEST X-RAY PORTABLE*] [RAD] Stat Radiology 06/17/19 07:52 Ordered Medical Decision Making - Medical Decision Making 58 y/o F, pmh of hepatic cirrhosis 2/2 to alcohol abuse, portal vein thrombosis on Lovenox, copd, previous admission for pneumonia presents to the ED c/o dry coughing and shortness of breath of one day duration #SOB + Cough likely 2/2 to mild COPD exacerbation start dounebs x3 Solumedrol 125 mcg CXR ABG flu swab ordered cbc, cmp, trops ekg O2 on NC 2L monitor vitals 06/17/19 08:22 Discharge - Discharge Information Problems reviewed: Yes Clinical Impression/Diagnosis: COPD exacerbation Condition: Improved Disposition: HOME - Admission No - Follow up/Referral Referrals: Polina Wright MD [Primary Care Provider] - Jude Segura [Non Staff, Medical] - - Patient Discharge Instructions Patient Printed Discharge Instructions: DI for Chronic Obstructive Pulmonary Disease, Smoking Cessation Additional Instructions: You were seen in the Emergency room for difficulty breathing and coughing. While you were in the emergency room, we evaluated you with lab work, blood work , and imaging including x rays of your Chest. We found that your symptoms were caused by an exacerbation of your COPD. We treated you with medications are your symptoms improved significantly. To complete the treatment of your COPD exacerbation, please take the following medication Prednisone 60 mg for 4 days Please follow up with your customer consultant, Dr. Segura in 1 week Please follow up with your primary care physician, Polina Pablo, in 1 week Return to the emergency room, if you experience worsening of your symptoms, difficulty breathing, shortness of breath, chest pain or any worsening of your condition. - Post Discharge Activity
[2019-06-17 08:23] LABS: HEMATOCRIT 35.3 % (32.4-45.2); HEMOGLOBIN 11.6 GM/dL (10.7-15.3); MEAN CELL VOLUME 100.2 fl (80-96); MEAN PLT VOLUME 9.6 fl (7.5-11.1); PLATELET COUNT 53 K/MM3 (134-434); RBC 3.52 M/mm3 (3.60-5.2); RDW 15.4 % (11.6-15.6)
[2019-06-17 08:31] LABS: WHITE BLOOD COUNT 1.9 K/mm3 (4.0-10.0)
[2019-06-17 08:46] LABS: ALBUMIN 2.2 g/dl (3.4-5.0); ALK PHOS 161 U/L (45-117); ANION GAP 6 MMOL/L (8-16); BILIRUBIN,TOTAL 1.4 mg/dL (0.2-1); CALCIUM 7.6 mg/dL (8.5-10.1); CHLORIDE 113 mmol/L (98-107); CO2 20 mmol/L (21-32); CREATININE 0.7 mg/dL (0.55-1.3); GLUCOSE,RANDOM 82 mg/dL (74-106); POTASSIUM 3.7 mmol/L (3.5-5.1); SGOT/AST 42 U/L (15-37); SGPT/ALT 25 U/L (13-61); SODIUM 140 mmol/L (136-145); TOT PROT 6.8 g/dl (6.4-8.2)
--- NOTE | 2019-06-17 09:57 | PDOC ---
Attending Attestation - Resident Resident Name: Seymour Caceres - ED Attending Attestation I have performed the following: I have examined & evaluated the patient, The case was reviewed & discussed with the resident, I agree w/resident's findings & plan, Exceptions are as noted - HPI HPI: 06/17/19 [id number] years old hepatic cirrhosis secondary to alcohol abuse portal vein thrombosis on Lovenox pneumonia history of pancytopenia in the past follows with hematology presents to the ED status post smoking yesterday with COPD exacerbation wheezing coughing shortness of breath symptoms are moderate persistent constant no exacerbating or alleviating factors. - Physicial Exam PE: 06/17/19 10:56 Vitals: Triage Vital signs reviewed General Appearance: No acute distress, well nourished well developed, Cardiac: Regular rate and rhythym, no murmurs, no rubs, no gallops, Lungs: Wheezing bilaterally abdomen: Soft, non distended, normal bowel sounds, non tender to palpation Extremities: Full range of motion to all extremities, no cyanosis, clubbing, or edema Skin: Warm and dry, no rashes or lesions, no rash, no petechiae Psych: Normal mood, normal affect - Medical Decision Making 06/17/19 10:56 58 years old presents with COPD exacerbation no evidence of pneumonia on x-ray Feels better after nebs Low WBC this was discussed with patient's laboratory director patient is not neutropenic she will follow-up within 1 week for repeat labs given COPD exacerbation we will treat with continued steroids nebs 2-day course of prednisone Findings, need for follow-up and strict return instructions discussed with patient.
[2019-06-17 10:39] LABS: ANISOCYTOSIS 1+; MACROCYTOSIS 1+; OVALOCYTE 1+; PLATELET ESTIMATE DECREASED
[2019-06-17 11:04] VITALS: BP 110/58; TEMP 98.3
[2019-06-17 11:14] LABS: ARTERIAL BLD GAS O2 SATURATION 88.1 % (95-98); ARTERIAL BLOOD GAS BASE EXCESS -3.2 meq/l (-2-2); ARTERIAL BLOOD GAS PCO2 28.2 mmHg (35-45); ARTERIAL BLOOD GAS pH 7.45 (7.35-7.45)
[2019-06-17 11:15] LABS: ALLENS TEST POSITIVE
--- NOTE | 2019-06-17 12:53 | EKG ---
Test Reason : Blood Pressure : / mmHG Vent. Rate : 066 BPM Atrial Rate : 066 BPM P-R Int : 122 ms QRS Dur : 088 ms QT Int : 452 ms P-R-T Axes : 066 076 054 degrees QTc Int : 473 ms NORMAL SINUS RHYTHM NORMAL ECG WHEN COMPARED WITH ECG OF 20-JUN-2017 08:51, VENT. RATE HAS DECREASED BY 40 BPM Confirmed by BRANDIE ALTMAN MD ([id number]) on 06/17/2019 12:52:55 PM Referred By: Confirmed By:BRANDIE ALTMAN MD
[2019-06-17 22:52] LABS: CARBOXYHEMOGLOBIN 1.5 % (0-2)
== END 2019-06-17 11:11 | disposition home or self-care (01) ==
LOC: JER 05:47
PROC: 3E0F7GC Introduction of Other Therapeutic Substance into Respiratory Tract, Via Natural or Artificial Opening (ICD-10-PCS; principal; 2019-06-17)
PROC: 3E0333Z Introduction of Anti-inflammatory into Peripheral Vein, Percutaneous Approach (ICD-10-PCS; 2019-06-17)
DX: J44.1 Chronic obstructive pulmonary disease with (acute) exacerbation (principal); F17.210 Nicotine dependence, cigarettes, uncomplicated; Z77.22 Contact with and (suspected) exposure to environmental tobacco smoke (acute) (chronic); J45.998 Other asthma; I81 Portal vein thrombosis; Z79.01 Long term (current) use of anticoagulants; F41.9 Anxiety disorder, unspecified
CPT/HCPCS: 36415; 36600; 71045-TC-FY; 80053; 82375; 82803; 83050; 84484; 85027; 87804; 93005; 93010; 99284-25

== ENCOUNTER 2020-11-02 10:36 | Emergency (ER) | payer OTHER ==
[2020-11-02 10:41] VITALS: BP 134/81; PULSE 95; TEMP 98.5; BMI 17.7
[2020-11-02 11:46] LABS: EPI CELLS 19 /uL (0-25.1); HYALINE CASTS 3 /uL (0-3.1); PH,URINE 7.5 (5.0-8.0); URINE APPEARANCE TURBID; URINE BACTERIA 344 /uL (0-1359); URINE BILIRUBIN NEGATIVE (NEGATIVE); URINE COLOR DK YELLOW; URINE GLUCOSE (UA) NEGATIVE (NEGATIVE); URINE KETONE TRACE (NEGATIVE); URINE LEUK ESTERASE 3+ (NEGATIVE); URINE NITRITE NEGATIVE (NEGATIVE); URINE PROTEIN 1+ (NEGATIVE); URINE WBC 3023 /uL (0-25.8)
[2020-11-02 13:23] LABS: URINE CRYSTALS 0-2 /hpf
== END 2020-11-02 12:03 | disposition home or self-care (01) ==
LOC: JERFT 10:36
DX: N30.01 Acute cystitis with hematuria (principal)
CPT/HCPCS: 81003; 87086; 99283-25

== ENCOUNTER 2021-03-29 07:37 | Inpatient (IN) | payer OTHER ==
[2021-03-29] MEDS ORDERED: ACETAMINOPHEN 1000 MG/100 ML VIAL IVPB ONE (08:16)
[2021-03-29] MEDS ORDERED: SODIUM CHLORIDE 0.9% 1000 ML INFUS.BAG IV ONE (08:16)
[2021-03-29] MEDS ORDERED: ACETAMINOPHEN INJECTION 100 ML IVPB ONE (08:51)
[2021-03-29 10:00] LABS: BASO % 1.1 % (0-2.0); EOS % 2.2 % (0-4.5); HEMATOCRIT 32.8 % (32.4-45.2); HEMOGLOBIN 11.1 GM/dL (10.7-15.3); LYMPH % 17.4 % (8-40); MCH 34.4 pg (25.7-33.7); MCHC 33.9 g/dl (32.0-36.0); MEAN CELL VOLUME 101.3 fl (80-96); MONO % 13.1 % (3.8-10.2); NEUT % 66.2 % (42.8-82.8); PLATELET COUNT 62 10^3/uL (134-434); RBC 3.24 M/mm3 (3.60-5.2); RDW 16.2 % (11.6-15.6); WHITE BLOOD COUNT 2.1 K/mm3 (4.0-10.0)
[2021-03-29 10:19] LABS: CHLORIDE 112 mmol/L (98-107); SODIUM 138 mmol/L (136-145)
[2021-03-29 10:23] LABS: ALBUMIN 1.6 g/dl (3.4-5.0); ANION GAP 6 MMOL/L (8-16); BLOOD UREA NITROGEN 10.4 mg/dL (7-18); CALCIUM 7.5 mg/dL (8.5-10.1); CO2 19 mmol/L (21-32); GLUCOSE,RANDOM 76 mg/dL (74-106)
[2021-03-29 10:26] LABS: CREATININE 0.5 mg/dL (0.55-1.3); SGOT/AST 38 U/L (15-37); SGPT/ALT 23 U/L (13-61)
[2021-03-29 10:28] LABS: BILIRUBIN,TOTAL 2.1 mg/dL (0.2-1); TOT PROT 7.2 g/dl (6.4-8.2)
[2021-03-29 10:29] LABS: ALK PHOS 144 U/L (45-117)
[2021-03-29] MEDS ORDERED: DEXAMETHASONE SOD PHOSPHATE 10 MG/1 ML VIAL IVPUSH ONE (10:51)
[2021-03-29] MEDS ORDERED: DEXAMETHASONE SOD PHOSPHATE 4 MG/1 ML VIAL ONE (10:57)
[2021-03-29] MEDS ORDERED: TIOTROPIUM BROMIDE 2.5 MCG (SPIRIVA) RESPIMAT INHALER IH SCH (11:43)
[2021-03-29] MEDS ORDERED: ALBUTEROL SO4 HFA INHALER IH PRN (11:43)
[2021-03-29] MEDS ORDERED: DOXYCYCLINE INJECTION 100 MG in DEXTROSE 5%-WATER 100 ML IVPB SCH (13:00)
[2021-03-29] MEDS ORDERED: CEFTRIAXONE 1 GM in DEXTROSE 5%-WATER - 50 ML IVPB SCH (13:00)
[2021-03-29] MEDS ORDERED: LACTULOSE 20 GM/30 ML UDC (FOR ORAL USE ONLY) ONE (14:34)
[2021-03-29] MEDS ORDERED: DOXYCYCLINE HYCLATE 100 MG VIAL ONE ×2 (14:35→20:57)
[2021-03-29] MEDS ORDERED: PANTOPRAZOLE 40 MG TABLET ONE (14:35)
[2021-03-29] MEDS: PANTOPRAZOLE 40 MG TABLET PO SCH (14:57)
[2021-03-29] MEDS: LACTULOSE 20 GM/30 ML UDC (FOR ORAL USE ONLY) PO SCH ×2 (14:57→21:22)
[2021-03-29] MEDS: DOXYCYCLINE INJECTION 100 MG in DEXTROSE 5%-WATER 100 ML IVPB SCH ×2 (14:57→21:22)
[2021-03-29 20:13] VITALS: BMI 17.7
[2021-03-29] MEDS: FLUTICASONE/SALMETEROL 100 MCG/50 MCG DISKUS IH SCH ×2 (20:21→22:58)
[2021-03-29] MEDS ORDERED: DEXTROSE 5%-WATER 100 ML IVPB ONE (20:57)
[2021-03-29] MEDS: NADOLOL 20 MG TABLET (FP) PO SCH (22:32)
[2021-03-30] MEDS: LACTULOSE 20 GM/30 ML UDC (FOR ORAL USE ONLY) PO SCH ×2 (05:12→13:24)
[2021-03-30 07:00] LABS: BASO % 0.3 % (0-2.0); HEMATOCRIT 32.4 % (32.4-45.2); HEMOGLOBIN 10.8 GM/dL (10.7-15.3); LYMPH % 8.4 % (8-40); MCH 33.5 pg (25.7-33.7); MCHC 33.5 g/dl (32.0-36.0); MEAN PLT VOLUME 8.7 fl (7.5-11.1); MONO % 6.7 % (3.8-10.2); NEUT % 84.6 % (42.8-82.8); PLATELET COUNT 48 10^3/uL (134-434); RBC 3.24 M/mm3 (3.60-5.2); RDW 16.3 % (11.6-15.6); WHITE BLOOD COUNT 3.4 K/mm3 (4.0-10.0)
[2021-03-30 07:12] LABS: INR 1.59 (0.83-1.09); PROTHROMBIN TIME (PATIENT) 19.6 SEC (9.7-13.0)
[2021-03-30 07:40] LABS: ALBUMIN 1.5 g/dl (3.4-5.0); BLOOD UREA NITROGEN 15.6 mg/dL (7-18); CALCIUM 8.3 mg/dL (8.5-10.1); MAGNESIUM 2.1 mg/dL (1.8-2.4)
[2021-03-30 07:43] LABS: CREATININE 0.6 mg/dL (0.55-1.3)
[2021-03-30 07:44] LABS: PHOSPHOROUS 2.6 mg/dL (2.5-4.9)
[2021-03-30 07:45] LABS: BILIRUBIN,TOTAL 1.4 mg/dL (0.2-1); TOT PROT 6.8 g/dl (6.4-8.2)
[2021-03-30] MEDS ORDERED: DEXTROSE 5%-WATER 100 ML IVPB ONE (09:38)
[2021-03-30] MEDS ORDERED: DOXYCYCLINE HYCLATE 100 MG VIAL ONE (09:38)
[2021-03-30] MEDS ORDERED: PT OWN MED DRAWER 7, Y5N ONE (09:39)
[2021-03-30] MEDS: DOXYCYCLINE INJECTION 100 MG in DEXTROSE 5%-WATER 100 ML IVPB SCH (09:49)
[2021-03-30] MEDS: SPIRONOLACTONE 25 MG TABLET PO SCH (09:50)
[2021-03-30] MEDS: PANTOPRAZOLE 40 MG TABLET PO SCH (09:50)
[2021-03-30] MEDS: predniSONE 20 MG TABLET (UD) PO SCH (09:50)
[2021-03-30] MEDS: FLUTICASONE/SALMETEROL 100 MCG/50 MCG DISKUS IH SCH ×2 (09:54→21:53)
[2021-03-30] MEDS ORDERED: DEXAMETHASONE SOD PHOSPHATE 4 MG/1 ML VIAL IVPUSH SCH (10:00)
[2021-03-30] MEDS ORDERED: ENOXAPARIN NA (PORCINE) 40 MG/0.4 ML DISP.SYRIN SQ SCH (10:00)
[2021-03-30] MEDS: NADOLOL 20 MG TABLET (FP) PO SCH (21:52)
[2021-03-31] MEDS: LACTULOSE 20 GM/30 ML UDC (FOR ORAL USE ONLY) PO SCH (09:24)
[2021-03-31] MEDS: predniSONE 20 MG TABLET (UD) PO SCH (09:24)
[2021-03-31] MEDS: SPIRONOLACTONE 25 MG TABLET PO SCH ×2 (09:24→09:57)
[2021-03-31] MEDS: PANTOPRAZOLE 40 MG TABLET PO SCH (09:24)
[2021-03-31] MEDS: FLUTICASONE/SALMETEROL 100 MCG/50 MCG DISKUS IH SCH ×2 (09:25→21:00)
[2021-03-31 10:40] LABS: BASO % 0.1 % (0-2.0); EOS % 0.1 % (0-4.5); HEMATOCRIT 30.5 % (32.4-45.2); HEMOGLOBIN 10.5 GM/dL (10.7-15.3); LYMPH % 7.7 % (8-40); MCH 34.6 pg (25.7-33.7); MCHC 34.3 g/dl (32.0-36.0); MEAN CELL VOLUME 100.8 fl (80-96); MEAN PLT VOLUME 9.7 fl (7.5-11.1); MONO % 6.5 % (3.8-10.2); NEUT % 85.6 % (42.8-82.8); PLATELET COUNT 58 10^3/uL (134-434); RBC 3.03 M/mm3 (3.60-5.2); RDW 16.1 % (11.6-15.6); WHITE BLOOD COUNT 6.6 K/mm3 (4.0-10.0)
[2021-03-31 10:55] LABS: ALBUMIN 1.4 g/dl (3.4-5.0); CALCIUM 7.4 mg/dL (8.5-10.1); MAGNESIUM 1.6 mg/dL (1.8-2.4)
[2021-03-31 10:56] LABS: BLOOD UREA NITROGEN 15.4 mg/dL (7-18)
[2021-03-31 10:57] LABS: CREATININE 0.5 mg/dL (0.55-1.3)
[2021-03-31 10:58] LABS: PHOSPHOROUS 2.6 mg/dL (2.5-4.9)
[2021-03-31 10:59] LABS: TOT PROT 6.6 g/dl (6.4-8.2)
[2021-03-31] MEDS: NADOLOL 20 MG TABLET (FP) PO SCH (21:00)
[2021-03-31] MEDS: HEPARIN NA (PORCINE) 5,000 UNITS/ML 1ML VIAL SQ SCH (21:00)
[2021-04-01] MEDS: LACTULOSE 20 GM/30 ML UDC (FOR ORAL USE ONLY) PO SCH (09:34)
[2021-04-01] MEDS: PANTOPRAZOLE 40 MG TABLET PO SCH (09:35)
[2021-04-01] MEDS: HEPARIN NA (PORCINE) 5,000 UNITS/ML 1ML VIAL SQ SCH ×2 (09:35→21:29)
[2021-04-01] MEDS: SPIRONOLACTONE 25 MG TABLET PO SCH (09:35)
[2021-04-01] MEDS: predniSONE 20 MG TABLET (UD) PO SCH (09:35)
[2021-04-01] MEDS: FLUTICASONE/SALMETEROL 100 MCG/50 MCG DISKUS IH SCH ×2 (09:51→21:30)
[2021-04-01] MEDS: NADOLOL 20 MG TABLET (FP) PO SCH (21:29)
[2021-04-02 08:16] LABS: BASO % 0.1 % (0-2.0); EOS % 0.1 % (0-4.5); HEMATOCRIT 32.3 % (32.4-45.2); HEMOGLOBIN 10.8 GM/dL (10.7-15.3); MCHC 33.5 g/dl (32.0-36.0); MEAN CELL VOLUME 101.4 fl (80-96); MEAN PLT VOLUME 9.3 fl (7.5-11.1); MONO % 9.8 % (3.8-10.2); PLATELET COUNT 51 10^3/uL (134-434); RBC 3.19 M/mm3 (3.60-5.2); RDW 16.9 % (11.6-15.6); WHITE BLOOD COUNT 3.9 K/mm3 (4.0-10.0)
[2021-04-02 08:39] LABS: BLOOD UREA NITROGEN 16.8 mg/dL (7-18)
[2021-04-02 08:40] LABS: ALBUMIN 1.5 g/dl (3.4-5.0)
[2021-04-02 08:43] LABS: CREATININE 0.6 mg/dL (0.55-1.3)
[2021-04-02 08:45] LABS: BILIRUBIN,TOTAL 1.1 mg/dL (0.2-1); TOT PROT 6.9 g/dl (6.4-8.2)
[2021-04-02] MEDS ORDERED: PT OWN MED DRAWER 7, Y5N ONE (09:35)
[2021-04-02] MEDS: LACTULOSE 20 GM/30 ML UDC (FOR ORAL USE ONLY) PO SCH (09:41)
[2021-04-02] MEDS: SPIRONOLACTONE 25 MG TABLET PO SCH (09:41)
[2021-04-02] MEDS: predniSONE 20 MG TABLET (UD) PO SCH (09:41)
[2021-04-02] MEDS: FLUTICASONE/SALMETEROL 100 MCG/50 MCG DISKUS IH SCH ×2 (09:42→21:53)
[2021-04-02] MEDS: TIOTROPIUM BROMIDE 2.5 MCG (SPIRIVA) RESPIMAT INHALER IH SCH (09:42)
[2021-04-02] MEDS: PANTOPRAZOLE 40 MG TABLET PO SCH (09:42)
[2021-04-02] MEDS: HEPARIN NA (PORCINE) 5,000 UNITS/ML 1ML VIAL SQ SCH (09:43)
[2021-04-02] MEDS: CYANOCOBALAMIN (VITAMIN B-12) 1000 MCG/1 ML VIAL IM SCH (11:31)
[2021-04-02] MEDS: NADOLOL 20 MG TABLET (FP) PO SCH (21:55)
[2021-04-03 08:10] LABS: BASO % 0.1 % (0-2.0); EOS % 0.3 % (0-4.5); HEMOGLOBIN 12.3 GM/dL (10.7-15.3); LYMPH % 15.7 % (8-40); MCH 34.7 pg (25.7-33.7); MCHC 34.2 g/dl (32.0-36.0); MEAN CELL VOLUME 101.4 fl (80-96); MEAN PLT VOLUME 8.5 fl (7.5-11.1); MONO % 11.6 % (3.8-10.2); NEUT % 72.3 % (42.8-82.8); PLATELET COUNT 58 10^3/uL (134-434); RBC 3.55 M/mm3 (3.60-5.2); RDW 16.7 % (11.6-15.6)
[2021-04-03] MEDS ORDERED: LACTULOSE 20 GM/30 ML UDC (FOR RECTAL USE ONLY) PR ONE (08:15)
[2021-04-03 08:38] LABS: CALCIUM 7.9 mg/dL (8.5-10.1)
[2021-04-03 08:39] LABS: ALBUMIN 1.7 g/dl (3.4-5.0); BLOOD UREA NITROGEN 15.7 mg/dL (7-18); MAGNESIUM 1.7 mg/dL (1.8-2.4)
[2021-04-03 08:41] LABS: PHOSPHOROUS 2.7 mg/dL (2.5-4.9)
[2021-04-03 08:42] LABS: CREATININE 0.5 mg/dL (0.55-1.3)
[2021-04-03 08:43] LABS: BILIRUBIN,TOTAL 1.7 mg/dL (0.2-1); TOT PROT 7.6 g/dl (6.4-8.2)
[2021-04-03] MEDS ORDERED: PT OWN MED DRAWER 7, Y5N ONE (09:07)
[2021-04-03] MEDS: CYANOCOBALAMIN (VITAMIN B-12) 1000 MCG/1 ML VIAL IM SCH (09:11)
[2021-04-03] MEDS: SPIRONOLACTONE 25 MG TABLET PO SCH (09:14)
[2021-04-03] MEDS: LACTULOSE 20 GM/30 ML UDC (FOR ORAL USE ONLY) PO SCH (09:14)
[2021-04-03] MEDS: predniSONE 20 MG TABLET (UD) PO SCH (09:15)
[2021-04-03] MEDS: PANTOPRAZOLE 40 MG TABLET PO SCH (09:15)
[2021-04-03] MEDS: FLUTICASONE/SALMETEROL 100 MCG/50 MCG DISKUS IH SCH ×2 (09:15→22:30)
[2021-04-03] MEDS: TIOTROPIUM BROMIDE 2.5 MCG (SPIRIVA) RESPIMAT INHALER IH SCH (09:15)
[2021-04-03] MEDS: LACTULOSE 20 GM/30 ML UDC (FOR RECTAL USE ONLY) PR SCH ×2 (15:23→20:30)
[2021-04-03] MEDS ORDERED: HALOPERIDOL LACTATE 5 MG/ML IM ONE (18:09)
[2021-04-03] MEDS ORDERED: HALOPERIDOL LACTATE 5 MG/ML ONE (18:15)
[2021-04-03] MEDS ORDERED: FUROSEMIDE 40 MG/4 ML INJECTABLE VIAL IVPUSH ONE (18:23)
[2021-04-03] MEDS: NADOLOL 20 MG TABLET (FP) PO SCH (22:30)
[2021-04-03 23:09] LABS: ARTERIAL BLD GAS O2 SATURATION 91.7 % (95-98); ARTERIAL BLOOD GAS BASE EXCESS -0.2 mmol/L (-2-2); ARTERIAL BLOOD GAS pH 7.456 (7.350-7.450)
[2021-04-03 23:29] LABS: CALCIUM 8.7 mg/dL (8.5-10.1)
[2021-04-03 23:33] LABS: CREATININE 0.8 mg/dL (0.55-1.3)
[2021-04-03] MEDS: KCL 10 MEQ IVPB 10 MEQ/100 ML INFUS.BAG IVPB SCH (23:45)
[2021-04-04] MEDS ORDERED: POTASSIUM CHLORIDE ORAL LIQUID 20 MEQ/15 ML PO ONE
[2021-04-04] MEDS: KCL 10 MEQ IVPB 10 MEQ/100 ML INFUS.BAG IVPB SCH ×2 (01:56→03:02)
[2021-04-04] MEDS: LACTULOSE 20 GM/30 ML UDC (FOR RECTAL USE ONLY) PR SCH ×2 (03:00→09:47)
[2021-04-04 07:08] LABS: BASO % 0.1 % (0-2.0); EOS % 0.4 % (0-4.5); HEMATOCRIT 38.6 % (32.4-45.2); LYMPH % 8.7 % (8-40); MCH 34.2 pg (25.7-33.7); MCHC 33.6 g/dl (32.0-36.0); MEAN CELL VOLUME 101.8 fl (80-96); MEAN PLT VOLUME 9.7 fl (7.5-11.1); MONO % 10.7 % (3.8-10.2); NEUT % 80.1 % (42.8-82.8); PLATELET COUNT 63 10^3/uL (134-434); RBC 3.79 M/mm3 (3.60-5.2); RDW 17.1 % (11.6-15.6); WHITE BLOOD COUNT 5.3 K/mm3 (4.0-10.0)
[2021-04-04 07:52] LABS: ALBUMIN 1.8 g/dl (3.4-5.0); CALCIUM 8.2 mg/dL (8.5-10.1)
[2021-04-04 07:53] LABS: BLOOD UREA NITROGEN 21.7 mg/dL (7-18); MAGNESIUM 1.9 mg/dL (1.8-2.4)
[2021-04-04 07:56] LABS: CREATININE 0.7 mg/dL (0.55-1.3); PHOSPHOROUS 3.8 mg/dL (2.5-4.9)
[2021-04-04 07:57] LABS: BILIRUBIN,TOTAL 2.5 mg/dL (0.2-1); TOT PROT 7.5 g/dl (6.4-8.2)
[2021-04-04] MEDS ORDERED: DEXTROSE 50%-WATER 25 GM/50 ML DISP.SYRIN IVPUSH ONE (08:27)
[2021-04-04] MEDS ORDERED: cefTRIAXone SODIUM 1 GM VIAL ONE (09:37)
[2021-04-04] MEDS ORDERED: DEXTROSE 50%-WATER 25 GM/50 ML DISP.SYRIN ONE (09:37)
[2021-04-04] MEDS ORDERED: DEXTROSE 5%-WATER - 50 ML IVPB ONE (09:37)
[2021-04-04] MEDS: CEFTRIAXONE 1 GM in DEXTROSE 5%-WATER - 50 ML IVPB SCH (09:46)
[2021-04-04] MEDS: SPIRONOLACTONE 25 MG TABLET PO SCH (09:46)
[2021-04-04] MEDS: CYANOCOBALAMIN (VITAMIN B-12) 1000 MCG/1 ML VIAL IM SCH (09:47)
[2021-04-04] MEDS: TIOTROPIUM BROMIDE 2.5 MCG (SPIRIVA) RESPIMAT INHALER IH SCH (09:47)
[2021-04-04] MEDS: FLUTICASONE/SALMETEROL 100 MCG/50 MCG DISKUS IH SCH ×2 (09:47→21:29)
[2021-04-04] MEDS: PANTOPRAZOLE 40 MG TABLET PO SCH (09:47)
[2021-04-04] MEDS ORDERED: CEFTRIAXONE 1 GM in DEXTROSE 5%-WATER - 50 ML IVPB SCH (10:00)
[2021-04-04] MEDS: ALBUTEROL SO4 2.5/IPRATROPIUM 0.5 INH SOL 3 ML VIAL.NEB. NEB PRN (11:39)
[2021-04-04] MEDS ORDERED: LORazepam 1 MG TABLET PO ONE (11:45)
[2021-04-04] MEDS: LACTULOSE 20 GM/30 ML UDC (FOR ORAL USE ONLY) PO SCH ×2 (14:41→21:26)
[2021-04-04] MEDS: NADOLOL 20 MG TABLET (FP) PO SCH (21:26)
[2021-04-04] MEDS: LORazepam 1 MG TABLET PO SCH (21:26)
[2021-04-05] MEDS: LACTULOSE 20 GM/30 ML UDC (FOR ORAL USE ONLY) PO SCH ×2 (05:36→14:57)
[2021-04-05] MEDS: ALBUTEROL SO4 2.5/IPRATROPIUM 0.5 INH SOL 3 ML VIAL.NEB. NEB PRN (07:40)
[2021-04-05 07:52] LABS: BASO % 0.2 % (0-2.0); HEMATOCRIT 32.2 % (32.4-45.2); HEMOGLOBIN 11.1 GM/dL (10.7-15.3); LYMPH % 12.9 % (8-40); MCH 34.9 pg (25.7-33.7); MCHC 34.4 g/dl (32.0-36.0); MEAN CELL VOLUME 101.5 fl (80-96); MEAN PLT VOLUME 9.1 fl (7.5-11.1); MONO % 11.5 % (3.8-10.2); NEUT % 72.4 % (42.8-82.8); PLATELET COUNT 53 10^3/uL (134-434); RBC 3.17 M/mm3 (3.60-5.2); RDW 16.9 % (11.6-15.6); WHITE BLOOD COUNT 3.5 K/mm3 (4.0-10.0)
[2021-04-05 08:23] LABS: CALCIUM 7.8 mg/dL (8.5-10.1)
[2021-04-05 08:24] LABS: ALBUMIN 1.6 g/dl (3.4-5.0); BLOOD UREA NITROGEN 15.3 mg/dL (7-18); MAGNESIUM 1.6 mg/dL (1.8-2.4)
[2021-04-05 08:28] LABS: CREATININE 0.6 mg/dL (0.55-1.3); PHOSPHOROUS 2.7 mg/dL (2.5-4.9)
[2021-04-05 08:29] LABS: BILIRUBIN,TOTAL 2.1 mg/dL (0.2-1); TOT PROT 6.6 g/dl (6.4-8.2)
[2021-04-05] MEDS ORDERED: cefTRIAXone SODIUM 1 GM VIAL ONE (11:20)
[2021-04-05] MEDS ORDERED: DEXTROSE 5%-WATER - 50 ML IVPB ONE (11:21)
[2021-04-05] MEDS: SPIRONOLACTONE 25 MG TABLET PO SCH (11:23)
[2021-04-05] MEDS: LORazepam 1 MG TABLET PO SCH (11:23)
[2021-04-05] MEDS: CYANOCOBALAMIN (VITAMIN B-12) 1000 MCG/1 ML VIAL IM SCH (11:23)
[2021-04-05] MEDS: CEFTRIAXONE 1 GM in DEXTROSE 5%-WATER - 50 ML IVPB SCH (11:23)
[2021-04-05] MEDS: PANTOPRAZOLE 40 MG TABLET PO SCH (11:23)
[2021-04-05] MEDS: TIOTROPIUM BROMIDE 2.5 MCG (SPIRIVA) RESPIMAT INHALER IH SCH (11:26)
[2021-04-05] MEDS: FLUTICASONE/SALMETEROL 100 MCG/50 MCG DISKUS IH SCH (11:26)
[2021-04-05 15:53] VITALS: BP 95/54; PULSE 63; TEMP 97.9
== END 2021-04-05 17:45 | disposition home or self-care (01) | DRG 133 ==
LOC: JER 07:37 → JERBED 10:47 → OBSVTOIN 11:36 → J8W 19:04
PROVIDERS: ADMIT Internal Medicine
DX: J96.01 Acute respiratory failure with hypoxia (principal); E43 Unspecified severe protein-calorie malnutrition; J44.1 Chronic obstructive pulmonary disease with (acute) exacerbation; D53.9 Nutritional anemia, unspecified; D72.819 Decreased white blood cell count, unspecified; F10.10 Alcohol abuse, uncomplicated; D61.818 Other pancytopenia; K70.31 Alcoholic cirrhosis of liver with ascites; Z76.82 Awaiting organ transplant status; Z68.1 Body mass index [BMI] 19.9 or less, adult; G47.00 Insomnia, unspecified; R64 Cachexia; E83.51 Hypocalcemia; F05 Delirium due to known physiological condition; K72.90 Hepatic failure, unspecified without coma; F17.210 Nicotine dependence, cigarettes, uncomplicated
CPT/HCPCS: 36415; 36600; 71045-TC-FY; 76705-TC; 80048; 80053; 82140; 82308; 82607; 82803; 82962; 83735; 83880; 84100; 84484; 85025; 85610; 87040; 87070; 87186; 87205; 87804; 87807; 87899; 93005; 93010; 93306-TC; 94640; 94761; 97116-GP; 97162-GP; 99285-25; C9803; G0378; J0131; J1100; J1644; U0003; U0005

== ENCOUNTER 2021-12-10 05:11 | Emergency (ER) | payer OTHER ==
[2021-12-10 05:28] VITALS: BMI 17.2
[2021-12-10] MEDS ORDERED: LACTATED RINGERS SOLUTION 1000 ML INFUS.BAG IV ONE (05:51)
[2021-12-10] MEDS ORDERED: ONDANSETRON 4 MG/2 ML VIAL IVPUSH ONE (05:51)
[2021-12-10] MEDS ORDERED: ACETAMINOPHEN 1000 MG/100 ML BAG IVPB ONE (05:51)
[2021-12-10] MEDS ORDERED: VANCOMYCIN 1 GM in D5W (PRE-DOCKED) 1,000 MG/250 ML IVPB ONE (05:53)
[2021-12-10] MEDS ORDERED: CEFEPIME HCL/D5W 1 GM/50 ML BAG IVPB ONE (05:56)
[2021-12-10] MEDS ORDERED: ACETAMINOPHEN INJECTION 100 ML IVPB ONE (06:51)
[2021-12-10 08:08] LABS: HEMATOCRIT 24.7 % (32.4-45.2); HEMOGLOBIN 8.4 GM/dL (10.7-15.3); MCH 33.2 pg (25.7-33.7); MCHC 34.1 g/dl (32.0-36.0); MEAN CELL VOLUME 97.3 fl (80-96); MEAN PLT VOLUME 9.1 fl (7.5-11.1); PLATELET COUNT 79 10^3/uL (134-434); RBC 2.54 M/mm3 (3.60-5.2); RDW 18.5 % (11.6-15.6); WHITE BLOOD COUNT 6.2 K/mm3 (4.0-10.0)
[2021-12-10] MEDS ORDERED: VANCOMYCIN 1 GRAM (PRE-DOCKED) 1,000 MG/250 ML BAG IVPB ONE (08:14)
[2021-12-10] MEDS ORDERED: ONDANSETRON 4 MG/2 ML VIAL ONE (08:14)
[2021-12-10] MEDS ORDERED: CEFEPIME 1 GM/100 ML BAG IVPB ONE (08:15)
[2021-12-10 08:18] LABS: LACTIC ACID 2.1 mmol/L (0.4-2.0)
[2021-12-10 08:19] LABS: INR 2.26 (0.83-1.09); PROTHROMBIN TIME (PATIENT) 26.2 SEC (9.7-13.0); VENOUS BASE EXCESS -2.2 mmol/L (-2-2); VENOUS O2 SATURATION 95.7 % (70-80); VENOUS PCO2 27.2 mmHg (38-52); VENOUS PH 7.493 (7.310-7.410)
[2021-12-10 08:22] LABS: ACTIVATED PTT 33.9 SECONDS (25.2-36.5)
[2021-12-10 08:23] LABS: ALBUMIN 2.5 g/dl (3.4-5.0); BLOOD UREA NITROGEN 11.2 mg/dL (7-18); CALCIUM 7.8 mg/dL (8.5-10.1); MAGNESIUM 1.7 mg/dL (1.8-2.4)
[2021-12-10 08:26] LABS: CREATININE 0.6 mg/dL (0.55-1.3)
[2021-12-10 08:28] LABS: BILIRUBIN,TOTAL 4.1 mg/dL (0.2-1); TOT PROT 7.4 g/dl (6.4-8.2)
[2021-12-10] MEDS ORDERED: SODIUM CHLORIDE 0.9% 500 ML INFUS.BAG IV ONE (09:16)
[2021-12-10 10:05] LABS: ANISOCYTOSIS 0; HELMET CELLS 0; HOWELL-JOLLY BODIES 0; MACROCYTOSIS 0; OVALOCYTE 0; ROULEAU 0; SICKELED CELLS 0; TARGET CELLS 0; TEAR DROP CELLS 0; TOXIC GRANULATION 0
[2021-12-10 14:35] VITALS: BP 98/64; PULSE 72; TEMP 98
== END 2021-12-10 15:07 | disposition short-term general hospital (02) ==
LOC: JER 05:11
PROC: 3E0333Z Introduction of Anti-inflammatory into Peripheral Vein, Percutaneous Approach (ICD-10-PCS; principal; 2021-12-10)
PROC: 3E03329 Introduction of Other Anti-infective into Peripheral Vein, Percutaneous Approach (ICD-10-PCS; 2021-12-10)
PROC: 3E033GC Introduction of Other Therapeutic Substance into Peripheral Vein, Percutaneous Approach (ICD-10-PCS; 2021-12-10)
PROC: 3E03329 Introduction of Other Anti-infective into Peripheral Vein, Percutaneous Approach (ICD-10-PCS; 2021-12-10)
DX: J44.1 Chronic obstructive pulmonary disease with (acute) exacerbation (principal); R10.9 Unspecified abdominal pain
CPT/HCPCS: 36415; 71045-TC-FY; 74177-TC; 80053; 82803; 83605; 83690; 83735; 84484; 85025; 85610; 85730; 86850; 86900; 86901; 87040; 93005; 93010; 96374; 96375; 99285-25; C9803-CS; Q9967; U0003; U0005

== ENCOUNTER 2022-04-30 10:57 | Emergency (ER) | payer OTHER ==
[2022-04-30 11:09] VITALS: BP 119/62; TEMP 97.8; BMI 18.9
[2022-04-30] MEDS ORDERED: ACETAMINOPHEN 325 MG TABLET (FP) PO ONE (12:44)
[2022-04-30] MEDS ORDERED: ALBUTEROL SO4 2.5/IPRATROPIUM 0.5 INH SOL 3 ML VIAL.NEB. NEB ONE ×2 (12:49→12:52)
[2022-04-30] MEDS ORDERED: ACETAMINOPHEN 325 MG TABLET (FP) ONE (12:51)
[2022-04-30 14:25] LABS: BASO % 0.9 % (0-2.0); EOS % 0.6 % (0-4.5); HEMOGLOBIN 8.9 GM/dL (10.7-15.3); LYMPH % 12.1 % (8-40); MCH 32.6 pg (25.7-33.7); MCHC 33.1 g/dl (32.0-36.0); MEAN CELL VOLUME 98.5 fl (80-96); MEAN PLT VOLUME 8.4 fl (7.5-11.1); MONO % 15.2 % (3.8-10.2); NEUT % 71.2 % (42.8-82.8); PLATELET COUNT 61 10^3/uL (134-434); RBC 2.74 M/mm3 (3.60-5.2); RDW 21.1 % (11.6-15.6)
[2022-04-30 14:29] LABS: WHITE BLOOD COUNT 1.8 K/mm3 (4.0-10.0)
[2022-04-30 14:52] LABS: CALCIUM 8.1 mg/dL (8.5-10.1)
[2022-04-30 14:53] LABS: BLOOD UREA NITROGEN 8.2 mg/dL (7-18)
[2022-04-30 14:56] LABS: CREATININE 0.6 mg/dL (0.55-1.3)
[2022-04-30 14:58] LABS: TOT PROT 8.4 g/dl (6.4-8.2)
[2022-04-30 15:18] LABS: ANISOCYTOSIS 1+; MACROCYTOSIS 1+
[2022-04-30 15:44] VITALS: PULSE 83
[2022-04-30 15:46] VITALS: RESP 21
== END 2022-04-30 16:26 | disposition home or self-care (01) ==
LOC: JER 10:57
PROC: 3E0F7GC Introduction of Other Therapeutic Substance into Respiratory Tract, Via Natural or Artificial Opening (ICD-10-PCS; principal; 2022-04-30)
DX: U07.1 COVID-19 (principal)
CPT/HCPCS: 0241U-QW; 36415; 71045-TC-FY; 80053; 84484; 85025; 93005; 93010; 99285-25

== ENCOUNTER 2022-09-04 04:07 | Emergency (ER) | payer OTHER ==
[2022-09-04] MEDS ORDERED: DEXAMETHASONE SOD PHOSPHATE 10 MG/1 ML VIAL ONE (04:15)
[2022-09-04 04:24] VITALS: BMI 22.4
[2022-09-04 04:47] LABS: BASO % 0.5 % (0-2.0); EOS % 1.2 % (0-4.5); HEMATOCRIT 30.9 % (32.4-45.2); HEMOGLOBIN 10.1 GM/dL (10.7-15.3); LYMPH % 7.9 % (8-40); MCH 32.8 pg (25.7-33.7); MCHC 32.5 g/dl (32.0-36.0); MEAN CELL VOLUME 100.8 fl (80-96); MEAN PLT VOLUME 8.3 fl (7.5-11.1); MONO % 4.1 % (3.8-10.2); NEUT % 86.3 % (42.8-82.8); PLATELET COUNT 74 10^3/uL (134-434); RBC 3.07 M/mm3 (3.60-5.2); RDW 24.7 % (11.6-15.6); WHITE BLOOD COUNT 4.7 K/mm3 (4.0-10.0)
[2022-09-04 04:54] LABS: INR 1.9 (0.83-1.09); PROTHROMBIN TIME (PATIENT) 21.9 SEC (9.7-13.0)
[2022-09-04 04:57] LABS: ACTIVATED PTT 39.6 SECONDS (25.2-36.5)
[2022-09-04 05:00] VITALS: PULSE 106
[2022-09-04 05:05] LABS: CALCIUM 8.4 mg/dL (8.5-10.1)
[2022-09-04 05:06] LABS: BLOOD UREA NITROGEN 7.4 mg/dL (7-18); MAGNESIUM 1.8 mg/dL (1.8-2.4)
[2022-09-04 05:08] LABS: VENOUS BASE EXCESS -4.3 mmol/L (-2-2); VENOUS O2 SATURATION 98.1 % (70-80); VENOUS PCO2 29.3 mmHg (38-52); VENOUS PH 7.431 (7.310-7.410)
[2022-09-04 05:09] LABS: CREATININE 0.7 mg/dL (0.55-1.3)
[2022-09-04 05:10] LABS: TOT PROT 7.8 g/dl (6.4-8.2)
[2022-09-04 05:11] LABS: BILIRUBIN,TOTAL 5.3 mg/dL (0.2-1)
[2022-09-04 05:14] LABS: N-TERMINAL BNP 24.8 pg/ml (5-125)
[2022-09-04] MEDS ORDERED: DEXTROSE 50%-WATER - 25 GM/50 ML VIAL IVPUSH ONE (05:15)
[2022-09-04 05:18] LABS: LACTIC ACID 6.3 mmol/L (0.4-2.0)
[2022-09-04] MEDS ORDERED: DEXTROSE 50%-WATER 25 GM/50 ML DISP.SYRIN ONE (05:22)
[2022-09-04 05:27] VITALS: BP 116/61; RESP 12
[2022-09-04 05:31] VITALS: TEMP 98.6
[2022-09-04 09:23] LABS: ANISOCYTOSIS 3+; MACROCYTOSIS 1+
== END 2022-09-04 06:30 | disposition short-term general hospital (02) ==
LOC: JER 04:07
PROC: 3E033GC Introduction of Other Therapeutic Substance into Peripheral Vein, Percutaneous Approach (ICD-10-PCS; principal; 2022-09-04)
DX: K70.31 Alcoholic cirrhosis of liver with ascites (principal); D69.6 Thrombocytopenia, unspecified; K76.81 Hepatopulmonary syndrome; Z20.822 Contact with and (suspected) exposure to COVID-19
CPT/HCPCS: 0241U-QW; 36415; 71045-TC-FY; 80053; 82803; 83605; 83690; 83735; 83880; 84484; 85025; 85610; 85730; 86850; 86900; 86901; 93005; 93010; 99291